=== PATIENT | female | born 1935 | race Caucasian/White ===

== ENCOUNTER 2017-09-05 07:45 | Outpatient (CLI) | payer MEDICARE ==
--- NOTE | 2017-09-05 09:31 | RAD ---
ESOPHAGRAM: History Dysphagia. Difficulty swallowing. Possible aspiration. FINDINGS: Single-column contrast evaluation of the esophagus shows normal anatomic appearance. A 12 mm barium tablet traversed the esophagus without holdup. There is good primary and secondary peristalsis. Non propulsive tertiary-type contractions were apparent. No significant hiatal hernia or gastroesophagea l reflux are visible. IMPRESSION: 1. Mild presbyesophagus. No significant abnormalities are demonstrated. 2. In setting of concern for aspiration and the patient's difficulty speaking, consultation with spe ech pathology may be helpful. POS: [facility]
== END 2017-09-05 07:46 | disposition home or self-care (01) ==
LOC: RAD 07:45
PROVIDERS: ATTEND Family Medicine
DX: R13.10 Dysphagia, unspecified (principal); K22.8 Other specified diseases of esophagus
CPT/HCPCS: 74220

== ENCOUNTER 2017-09-07 15:39 | Outpatient (CLI) | payer MEDICARE ==
[~2017-09-07 15:39] MED LIST: Gadobenate Dimeglumine 529 MG/1 ML (20ML VIAL) ONE
--- NOTE | 2017-09-07 19:22 | MRI ---
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 COMPARISON: MRI of 11/17/10. TECHNIQUE: Multiple sequences obtained in axial, sagittal, and coronal planes; pre and post IV injection of gado linium-based contrast agent: 7 mm of Multihance. FINDINGS: The cervical spinal cord is diffusely very atrophic. There is at least mild impingement on the police reserves commander ior aspect of the spinal cord by ligamentum flavum thickening at C2-3 level, a new finding since . The current T2 weighted axial images are severely degraded by patient motion. This sequence was r epeated, but there is severe patient motion on the repeated sequence as well. There are multiple scat tered small T2 hyperintense lesion in the bilateral casas radiata and centrum semiovale, representin g mild to moderate chronic ischemic white matter changes due to microvascular atherosclerosis. This i s minimally worse than in 11/17/10. There is diffuse brain parenchymal volume loss, typical for age. No mass effect, midline shift, recent or remote intra-axial hemorrhage, restricted diffusion, or extra- axial fluid collection. No evidence of moderate sized or large infarction of any age. No abnormal enh ancement or mass. IMPRESSION: 1. 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 2. Involutional changes and mild to moderate chronic ischemic white matter changes of the brain, typical for age. 3. No acute or aggressive intracranial process identified. [facility]ST[facility] POS: [facility]
== END 2017-09-07 15:40 | disposition home or self-care (01) ==
LOC: SCSMRI 15:39
PROVIDERS: ATTEND Psychiatry & Neurology Neurology
DX: G60.3 Idiopathic progressive neuropathy (principal); G93.89 Other specified disorders of brain
CPT/HCPCS: 70553; A9579

== ENCOUNTER 2018-04-11 13:29 | Outpatient (CLI) | payer MEDICARE | END 2018-04-11 13:30 | disposition home or self-care (01) | LOC: ULT 13:29 | PROVIDERS: ATTEND Family Medicine | DX: R60.9 Edema, unspecified (principal); I08.3 Combined rheumatic disorders of mitral, aortic and tricuspid valves; I38 Endocarditis, valve unspecified | CPT/HCPCS: 93306 ==

== ENCOUNTER 2018-08-16 13:48 | Inpatient (IN) | payer MEDICARE ==
[2018-08-16 15:05] LABS: #Basophils 0.1 thou/uL (0.0-0.2); #Eosinphils 0.2 thou/uL (0.0-0.7); #Lymphocytes 1.4 thou/uL (1.20-3.40); #Neutrophils 15.4 thou/uL (1.40-6.50); %Basophils 0.5 % (0.0-1.0); %Eosinophils 1.2 % (0.0-10.0); %Lymphocytes 7.5 % (21.0-51.0); %Monocytes 5.3 % (0.0-10.0); %Neutrophils 85.4 % (42.0-75.0); Hemoglobin 14.4 g/dL (12.0-16.0); Mean Corpuscular Hemoglobin 27.9 pg (27.0-31.0); Mean Corpuscular Volume 84.5 fL (78.0-98.0); Mean Platelet Volume 7.6 fL (7.4-10.4); Platelet Count 276 thou/uL (130-400); RBC Distribution Width 11.9 % (11.5-14.5); Red Blood Cell (RBC) Count 5.16 mill/uL (4.20-5.40); White Blood Cell (WBC) Count 18.1 thou/uL (4.8-10.8)
[2018-08-16 15:21] LABS: ALT (SGPT) 15 U/L (8-55); AST (SGOT) 15 U/L (5-34); Albumin 3.9 g/dL (3.4-4.8); Alkaline Phosphatase 77 U/L (40-150); Anion Gap 16 mmol/L (10-20); BUN (Urea Nitrogen) 41 mg/dL (9.8-20.1); Bilirubin, Total 0.8 mg/dL (0.2-1.2); Calc. Creatinine Clearance 0 mL/min (70-130); Calcium 10.3 mg/dL (7.8-10.44); Carbon Dioxide 25 mmol/L (23-31); Chloride 103 mmol/L (98-107); Estimated GFR-MDRD 25; Globulin 3.5 g/dL (2.4-3.5); Glucose 124 mg/dL (83-110); Lipase 61 U/L (8-78); Protein, Total 7.4 g/dL (6.0-8.3); Sodium 141 mmol/L (136-145)
[2018-08-16 15:22] LABS: CKMB 1.1 ng/mL (0-6.6); Troponin I Less than 0.010 ng/mL (< 0.028)
[2018-08-16 15:25] LABS: Potassium 2.9 mmol/L (3.5-5.1)
[2018-08-16] MEDS ORDERED: Potassium Chloride 20 MEQ/100 ML PREMIX BAG ONE (15:29)
--- NOTE | 2018-08-16 15:32 | RAD ---
PORTABLE CHEST: HISTORY: Urinary tract infection. FINDINGS: The lungs appear well aerated and clear. No focal infiltrate. Heart is mildly enlarged. Vascular m arkings upper normal. CP angles are obscured and tiny effusions are not excluded. Clips in the left axilla indicate prior left breast procedure. Mild aortic calcification. IMPRESSION: No evidence of acute lung process. Tiny effusions are not excluded. There is mild cardiomegaly. POS: [facility]
[2018-08-16 16:22] LABS: Bilirubin Negative (Negative); Blood, Urine Negative (Negative); Clarity Clear (Clear); Glucose, Urine (Dipstick) Negative (Negative); Leukocyte Negative (Negative); Nitrite Negative (Negative); Protein, Urine (Dipstick) 30 mg/dL (Neg-Trace); Urobilinogen 0.2 mg/dL (0.2-1.0)
[2018-08-16 16:26] LABS: RBC/HPF None Seen HPF (0-3); Squamous Epithelial 0-3 HPF (0-3); WBC/HPF None Seen HPF (0-3)
[2018-08-16 16:27] LABS: Bacteria/HPF Rare-Few HPF (None Seen)
--- NOTE | 2018-08-16 17:09 | CT ---
CT OF ABDOMEN PERFORMED WITHOUT CONTRAST ENHANCEMENT 08/16/18 COMPARISON: 03/18/17 study. HISTORY: Urinary tract infection. Patient has not urinated since this morning. No IV contrast administered due to low GFR. Lung bases are clear of any infiltrative process. There is some linear atelectasis or scar. The liver and spleen are normal in size and appearance. The pancreas is atrophic. Gallstones are note d. Right and left adrenal glands are normal in size. Lobulated contour to both kidneys are noted. In the anterior cortex of the mid pole of the left kidney, there previously was described an exophytic proj ection. This is incompletely characterized and did not definitely appear to represent a cyst and coul d just present lobulation. It measures approximately 12 to 13 mm in size. It is incompletely characte rized on this study. There are some hypodensities in the lower pole of both kidneys which appears sta ble and appear to represent cysts. There is a nonobstructing lower pole left renal calculus seen. The re is no significant periaortic or mesenteric adenopathy. CT OF PELVIS PERFORMED WITHOUT CONTRAST ENHANCEMENT: No evidence of adenopathy, mass or free fluid. The bladder does not appear distended. IMPRESSION: 1. Punctate nonobstructing lower pole left renal calculus. 2. Two hypodensities within the right kidney and one within the left kidney which most likely re presents cysts. There is also an area of slightly lobulated contour to the anterior cortex in the mid pole of the left kidney may just represent lobulation. It appears stable in appearance. 3. Also incidentally noted are two punctate nonobstructing upper pole right renal calculi. 4. No obstruction of either kidney. No bladder distention. POS: [facility]
[2018-08-16 17:13] LABS: Anion Gap 16 mmol/L (10-20); BUN (Urea Nitrogen) 41 mg/dL (9.8-20.1); Calc. Creatinine Clearance 0 mL/min (70-130); Calcium 9.6 mg/dL (7.8-10.44); Carbon Dioxide 22 mmol/L (23-31); Chloride 106 mmol/L (98-107); Estimated GFR-MDRD 27; Glucose 144 mg/dL (83-110); Sodium 141 mmol/L (136-145)
[2018-08-16 17:20] LABS: Troponin I Less than 0.010 ng/mL (< 0.028)
[2018-08-16 17:22] LABS: Potassium 2.9 mmol/L (3.5-5.1)
[2018-08-16] MEDS ORDERED: Piperacillin/Tazobactam 2.25 GM VIAL ONE (18:01)
[2018-08-16] MEDS ORDERED: Sodium Chloride 0.9% 100 ML ONE (18:01)
[2018-08-16] MEDS ORDERED: Sodium Chloride 0.9% 1,000 ML IV SCH ×2 (19:55→23:15)
[2018-08-16] MEDS ORDERED: Acetaminophen 325 MG TAB PO PRN (19:55)
[2018-08-16 20:40] LABS: Troponin I Less than 0.010 ng/mL (< 0.028)
[2018-08-16 21:57] LABS: Lactic Acid 2.5 mmol/L (0.5-2.2)
[2018-08-16] MEDS ORDERED: Senokot S 8.6-50 MG TAB PO PRN (23:09)
[2018-08-16] MEDS ORDERED: Ondansetron ODT 4 MG TAB PO PRN (23:09)
[2018-08-16] MEDS: Ondansetron PF 4 MG/2 ML Vial IVP PRN (23:21)
[2018-08-17] MEDS ORDERED: Piperacillin/Tazobactam 2.25 GM in Sodium Chloride 0.9% 100 ML IVPB SCH (02:00)
[2018-08-17 06:28] LABS: #Lymphocytes 0.9 thou/uL (1.20-3.40); #Monocytes 0.8 thou/uL (0.11-0.59); %Basophils 0.2 % (0.0-1.0); %Eosinophils 0.4 % (0.0-10.0); %Lymphocytes 8.9 % (21.0-51.0); %Monocytes 8.2 % (0.0-10.0); %Neutrophils 82.4 % (42.0-75.0); Hemoglobin 12.9 g/dL (12.0-16.0); Mean Corpuscular HGB CONC 33.4 g/dL (32.0-36.0); Mean Corpuscular Hemoglobin 29.5 pg (27.0-31.0); Mean Corpuscular Volume 88.5 fL (78.0-98.0); Mean Platelet Volume 7.4 fL (7.4-10.4); Platelet Count 259 thou/uL (130-400); RBC Distribution Width 12.1 % (11.5-14.5); Red Blood Cell (RBC) Count 4.37 mill/uL (4.20-5.40); White Blood Cell (WBC) Count 9.8 thou/uL (4.8-10.8)
[2018-08-17 06:33] LABS: Anion Gap 15 mmol/L (10-20); BUN (Urea Nitrogen) 37 mg/dL (9.8-20.1); BUN/Creatinine Ratio 22.84; Calc. Creatinine Clearance 32 mL/min (70-130); Calcium 8.6 mg/dL (7.8-10.44); Carbon Dioxide 16 mmol/L (23-31); Chloride 112 mmol/L (98-107); Estimated GFR-MDRD 30; Glucose 111 mg/dL (83-110); Sodium 140 mmol/L (136-145)
[2018-08-17 06:36] LABS: Phosphorus 1.9 mg/dL (2.3-4.7); Potassium 2.6 mmol/L (3.5-5.1)
[2018-08-17] MEDS ORDERED: Magnesium 2 GM/50 ML 2 GM in Premix Bag 1 BAG IVPB SCH (08:00)
--- NOTE | 2018-08-17 08:37 | HP ---
CHIEF COMPLAINT: Dysuria and urinary retention. HISTORY OF PRESENT ILLNESS: This is an 83-year-old female with past medical history of hypertension, breast CA, status post chemo and surgery, transient ischemic attacks, peripheral neuropathy, and history of recurrent kidney stones, presenting with dysuria and possible urinary retention. Per records, the patient finished taking antibiotics for UTI a day prior to this admission, the patient was on Cipro. The patient states that she has not been able to urinate over time, so family is concerned that the patient is probably retaining urine. At this point, the patient denies any pain, fever, dizziness, chest pain, palpitations, shortness of breath, abdominal pain; however, the patient is endorsing emesis x1 and generalized weakness. Of note, the patient had an echo done recently, which showed left ventricular ejection fraction of 60% to 65%. REVIEW OF SYSTEMS: Positive for nausea, vomiting, constipation, possible urinary retention, otherwise, as documented in the HPI. All other systems were reviewed and are negative. PAST MEDICAL HISTORY: Positive for hypertension; breast CA, status post chemotherapy and surgery; peripheral neuropathy; transient ischemic attack; kidney stone. FAMILY HISTORY: Reviewed and noncontributory to this visit. PAST SURGICAL HISTORY: Hysterectomy, mastectomy of the right breast, tonsillectomy. PSYCHIATRIC HISTORY: No previous psychiatric history. SOCIAL HISTORY: The patient denies alcohol use. Denies any use of illicit drugs, and denies any smoking history. The patient lives at home. ALLERGIES: THE PATIENT IS ALLERGIC TO ANCEF, IBUPROFEN, AND MACROBID. CURRENT MEDICATIONS: The patient takes Bystolic 10 mg, Tekturna HCT 300-25 mg a day, tramadol 50 mg every 6 hours, aspirin 81 mg, losartan. PHYSICAL EXAMINATION: VITAL SIGNS: The patient's blood pressure is 137/78, pulse ox 97, respiratory rate of 18, temperature of 98, O2 saturation of 94. GENERAL: The patient is alert, awake, oriented, lying in bed. Does not appear to be in any distress. HEENT: Normocephalic and atraumatic. Pupils are equally round and reactive to light. Extraocular movements are intact. No scleral icterus. No conjunctival pallor. Mucous membranes are dry. NECK: Supple. Full range of motion. Trachea is midline. No JVD. LUNGS: Clear to auscultation bilaterally. No wheezing, no rales, no rhonchi are appreciated. CARDIAC: Positive S1 and S2, regular rate and rhythm. No murmurs, no gallops, no rubs appreciated. ABDOMEN: Soft, nontender, and nondistended. Positive bowel sounds in all quadrants. EXTREMITIES: The patient has 5/5 upper extremity strength and 5/5 lower extremity strength. NEUROLOGIC: Cranial nerves 2 through 12 grossly intact. No neurologic deficits noted. SKIN: Warm, dry, and intact. IMAGING DATA: EKG, 12 leads, shows normal sinus rhythm with a rate of 92. Chest x-ray shows possible small bilateral pleural effusions. LABORATORY DATA: WBC is 18.1, hemoglobin is 14.4, hematocrit is 45.4, platelet count is 276, neutrophils of 85.4%. Sodium is 141, potassium is 2.9, chloride is 106, carbon dioxide of 22, anion gap of 16, BUN is 41, creatinine is 1.79, glucose is 144, lactic acid is 2.3. Troponin is 0.010 x2. Urinalysis is negative for any leukocyte esterases or nitrites. ASSESSMENT AND PLAN: This is an 83-year-old female with past medical history of urinary tract infection, presenting with; 1. Urinary retention. At this point, we will bladder scan the patient, we will put a Carvajal in place, and we will monitor the patient. We will follow up on morning basic metabolic panel. 2. Acute on chronic renal failure, most likely due to dehydration. We will rule out postrenal obstruction. We will do a renal panel. We will follow up on the results. 3. Hypokalemia. We will replete the patient's electrolytes. 4. Lactic acidosis, likely due to infectious etiology. We will give the patient IV hydration. We will follow up on lactic acid. 5. Leukocytosis, most likely due to urinary tract infection. The patient does not have positive nitrite or leukocyte esterase; however, we will follow up on the cultures. We will continue the patient on antibiotics. 6. Deep venous thrombosis and gastrointestinal prophylaxis. Job ID: [id number]
[2018-08-17] MEDS: Potassium Chloride 10 MEQ in Premix Bag 1 BAG IVPB SCH ×5 (08:48→15:07)
[2018-08-17] MEDS ORDERED: Enoxaparin Sodium 40 MG/0.4 ML SYRINGE SC SCH (09:00)
[2018-08-17] MEDS ORDERED: Losartan 25 MG TAB PO SCH (09:00)
[2018-08-17] MEDS ORDERED: CRANBERRY 1000 MG PO SCH (09:00)
[2018-08-17] MEDS ORDERED: Non-Formulary Item 1 EACH (Omeprazole [Omeprazole] 40 MG) PO SCH (09:00)
[2018-08-17] MEDS ORDERED: Potassium Phosphate 12 MMOL in Sodium Chloride 0.9% 100 ML IVPB SCH (10:45)
[2018-08-17] MEDS: Nebivolol HCl 5 MG TAB PO SCH (10:51)
[2018-08-17] MEDS: Enoxaparin Sodium 30 MG/0.3 ML SYRINGE SC SCH (11:00)
[2018-08-17] MEDS: Famotidine 20 MG TAB PO SCH (11:08)
[2018-08-17] MEDS: Cholecalciferol (Vitamin D3) 400 UNITS TAB PO SCH (11:08)
[2018-08-17] MEDS: Calcium Carbonate 600 MG TAB PO SCH (11:08)
[2018-08-17] MEDS ORDERED: SODIUM CHLORIDE 0.9% IVPB SCH (12:30)
[2018-08-17] MEDS ORDERED: SODIUM PHOSPHATE IVPB SCH (12:30)
--- NOTE | 2018-08-17 12:48 | PDOC.PN ---
- Subjective Encounter Start Date: 08/17/18 Encounter Start Time: 12:46 Subjective: feels much better.discussed events up to admission over last 2 weeks -: weak and low BP w recent UTI Rx w Cipro as an OP -: bowel incontinence,urinary frequency & hesitancy.Poor PO intake - Objective Resuscitation Status - Order Detail: 08/16/18 23:09 Resuscitation Status Routine Resuscitation Status: FULL: Full Resuscitation Vital Signs & Weight: Vital Signs (12 hours) Temp Pulse Resp BP Pulse Ox 08/17/18 08:30 98.2 F 71 18 144/65 H 100 Weight Weight 176 lb Result Diagrams: 08/17/18 05:54 08/17/18 05:54 Additional Labs: Laboratory Tests 08/07/18 08/16/18 08/16/18 13:01 14:53 14:53 WBC 18.1 H Creatinine 1.98 H Magnesium Troponin I Less than 0.010 08/16/18 08/16/18 08/16/18 14:53 16:50 16:50 WBC Creatinine 1.89 H 1.79 H Magnesium Troponin I Less than 0.010 08/16/18 08/16/18 08/17/18 20:03 21:31 05:54 WBC Creatinine 1.62 H Magnesium 1.7 Troponin I Less than 0.010 08/17/18 08/17/18 05:54 05:54 WBC 9.8 Creatinine Magnesium 1.2 L Troponin I Phys Exam - Physical Examination Constitutional: NAD tired looking HEENT: PERRLA, moist MMs, sclera anicteric, oral pharynx no lesions Neck: no nodes, no JVD, supple, full ROM Respiratory: no wheezing, no rales, no rhonchi, clear to auscultation bilateral Cardiovascular: RRR, no significant murmur Gastrointestinal: soft, non-tender, no distention, positive bowel sounds Musculoskeletal: no edema, pulses present Neurological: non-focal, normal sensation, moves all 4 limbs Psychiatric: normal affect, A&O x 3 Skin: no rash Dx/Plan (1) BA (acute kidney injury) Code(s): N17.9 - ACUTE KIDNEY FAILURE, UNSPECIFIED Status: Acute (2) Hypokalemia Code(s): E87.6 - HYPOKALEMIA Status: Acute (3) Hypomagnesemia Code(s): E83.42 - HYPOMAGNESEMIA Status: Acute (4) Hypophosphatasia Code(s): E83.39 - OTHER DISORDERS OF PHOSPHORUS METABOLISM Status: Acute (5) Generalized weakness Code(s): R53.1 - WEAKNESS Status: Acute (6) Urinary retention Code(s): R33.9 - RETENTION OF URINE, UNSPECIFIED Status: Acute (7) Essential (primary) hypertension Code(s): I10 - ESSENTIAL (PRIMARY) HYPERTENSION Status: Chronic (8) H/O malignant neoplasm of breast Code(s): Z85.3 - PERSONAL HISTORY OF MALIGNANT NEOPLASM OF BREAST Status: Chronic (9) H/O TIA (transient ischemic attack) and stroke Code(s): Z86.73 - PRSNL HX OF TIA (TIA), AND CEREB INFRC W/O RESID DEFICITS Status: Chronic - Plan PT/OT, out of bed/ambulate, DVT proph w/SCDs Likley scenario is dehydration from poor PO intake. -: replace and recheck lytes.gentle IVF -: check blood & urine Cx. hold off ABx for now.no clear indication -: Carvajal placed for urinary retention.family requesting Dr. mendieta to be notif -: ECHO checked from 04/05 w NL EF.Cardiac Enzymes normal.no ACS * .check Cdiff as recent Abx use * no clear etiology except for dehydration .Discussed w family * will follow * am labs * appreciate nephrology input Review of Systems - Review of Systems Constitutional: weakness, malaise. negative: fever, chills, sweats, other ENT: negative: Ear Pain, Ear Discharge, Nose Pain, Nose Discharge, Nose Congestion, Mouth Pain, Mouth Swelling, Throat Pain, Throat Swelling, Other Respiratory: negative: Cough, Dry, Shortness of Breath, Hemoptysis, SOB with Excertion, Pleuritic Pain, Sputum, Wheezing Cardiovascular: negative: chest pain, palpitations, orthopnea, paroxysmal nocturnal dyspnea, edema, light headedness, other Gastrointestinal: negative: Nausea, Vomiting, Abdominal Pain, Diarrhea, Constipation, Melena, Hematochezia, Other Genitourinary: Frequency, Retention. negative: Dysuria, Incontinence, Hematuria , Other Musculoskeletal: negative: Neck Pain, Shoulder Pain, Arm Pain, Back Pain, Hand Pain, Leg Pain, Foot Pain, Other Skin: negative: Rash, Lesions, Kevin, Bruising, Other Neurological: negative: Weakness, Numbness, Incoordination, Change in Speech, Confusion, Seizures, Other - Medications/Allergies Allergies/Adverse Reactions: Allergies Allergy/AdvReac Type Severity Reaction Status Date / Time cefazolin [From [facility]] Allergy Intermediate Rash Verified 09/23/16 13:53 ibuprofen Allergy NOT SURE Verified 09/23/16 13:14 OF REACTION nitrofurantoin Allergy Verified 08/17/18 00:40 [From Macrobid] Medications: Current Medications Aspirin (Aspirin Chewable) 81 mg PO DAILY [facility] Last Admin: 08/17/18 11:07 Dose: Not Given Bisacodyl (Dulcolax) 10 mg PO DAILYPRN PRN PRN Reason: Constipation Calcium Carbonate (Caltrate) 1,200 mg PO DAILY [facility] Last Admin: 08/17/18 11:08 Dose: Not Given Cholecalciferol (Vitamin D) 800 units PO DAILY [facility] Last Admin: 08/17/18 11:08 Dose: Not Given Enoxaparin Sodium (Lovenox) 30 mg SC 0900 [facility] Last Admin: 08/17/18 11:00 Dose: 30 mg Famotidine (Pepcid) 20 mg SLOW IVP QAM [facility] Famotidine (Pepcid) 20 mg PO QAM [facility] Last Admin: 08/17/18 11:08 Dose: Not Given Potassium Chloride/Sodium Chloride (Ns 0.9% W/ 40 Meq Kcl) 1,000 mls @ 100 mls/ hr IV .Q10H [facility] Sodium Phosphate 12 mmol/ (Sodium Chloride) 104 mls @ 25 mls/hr IVPB NOW [facility] Stop: 08/17/18 14:30 Nebivolol (Bystolic) 20 mg PO DAILY [facility] Last Admin: 08/17/18 10:51 Dose: 20 mg Ondansetron HCl (Zofran Odt) 4 mg PO Q6H PRN PRN Reason: Nausea/Vomiting Ondansetron HCl (Zofran) 4 mg IVP Q6H PRN PRN Reason: Nausea/Vomiting Last Admin: 08/16/18 23:21 Dose: 4 mg Pantoprazole Sodium (Protonix) 40 mg PO DAILY [facility] Last Admin: 08/17/18 11:08 Dose: Not Given Senna/Docusate Sodium (Senokot S) 2 tab PO BID PRN PRN Reason: Constipation Sodium Chloride (Flush - Normal Saline) 10 ml IVF Q12HR [facility] Last Admin: 08/17/18 11:10 Dose: Not Given Sodium Chloride (Flush - Normal Saline) 10 ml IVF PRN PRN PRN Reason: Saline Flush Tramadol HCl (Ultram) 50 mg PO TID PRN PRN Reason: Mild-Moderate Pain (1-5)
[2018-08-17] MEDS: Famotidine/PF 20 mg/2ml Vial SLOW IVP SCH (13:05)
[2018-08-17] MEDS: NS 0.9% w/ 40 MEQ KCL 1,000 ML IV SCH (13:07)
[2018-08-17] MEDS: traMADol HCl 50 MG TAB PO PRN (17:37)
[2018-08-17] MEDS ORDERED: Loperamide HCl 2 MG CAP PO PRN (20:18)
[2018-08-17] MEDS: Ondansetron PF 4 MG/2 ML Vial IVP PRN (20:22)
[2018-08-17] MEDS ORDERED: traMADol HCl 50 MG TAB PO SCH (20:30)
--- NOTE | 2018-08-17 22:51 | CON ---
DATE OF CONSULTATION: HISTORY: Ms. Huitron is an 83-year-old white female, who was admitted due to UTI and volume depletion. She was treated for UTI by her PCP. However, she had persistent nausea and vomiting. The patient has history of decreased p.o. intake. During the initial evaluation in the ER, she was noted to be hypokalemic and in acute kidney injury. Please note, she is taking Tekturna and losartan at home, which may be contributing to the renal dysfunction. Potassium is also currently being corrected. We are now being consulted for her acute kidney injury. REVIEW OF SYSTEMS: Positive for nausea and vomiting. Positive for generalized malaise. Positive for dysuria. Positive for urinary frequency. No diarrhea. No constipation. Decreased appetite. Decreased energy level. No headache. No syncopal episodes. No chest pain. No shortness or breath. No abdominal pain. HOME MEDICATIONS: Included the following; 1. Omeprazole 40 mg daily. 2. Losartan 100 mg once a day. 3. Tekturna 1 tablet daily. 4. Cranberry pill 1000 mg daily. 5. Calcium acetate daily. 6. Aspirin 81 mg tablet once a day. 7. Bystolic 20 mg daily. 8. Vitamin D2 of 800 units daily. 9. Tramadol p.r.n. ALLERGIES: CEFAZOLIN, IBUPROFEN, AND NITROFURANTOIN. TRAUMA: None. IMMUNIZATION: Up-to-date. HOSPITALIZATION: Please see past medical history. PAST MEDICAL HISTORY: 1. Hypertension. 2. DJD. 3. Status post pneumonia. 4. Status post ? TIA. 5. History of peripheral neuropathy. 6. Nephrolithiasis. 7. Breast cancer - in remission, status post chemotherapy. PAST SURGICAL HISTORY: 1. Status post hysterectomy. 2. Status post bilateral mastectomy. 3. Status post breast biopsy. 4. Status post appendectomy. 5. Status post colonoscopy. 6. Status post thoracentesis. 7. Status post tonsillectomy. SOCIAL HISTORY: The patient lives by herself. She has 3 children. 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 Education; high school. Currently, no smoking and no alcohol intake. Lives in [place]. She lives alone. Sedentary lifestyle. No IV drug use. FAMILY HISTORY: No family history of ESRD. PHYSICAL EXAMINATION: VITAL SIGNS: Blood pressure is 133/69, heart rate 86, respiratory rate 16, temperature 98.3, and pulse ox 99%. GENERAL: Noted to be awake, but somewhat lethargic, not in overt distress. SKIN: Adequate turgor. HEENT: She has pinkish conjunctivae. Anicteric sclerae. NECK: No neck mass. No carotid bruits. No JVD. CHEST: No deformities. LUNGS: Clear breath sounds. No wheezes. No crackles. HEART: Normal sinus rhythm. No murmur. No gallops. No rubs. ABDOMEN: Globular, soft, and nontender. No masses. EXTREMITIES: No edema. No deformities. NEUROLOGIC: Awake and oriented to 3 spheres. Can follow simple commands. Moving all extremities. HOSPITAL MEDICATIONS: Include; 1. Status post magnesium sulphate 2 g - given. 2. P.r.n Zofran. 3. Aspirin 81 mg tablet once daily. 4. Lovenox 30 mg subcu daily. LABORATORY DATA: Laboratories of August 17, 2018, white count 9.8 and hemoglobin 12.9. Sodium 140, potassium 2.6, chloride 112, carbon dioxide 16, BUN 37, creatinine 1.62, glucose 111, phosphorus is 1.9, and albumin 3.0. Magnesium is 1.2. Previous creatinine back in March 2018 showed a normal creatinine. Urinalysis showed a specific gravity . No casts noted, no protein, no red cells, and no white cells. DIAGNOSTIC DATA: CT scan of the abdomen and pelvis showed no acute intraabdominal pathology. Finding of renal stones. Kidney shows no obstruction. ASSESSMENT AND PLAN: 1. Acute kidney injury - consider hemodynamically mediated renal dysfunction. The patient has history of decreased p.o. intake as well as taking nephrotoxic drugs - on losartan and Tekturna. Our plan is to hold losartan and Tekturna. Continue IV hydration. I changed IV fluid to normal saline with 75 mL/hour. I do anticipate renal improvement with this patient. CAT scan of the abdomen showed no obstruction of the kidneys. There is no indication for any dialytic intervention. 2. Hypomagnesemia. The patient has been replenished with IV magnesium sulphate. We will recheck baseline CBC and magnesium level in a.m. Job ID: [id number]
[2018-08-18] MEDS: NS 0.9% w/ 40 MEQ KCL 1,000 ML IV SCH ×4 (04:17→23:56)
[2018-08-18 05:51] LABS: #Basophils 0.1 thou/uL (0.0-0.2); #Eosinphils 0.1 thou/uL (0.0-0.7); #Lymphocytes 2.1 thou/uL (1.20-3.40); #Monocytes 1.4 thou/uL (0.11-0.59); #Neutrophils 5.9 thou/uL (1.40-6.50); %Basophils 0.6 % (0.0-1.0); %Eosinophils 0.7 % (0.0-10.0); %Lymphocytes 22.4 % (21.0-51.0); %Monocytes 14.5 % (0.0-10.0); %Neutrophils 61.9 % (42.0-75.0); Anion Gap 8 mmol/L (10-20); BUN (Urea Nitrogen) 29 mg/dL (9.8-20.1); Calc. Creatinine Clearance 39 mL/min (70-130); Calcium 8.7 mg/dL (7.8-10.44); Carbon Dioxide 21 mmol/L (23-31); Chloride 117 mmol/L (98-107); Estimated GFR-MDRD 38; Glucose 98 mg/dL (83-110); Hemoglobin 11.6 g/dL (12.0-16.0); Magnesium 1.4 mg/dL (1.6-2.6); Mean Corpuscular HGB CONC 34.1 g/dL (32.0-36.0); Mean Corpuscular Hemoglobin 30.3 pg (27.0-31.0); Mean Corpuscular Volume 88.9 fL (78.0-98.0); Mean Platelet Volume 7.8 fL (7.4-10.4); Platelet Count 207 thou/uL (130-400); RBC Distribution Width 12.4 % (11.5-14.5); Red Blood Cell (RBC) Count 3.82 mill/uL (4.20-5.40); Sodium 143 mmol/L (136-145); White Blood Cell (WBC) Count 9.5 thou/uL (4.8-10.8)
[2018-08-18] MEDS ORDERED: Potassium Chloride 20 MEQ TAB PO SCH (09:00)
[2018-08-18] MEDS ORDERED: Magnesium 2 GM/50 ML 2 GM in Premix Bag 1 BAG IVPB SCH (09:00)
--- NOTE | 2018-08-18 09:44 | CON ---
DATE OF CONSULTATION: 08/17/2018 HISTORY OF PRESENT ILLNESS: This is an 83-year-old white female, who is known for a number of years. She has had occasional bladder infections. She has had ureteral stones and has had sepsis related to ureteral stones. She has had ureteroscopy done in the past. She was admitted yesterday, not feeling well, nausea and vomiting, hypokalemic, dehydrated, really just not feeling good. No real particular urinary complaints. She just finished a course of Cipro for an E. coli that was sensitive to Cipro. She at that time had just felt poorly as a cause for them to check her urine culture. She did not have the burning or the typical symptoms associated with an infection of the urinary tract, which she actually rarely gets, she just does not feel well. She has had stable vital signs since this admission. Her urinalysis was clear. She was catheterized in the ER last night and only 11 mL were obtained. She has had a Carvajal catheter placed today because she was feeling she was having some difficulty urinating and postvoid residual was 350 mL. The catheter has drained about 500 mL of a fairly clear looking urine currently. She has been throwing up at home, so she probably has been dehydrated. She has now had some type of a long line placed as her IVs were not staying patent this morning, so she has an easier job being rehydrated with IV fluids. Her potassium is being replaced. She did receive some Levaquin yesterday; however, this had been stopped, which I think is a good idea since she has been admitted. Her creatinine is elevated. She has some chronic renal insufficiency and I think this will probably come down with hydration. She has also been having loose stools, not diarrhea but just inability to control her bowel movements, which is unusual for her and she is currently in a diaper because of that. A day or two ago, she was having trouble with constipation. Her medical history is fairly well documented. She has had breast cancer and she has had surgery and chemotherapy for that. She has had ureteral stones requiring surgery. She has had TIA. She has had hypertension. She has, I believe some mildly underlying neurologic disorder, which has bothered her for the last few years. She has had a hysterectomy. In terms of her bladder, I would recommend we leave this Carvajal catheter in just for her own ease. She is getting older and she has a fall risk. She is weak and tired and I think until she gets her strength back, it is probably a day or two, we will leave the Carvajal in. We will check her cultures as they return. I doubt she has a bladder infection or urinary tract infection currently. Hopefully, as she begins to feel better, she can go from clear liquids to regular diet as she gets some strength back and she will feel better. We can get her catheter out. I would think she would go back to normal voiding pattern for her. Job ID: [id number]
--- NOTE | 2018-08-18 09:50 | PRG ---
DATE OF SERVICE: 08/18/2018 SUBJECTIVE: Ms. Huitron is an 83-year-old white female, who was seen for an acute kidney injury with a creatinine of 1.89. At that time, the Tekturna and losartan were discontinued. We felt that she was simply having acute kidney injury that was hemodynamically mediated renal dysfunction. IV fluid was also started. She was also noted to be hypokalemic, and for that reason, we started her on potassium replacement. This morning, she is feeling better. She is feeling stronger. Her nausea is much improved. She is currently on IV fluid with potassium. No complaints of chest pain or shortness of breath. OBJECTIVE: VITAL SIGNS: Blood pressure 135/59, heart rate 56, respiratory rate 18, temperature 97.8, and pulse ox 95%. GENERAL: Awake, alert, comfortable, not in overt distress. SKIN: Adequate turgor. HEENT: She has pinkish conjunctivae. Anicteric sclerae. NECK: No neck mass. No carotid bruits. No JVD. CHEST: No deformities. LUNGS: Clear breath sounds. No wheezing. No crackles. HEART: Normal sinus rhythm. No murmurs. No gallops. No rubs. ABDOMEN: Globular, soft, and nontender. No masses. EXTREMITIES: No edema. No deformities. MEDICATIONS: Medications of August 18, 2018, was reviewed. LABORATORY DATA: Laboratories of August 18, 2018, white count 9.5, hemoglobin 11.6, hematocrit 34. Sodium 143, potassium 3, chloride 117, carbon dioxide 21, BUN 29, creatinine 1.33, GFR 38 mL/minute, calcium 8.7, and magnesium is 1.4. ASSESSMENT AND PLAN: 1. Acute kidney injury - hemodynamically mediated renal dysfunction, much improved with IV hydration. Continue to hold off losartan and Tekturna. We would probably continue the IV fluid for another day or so. 2. Hypokalemia correction of potassium. 3. Hypomagnesemia. We will again schedule for magnesium sulfate 2 g over 2 hours. 4. Hypertension. Adequate control. We will recheck baseline CBC and magnesium level in a.m. Job ID: [id number]
[2018-08-18] MEDS: Calcium Carbonate 600 MG TAB PO SCH (10:03)
[2018-08-18] MEDS: Cholecalciferol (Vitamin D3) 400 UNITS TAB PO SCH (10:03)
[2018-08-18] MEDS: Famotidine/PF 20 mg/2ml Vial SLOW IVP SCH (10:04)
[2018-08-18] MEDS: Nebivolol HCl 5 MG TAB PO SCH (10:04)
[2018-08-18] MEDS: Enoxaparin Sodium 30 MG/0.3 ML SYRINGE SC SCH (10:05)
[2018-08-18] MEDS: Famotidine 20 MG TAB PO SCH (10:05)
[2018-08-18] MEDS ORDERED: Magnesium 2 GM/50 ML BAG (IN WATER) ONE (10:14)
--- NOTE | 2018-08-18 14:24 | PDOC.PN ---
- Subjective Encounter Start Date: 08/18/18 Encounter Start Time: 07:00 Pt seen for followup re: acute renal failure. Feels better today. Had diarrhea last night. - Objective Resuscitation Status - Order Detail: 08/16/18 23:09 Resuscitation Status Routine Resuscitation Status: FULL: Full Resuscitation MAR Reviewed: Yes Vital Signs & Weight: Vital Signs (12 hours) Temp Pulse Pulse Pulse Resp BP BP 08/18/18 12:03 97.9 F 52 L 18 08/18/18 10:18 56 L 54 L 166/74 H 171/69 H 08/18/18 09:15 08/18/18 07:55 97.8 F 56 L 18 08/18/18 03:08 97.4 F L 61 14 BP Pulse Ox 08/18/18 12:03 165/70 H 94 L 08/18/18 10:18 08/18/18 09:15 95 08/18/18 07:55 135/59 L 95 08/18/18 03:08 130/78 93 L Weight Admit Weight 176 lb Weight 175 lb 5 oz I&O: 08/17/18 08/18/18 08/19/18 06:59 06:59 06:59 Intake Total 1547 Output Total 900 Balance 647 Result Diagrams: 08/18/18 05:05 08/18/18 05:05 EKG Reviewed by me: Yes (Tele: sinus bradycardia) Phys Exam - Physical Examination Constitutional: NAD HEENT: moist MMs Neck: supple Respiratory: clear to auscultation bilateral Cardiovascular: RRR Gastrointestinal: soft Neurological: moves all 4 limbs Psychiatric: normal affect Dx/Plan (1) BA (acute kidney injury) Code(s): N17.9 - ACUTE KIDNEY FAILURE, UNSPECIFIED Status: Acute Comment: creatinine improved to 1.33 today. (2) Generalized weakness Code(s): R53.1 - WEAKNESS Status: Acute Comment: Improving, may need SNU or Rehab (3) Hypokalemia Code(s): E87.6 - HYPOKALEMIA Status: Acute Comment: replace potassium and recheck (4) Diarrhea Code(s): R19.7 - DIARRHEA, UNSPECIFIED Status: Acute Comment: c. diff -ve, on PRN Imodium (5) Essential (primary) hypertension Code(s): I10 - ESSENTIAL (PRIMARY) HYPERTENSION Status: Chronic Comment: monitor vital signs and titrate antihypertensives as needed - Plan * . Review of Systems - Review of Systems Cardiovascular: negative: chest pain, palpitations, orthopnea, paroxysmal nocturnal dyspnea, edema, light headedness Gastrointestinal: Diarrhea. negative: Nausea, Vomiting, Abdominal Pain, Constipation, Melena, Hematochezia - Medications/Allergies Allergies/Adverse Reactions: Allergies Allergy/AdvReac Type Severity Reaction Status Date / Time cefazolin [From Ancef] Allergy Intermediate Rash Verified 09/23/16 13:53 ibuprofen Allergy NOT SURE Verified 09/23/16 13:14 OF REACTION nitrofurantoin Allergy Verified 08/17/18 00:40 [From Macrobid] Medications: Current Medications Aspirin (Aspirin Chewable) 81 mg PO DAILY [facility] Last Admin: 08/18/18 10:04 Dose: 81 mg Bisacodyl (Dulcolax) 10 mg PO DAILYPRN PRN PRN Reason: Constipation Calcium Carbonate (Caltrate) 1,200 mg PO DAILY [facility] Last Admin: 08/18/18 10:03 Dose: 1,200 mg Cholecalciferol (Vitamin D) 800 units PO DAILY [facility] Last Admin: 08/18/18 10:03 Dose: 800 units Enoxaparin Sodium (Lovenox) 30 mg SC 0900 [facility] Last Admin: 08/18/18 10:05 Dose: 30 mg Famotidine (Pepcid) 20 mg SLOW IVP QAM [facility] Last Admin: 08/18/18 10:04 Dose: 20 mg Famotidine (Pepcid) 20 mg PO QAM [facility] Last Admin: 08/18/18 10:05 Dose: Not Given Potassium Chloride/Sodium Chloride (Ns 0.9% W/ 40 Meq Kcl) 1,000 mls @ 100 mls/ hr IV .Q10H [facility] Last Admin: 08/18/18 08:16 Dose: Not Given Loperamide HCl (Imodium) 2 mg PO ASDIR PRN PRN Reason: Diarrhea/Loose Stools Nebivolol (Bystolic) 20 mg PO DAILY [facility] Last Admin: 08/18/18 10:04 Dose: 20 mg Ondansetron HCl (Zofran Odt) 4 mg PO Q6H PRN PRN Reason: Nausea/Vomiting Ondansetron HCl (Zofran) 4 mg IVP Q6H PRN PRN Reason: Nausea/Vomiting Last Admin: 08/17/18 20:22 Dose: 4 mg Pantoprazole Sodium (Protonix) 40 mg PO DAILY [facility] Last Admin: 08/18/18 10:03 Dose: 40 mg Senna/Docusate Sodium (Senokot S) 2 tab PO BID PRN PRN Reason: Constipation Sodium Chloride (Flush - Normal Saline) 10 ml IVF Q12HR [facility] Last Admin: 08/18/18 10:06 Dose: 10 ml Sodium Chloride (Flush - Normal Saline) 10 ml IVF PRN PRN PRN Reason: Saline Flush Tramadol HCl (Ultram) 50 mg PO TID PRN PRN Reason: Mild-Moderate Pain (1-5) Last Admin: 08/17/18 17:37 Dose: 50 mg
[2018-08-19] MEDS: traMADol HCl 50 MG TAB PO PRN ×2 (04:46→22:59)
[2018-08-19 07:06] LABS: #Eosinphils 0.5 thou/uL (0.0-0.7); #Lymphocytes 2.2 thou/uL (1.20-3.40); #Monocytes 1.1 thou/uL (0.11-0.59); #Neutrophils 6.3 thou/uL (1.40-6.50); %Basophils 0.3 % (0.0-1.0); %Eosinophils 5.1 % (0.0-10.0); %Lymphocytes 21.7 % (21.0-51.0); %Monocytes 10.9 % (0.0-10.0); %Neutrophils 62.1 % (42.0-75.0); Hemoglobin 10.4 g/dL (12.0-16.0); Mean Corpuscular HGB CONC 33.5 g/dL (32.0-36.0); Mean Corpuscular Hemoglobin 29.6 pg (27.0-31.0); Mean Corpuscular Volume 88.3 fL (78.0-98.0); Mean Platelet Volume 7.4 fL (7.4-10.4); Platelet Count 164 thou/uL (130-400); RBC Distribution Width 12.3 % (11.5-14.5); Red Blood Cell (RBC) Count 3.51 mill/uL (4.20-5.40); White Blood Cell (WBC) Count 10.1 thou/uL (4.8-10.8)
[2018-08-19 07:30] LABS: Anion Gap 4 mmol/L (10-20); BUN (Urea Nitrogen) 26 mg/dL (9.8-20.1); Calc. Creatinine Clearance 44 mL/min (70-130); Calcium 8.9 mg/dL (7.8-10.44); Carbon Dioxide 22 mmol/L (23-31); Chloride 120 mmol/L (98-107); Estimated GFR-MDRD 43; Glucose 94 mg/dL (83-110); Magnesium 1.4 mg/dL (1.6-2.6); Sodium 142 mmol/L (136-145)
[2018-08-19] MEDS: Nebivolol HCl 5 MG TAB PO SCH (09:42)
[2018-08-19] MEDS: Cholecalciferol (Vitamin D3) 400 UNITS TAB PO SCH (09:43)
[2018-08-19] MEDS: Calcium Carbonate 600 MG TAB PO SCH (09:45)
[2018-08-19] MEDS: Enoxaparin Sodium 30 MG/0.3 ML SYRINGE SC SCH (09:49)
[2018-08-19] MEDS ORDERED: Magnesium 2 GM/50 ML 2 GM in Premix Bag 1 BAG IVPB SCH (10:45)
[2018-08-19] MEDS: Famotidine/PF 20 mg/2ml Vial SLOW IVP SCH (10:59)
[2018-08-19] MEDS: Famotidine 20 MG TAB PO SCH (10:59)
--- NOTE | 2018-08-19 11:44 | PRG ---
DATE OF SERVICE: 08/19/2018 SUBJECTIVE: Ms. Huitron is an 83-year-old white female, who was admitted for an acute kidney injury. She was noted to be volume depleted and we felt that this was simply all hemodynamically-mediated renal dysfunction. Her losartan and Tekturna were all discontinued. Renal function improved. The best value of creatinine 1.13 today. She was also found to be hypomagnesemic. She is receiving magnesium sulfate at the present time IV. I did discuss the case with the hospitalist and she will be discharged on magnesium oxide 400 mg tab daily. No other complaints. She is feeling better. No chest pain or shortness of breath. OBJECTIVE: VITAL SIGNS: Blood pressure 170/72, heart rate 61, respiratory rate 20, temperature 98.7, pulse ox 96%. GENERAL: Noted to be awake, alert, comfortable, not in overt distress. SKIN: Adequate turgor. HEENT: She has a pinkish conjunctivae. Anicteric sclerae. NECK: No neck mass. No carotid bruits. No JVD. CHEST: No deformities. LUNGS: Clear breath sounds. No wheezing. No crackles. HEART: Normal sinus rhythm. No murmurs. No gallops. No rubs. ABDOMEN: Globular, soft, nontender. No masses. EXTREMITIES: No edema. No deformities. MEDICATIONS: On August 19, 2018, reviewed. LABORATORY DATA: On August 19, 2018; white count 10.1, hemoglobin 10.4. Sodium 142, potassium 4, chloride 120, carbon dioxide 22, BUN 26, creatinine 1.19, calcium 8.9, and magnesium 1.4. ASSESSMENT AND PLAN: 1. Hypomagnesemia - continuing magnesium sulfate IV supplementation. She will also be maintained on an oral magnesium oxide 400 mg tab once a day. 2. Hypokalemia, resolved with IV potassium. 3. Acute kidney injury - hemodynamically-mediated renal dysfunction, much improved with IV hydration. We will continue to hold off losartan and Tekturna. 4. Agree with current management of the patient for rehab transfer. Job ID: [id number]
--- NOTE | 2018-08-19 12:34 | PDOC.PN ---
- Subjective Encounter Start Date: 08/19/18 Encounter Start Time: 07:20 Pt seen for followup re: acute renal failure. Feels better. Not ambulating much. - Objective Resuscitation Status - Order Detail: 08/16/18 23:09 Resuscitation Status Routine Resuscitation Status: FULL: Full Resuscitation MAR Reviewed: Yes Vital Signs & Weight: Vital Signs (12 hours) Temp Pulse Resp BP Pulse Ox 08/19/18 08:19 98.7 F 61 20 170/72 H 96 08/19/18 08:15 96 08/19/18 04:00 98.1 F 67 18 153/68 H 93 L Weight Admit Weight 176 lb Weight 176 lb 1 oz I&O: 08/18/18 08/19/18 08/20/18 06:59 06:59 06:59 Intake Total 1547 2580 240 Output Total 900 650 Balance 647 1930 240 Result Diagrams: 08/19/18 06:58 08/19/18 06:58 EKG Reviewed by me: Yes (Tele: NSR) Phys Exam - Physical Examination Constitutional: NAD HEENT: moist MMs Neck: supple Respiratory: clear to auscultation bilateral Cardiovascular: RRR Gastrointestinal: soft Neurological: moves all 4 limbs Psychiatric: normal affect Dx/Plan (1) BA (acute kidney injury) Code(s): N17.9 - ACUTE KIDNEY FAILURE, UNSPECIFIED Status: Acute Comment: creatinine improved to 1.19 today. (2) Physical deconditioning Code(s): R53.81 - OTHER MALAISE Status: Acute Comment: awaiting Rehab eval (3) Essential (primary) hypertension Code(s): I10 - ESSENTIAL (PRIMARY) HYPERTENSION Status: Chronic Comment: monitor vital signs and titrate antihypertensives as needed (4) Diarrhea Code(s): R19.7 - DIARRHEA, UNSPECIFIED Status: Resolved (5) Hypokalemia Code(s): E87.6 - HYPOKALEMIA Status: Resolved - Plan * . Review of Systems - Review of Systems Constitutional: weakness Cardiovascular: negative: chest pain, palpitations, orthopnea, paroxysmal nocturnal dyspnea, edema, light headedness Gastrointestinal: negative: Nausea, Vomiting, Abdominal Pain, Diarrhea, Constipation, Melena, Hematochezia - Medications/Allergies Allergies/Adverse Reactions: Allergies Allergy/AdvReac Type Severity Reaction Status Date / Time cefazolin [From Ancef] Allergy Intermediate Rash Verified 09/23/16 13:53 ibuprofen Allergy NOT SURE Verified 09/23/16 13:14 OF REACTION nitrofurantoin Allergy Verified 08/17/18 00:40 [From Macrobid] Medications: Current Medications Aspirin (Aspirin Chewable) 81 mg PO DAILY [facility] Last Admin: 08/19/18 09:42 Dose: 81 mg Bisacodyl (Dulcolax) 10 mg PO DAILYPRN PRN PRN Reason: Constipation Calcium Carbonate (Caltrate) 1,200 mg PO DAILY [facility] Last Admin: 08/19/18 09:45 Dose: 1,200 mg Cholecalciferol (Vitamin D) 800 units PO DAILY [facility] Last Admin: 08/19/18 09:43 Dose: 800 units Enoxaparin Sodium (Lovenox) 30 mg SC 0900 [facility] Last Admin: 08/19/18 09:49 Dose: 30 mg Famotidine (Pepcid) 20 mg SLOW IVP QAM [facility] Last Admin: 08/19/18 10:59 Dose: Not Given Famotidine (Pepcid) 20 mg PO QAM [facility] Last Admin: 08/19/18 10:59 Dose: Not Given Potassium Chloride/Sodium Chloride (Ns 0.9% W/ 40 Meq Kcl) 1,000 mls @ 100 mls/ hr IV .Q10H [facility] Last Admin: 08/18/18 23:56 Dose: 1,000 mls Loperamide HCl (Imodium) 2 mg PO ASDIR PRN PRN Reason: Diarrhea/Loose Stools Magnesium Oxide (Magnesium Oxide) 400 mg PO DAILY [facility] Nebivolol (Bystolic) 20 mg PO DAILY [facility] Last Admin: 08/19/18 09:42 Dose: 20 mg Ondansetron HCl (Zofran Odt) 4 mg PO Q6H PRN PRN Reason: Nausea/Vomiting Ondansetron HCl (Zofran) 4 mg IVP Q6H PRN PRN Reason: Nausea/Vomiting Last Admin: 08/17/18 20:22 Dose: 4 mg Pantoprazole Sodium (Protonix) 40 mg PO DAILY [facility] Last Admin: 08/19/18 09:48 Dose: 40 mg Senna/Docusate Sodium (Senokot S) 2 tab PO BID PRN PRN Reason: Constipation Sodium Chloride (Flush - Normal Saline) 10 ml IVF Q12HR [facility] Last Admin: 08/19/18 09:51 Dose: 10 ml Sodium Chloride (Flush - Normal Saline) 10 ml IVF PRN PRN PRN Reason: Saline Flush Tramadol HCl (Ultram) 50 mg PO TID PRN PRN Reason: Mild-Moderate Pain (1-5) Last Admin: 08/19/18 04:46 Dose: 50 mg
[2018-08-19] MEDS: NS 0.9% w/ 40 MEQ KCL 1,000 ML IV SCH (14:24)
[2018-08-20] MEDS: NS 0.9% w/ 40 MEQ KCL 1,000 ML IV SCH (00:32)
[2018-08-20] MEDS ORDERED: hydrALAZINE 20 MG/ML VIAL SLOW IVP PRN (05:32)
[2018-08-20 07:31] LABS: Anion Gap 11 mmol/L (10-20); BUN (Urea Nitrogen) 21 mg/dL (9.8-20.1); Calc. Creatinine Clearance 48 mL/min (70-130); Calcium 9.1 mg/dL (7.8-10.44); Carbon Dioxide 14 mmol/L (23-31); Chloride 118 mmol/L (98-107); Estimated GFR-MDRD 48; Glucose 106 mg/dL (83-110); Potassium 4.3 mmol/L (3.5-5.1); Sodium 139 mmol/L (136-145)
[2018-08-20 08:00] LABS: #Basophils 0.1 thou/uL (0.0-0.2); #Eosinphils 0.2 thou/uL (0.0-0.7); #Neutrophils 10.5 thou/uL (1.40-6.50); %Basophils 0.4 % (0.0-1.0); %Eosinophils 1.4 % (0.0-10.0); %Lymphocytes 13.5 % (21.0-51.0); %Monocytes 13.5 % (0.0-10.0); %Neutrophils 71.2 % (42.0-75.0); Hemoglobin 11.4 g/dL (12.0-16.0); Mean Corpuscular HGB CONC 32.7 g/dL (32.0-36.0); Mean Corpuscular Hemoglobin 29.5 pg (27.0-31.0); Mean Corpuscular Volume 90.4 fL (78.0-98.0); Mean Platelet Volume 8.2 fL (7.4-10.4); Platelet Count 187 thou/uL (130-400); RBC Distribution Width 12.4 % (11.5-14.5); Red Blood Cell (RBC) Count 3.85 mill/uL (4.20-5.40); White Blood Cell (WBC) Count 14.8 thou/uL (4.8-10.8)
[2018-08-20] MEDS: Bisacodyl 5 MG TAB PO PRN (08:46)
[2018-08-20] MEDS: Cholecalciferol (Vitamin D3) 400 UNITS TAB PO SCH (08:46)
[2018-08-20] MEDS: Amlodipine 10 MG TAB PO SCH (08:46)
[2018-08-20] MEDS: Magnesium Oxide 400 MG TAB PO SCH (08:47)
[2018-08-20] MEDS: Calcium Carbonate 600 MG TAB PO SCH (08:47)
[2018-08-20] MEDS: Nebivolol HCl 5 MG TAB PO SCH (08:47)
[2018-08-20] MEDS: Enoxaparin Sodium 30 MG/0.3 ML SYRINGE SC SCH (08:48)
--- NOTE | 2018-08-20 09:34 | RAD ---
CHEST ONE VIEW: INDICATIONS: Respiratory distress. COMPARISON: 08/16/2018 FINDINGS/IMPRESSION: There is cardiomegaly, pulmonary vascular congestion, and left infrahilar air space opacity. There i s a small right pleural effusion. The left costophrenic angle is excluded. No pneumothorax is evide nt. Overall findings are suspicious for CHF. There is air space opacity in the left lower lobe, which co uld be related to a component of pneumonia. Recommend radiographic followup. POS: NILESH
[2018-08-20 10:43] LABS: Phosphorus 1.5 mg/dL (2.3-4.7)
[2018-08-20] MEDS ORDERED: Furosemide 20 MG/2 ML VIAL SLOW IVP SCH (11:30)
[2018-08-20] MEDS: Piperacillin/Tazobactam 4.5 GM in Sodium Chloride 0.9% 100 ML IVPB SCH ×2 (12:16→20:09)
--- NOTE | 2018-08-20 12:27 | PDOC.PN ---
- Subjective Encounter Start Date: 08/20/18 Encounter Start Time: 07:20 Pt seen for followup re: pneumonia. Has shortness of breath, cough. Low-grade fevers. No nausea or vomiting. No diarrhea. - Objective Resuscitation Status - Order Detail: 08/16/18 23:09 Resuscitation Status Routine Resuscitation Status: FULL: Full Resuscitation MAR Reviewed: Yes Vital Signs & Weight: Vital Signs (12 hours) Temp Pulse Resp BP BP Pulse Ox 08/20/18 08:46 63 190/74 H 08/20/18 08:35 99.1 F 63 20 190/74 H 97 08/20/18 04:50 72 20 180/79 H 96 08/20/18 04:19 71 20 99 08/20/18 04:00 98.9 F Weight Admit Weight 176 lb Weight 185 lb 12.8 oz I&O: 08/19/18 08/20/18 08/21/18 06:59 06:59 06:59 Intake Total 2580 3393 Output Total 650 1900 Balance 1930 1493 Result Diagrams: 08/20/18 06:06 08/20/18 06:06 EKG Reviewed by me: Yes (Tele: NSR) Phys Exam - Physical Examination Constitutional: NAD HEENT: moist MMs Neck: supple Bibasal crackles Cardiovascular: RRR Gastrointestinal: positive bowel sounds Neurological: moves all 4 limbs Psychiatric: normal affect Dx/Plan (1) Pneumonia Code(s): J18.9 - PNEUMONIA, UNSPECIFIED ORGANISM Status: Acute Comment: start pt on empiric antibiotics, await cultures (2) Physical deconditioning Code(s): R53.81 - OTHER MALAISE Status: Acute Comment: rehab eval pending (3) Essential (primary) hypertension Code(s): I10 - ESSENTIAL (PRIMARY) HYPERTENSION Status: Chronic Comment: amlodipine started (4) Diarrhea Code(s): R19.7 - DIARRHEA, UNSPECIFIED Status: Resolved (5) Hypokalemia Code(s): E87.6 - HYPOKALEMIA Status: Resolved (6) BA (acute kidney injury) Code(s): N17.9 - ACUTE KIDNEY FAILURE, UNSPECIFIED Status: Resolved - Plan * . urinalysis to r/o UTI Furosemide for possible volume overload Replace phosphorus Review of Systems - Review of Systems Constitutional: fever Respiratory: Cough, Dry. negative: Shortness of Breath, Hemoptysis, SOB with Excertion, Pleuritic Pain, Sputum, Wheezing Cardiovascular: negative: chest pain, palpitations, orthopnea, paroxysmal nocturnal dyspnea, edema, light headedness - Medications/Allergies Allergies/Adverse Reactions: Allergies Allergy/AdvReac Type Severity Reaction Status Date / Time cefazolin [From Ancef] Allergy Intermediate Rash Verified 09/23/16 13:53 ibuprofen Allergy NOT SURE Verified 09/23/16 13:14 OF REACTION nitrofurantoin Allergy Verified 08/17/18 00:40 [From Macrobid] Medications: Current Medications Albuterol/Ipratropium (Duoneb) 3 ml NEB Q4H PRN PRN Reason: SOB &/or Wheezing Last Admin: 08/20/18 04:19 Dose: 3 ml Amlodipine Besylate (Norvasc) 10 mg PO DAILY [facility] Last Admin: 08/20/18 08:46 Dose: 10 mg Aspirin (Aspirin Chewable) 81 mg PO DAILY [facility] Last Admin: 08/20/18 08:46 Dose: 81 mg Bisacodyl (Dulcolax) 10 mg PO DAILYPRN PRN PRN Reason: Constipation Last Admin: 08/20/18 08:46 Dose: 10 mg Calcium Carbonate (Caltrate) 1,200 mg PO DAILY [facility] Last Admin: 08/20/18 08:47 Dose: 1,200 mg Cholecalciferol (Vitamin D) 800 units PO DAILY [facility] Last Admin: 08/20/18 08:46 Dose: 800 units Enoxaparin Sodium (Lovenox) 30 mg SC 0900 [facility] Last Admin: 08/20/18 08:48 Dose: 30 mg Furosemide (Lasix) 20 mg SLOW IVP 1130 [facility] Stop: 08/20/18 13:30 Last Admin: 08/20/18 12:10 Dose: 20 mg Hydralazine HCl (Apresoline) 10 mg SLOW IVP Q4H PRN PRN Reason: SBP > 180 Piperacillin Sod/Tazobactam (Sod 4.5 gm/ Sodium Chloride) 100 mls @ 200 mls/hr IVPB 0400,1200,2000 [facility] Last Admin: 08/20/18 12:16 Dose: 100 mls Loperamide HCl (Imodium) 2 mg PO ASDIR PRN PRN Reason: Diarrhea/Loose Stools Magnesium Oxide (Magnesium Oxide) 400 mg PO DAILY [facility] Last Admin: 08/20/18 08:47 Dose: 400 mg Miscellaneous Medication (Phos-Nak) 1 pkt PO DAILY [facility] Nebivolol (Bystolic) 20 mg PO DAILY [facility] Last Admin: 08/20/18 08:47 Dose: 20 mg Ondansetron HCl (Zofran Odt) 4 mg PO Q6H PRN PRN Reason: Nausea/Vomiting Ondansetron HCl (Zofran) 4 mg IVP Q6H PRN PRN Reason: Nausea/Vomiting Last Admin: 08/17/18 20:22 Dose: 4 mg Pantoprazole Sodium (Protonix) 40 mg PO DAILY [facility] Last Admin: 08/20/18 08:46 Dose: 40 mg Phosphorus (Kphos Neutral) 250 mg PO BID [facility] Stop: 08/22/18 21:01 Phosphorus (Kphos Neutral) 250 mg PO 1230 [facility] Stop: 08/20/18 14:30 Senna/Docusate Sodium (Senokot S) 2 tab PO BID PRN PRN Reason: Constipation Sodium Chloride (Flush - Normal Saline) 10 ml IVF Q12HR [facility] Last Admin: 08/20/18 08:48 Dose: 10 ml Sodium Chloride (Flush - Normal Saline) 10 ml IVF PRN PRN PRN Reason: Saline Flush Last Admin: 08/20/18 12:11 Dose: 10 ml Tramadol HCl (Ultram) 50 mg PO TID PRN PRN Reason: Mild-Moderate Pain (1-5) Last Admin: 08/19/18 22:59 Dose: 50 mg
[2018-08-20] MEDS ORDERED: K-Phos Neutral 250 MG TAB PO SCH ×2 (12:30→21:00)
[2018-08-20 14:09] LABS: Bilirubin Negative (Negative); Blood, Urine Negative (Negative); Clarity CLEAR (Clear); Glucose, Urine (Dipstick) Negative (Negative); Leukocyte Negative (Negative); Nitrite Negative (Negative); Protein, Urine (Dipstick) Negative (Neg-Trace); Specific Gravity, Urine 1.005 (1.002-1.036); Urobilinogen 0.2 mg/dL (0.2-1.0)
[2018-08-20] MEDS ORDERED: Promethazine HCl 25 MG in Sodium Chloride 0.9% 50 ML IVPB PRN (15:22)
[2018-08-20] MEDS: hydrALAZINE 25 MG TAB PO SCH ×2 (15:41→20:09)
[2018-08-20] MEDS: Sodium Bicarbonate Tab 325 MG TAB PO SCH (20:10)
[2018-08-20] MEDS: traMADol HCl 50 MG TAB PO PRN (20:11)
[2018-08-21] MEDS: Piperacillin/Tazobactam 4.5 GM in Sodium Chloride 0.9% 100 ML IVPB SCH ×3 (05:46→20:59)
[2018-08-21 06:34] LABS: Hemoglobin 11.1 g/dL (12.0-16.0); Mean Corpuscular HGB CONC 33.8 g/dL (32.0-36.0); Mean Corpuscular Hemoglobin 29.6 pg (27.0-31.0); Mean Corpuscular Volume 87.5 fL (78.0-98.0); Mean Platelet Volume 8.1 fL (7.4-10.4); Platelet Count 174 thou/uL (130-400); RBC Distribution Width 12.1 % (11.5-14.5); Red Blood Cell (RBC) Count 3.75 mill/uL (4.20-5.40); White Blood Cell (WBC) Count 11.3 thou/uL (4.8-10.8)
[2018-08-21 06:54] LABS: Band 4 % (5-11); Eosinophils 1 % (0-10); Lymphocytes 23 % (21-51); MDiff Complete? YES; Monocytes 17 % (0-10); Myelocyte 1 % (0-0); Neutrophil 54 % (42-75); PLT Morphology Comment Appears Adequate
[2018-08-21 07:07] LABS: Anion Gap 10 mmol/L (10-20); BUN (Urea Nitrogen) 19 mg/dL (9.8-20.1); Calc. Creatinine Clearance 48 mL/min (70-130); Calcium 8.8 mg/dL (7.8-10.44); Carbon Dioxide 23 mmol/L (23-31); Chloride 108 mmol/L (98-107); Estimated GFR-MDRD 47; Glucose 96 mg/dL (83-110); Potassium 3.2 mmol/L (3.5-5.1); Sodium 138 mmol/L (136-145)
[2018-08-21 07:14] LABS: Phosphorus 1.6 mg/dL (2.3-4.7)
--- NOTE | 2018-08-21 07:49 | PRG ---
DATE OF SERVICE: 08/20/2018 SUBJECTIVE: Ms. Huitron is an 83-year-old white female, who was seen by the Renal Service for acute kidney injury. At that time, we felt this was a hemodynamically mediated renal dysfunction. The patient was given IV volume repletion with improvement of the renal function. However, she has developed some decreased mentation in the last day or so. In addition, she had some mild shortness of breath. A chest x-ray was done this morning and it showed suspicious findings of CHF. There is also an opacity in the left lower lobe, which may suggest a pneumonia. I was also called due to the low phosphorus. We are currently going to replace this low phosphorus. Otherwise, the patient is relatively unchanged overall from a renal point of view. As a matter of fact, renal function slowly continues to improve. OBJECTIVE: VITAL SIGNS: Blood pressure 190/74, heart rate 63, respiratory rate 20, temperature 99.1, pulse ox 97%. GENERAL: The patient is sleeping, but arousable. Not in distress. SKIN: Adequate turgor. HEENT: Pinkish conjunctivae. Anicteric sclerae. NECK: No neck mass. No carotid bruits. No JVD. CHEST: No deformities. LUNGS: Decreased breath sounds. HEART: Normal sinus rhythm. No murmurs. No gallops. No rubs. ABDOMEN: Globular, soft, nontender. No masses. EXTREMITIES: No edema. No deformities. MEDICATIONS: Medications of August 20, 2018, was reviewed. LABORATORY DATA: Laboratories of August 20, 2018, white count 14.8, hemoglobin 11.4. Sodium 139, potassium 4.3, chloride 118, carbon dioxide 14, BUN is 21, creatinine 1.09 with a GFR 48 mL/minute, phosphorus is 1.5. BNP is 1066. Chest x-ray shows increased lung markings/? of pneumonic infiltrate. ASSESSMENT AND PLAN: 1. Acute kidney injury-hemodynamically mediated renal dysfunction. Much improved renal function. Creatinine 1.09, is nearly approaching near normal baseline. Currently, IV fluid is on hold due to the development of new-onset congestive heart failure. 2. Shortness of breath-chest x-ray suggests congestive heart failure and/or pneumonia. Lasix had been given. In addition, the patient is being empirically treated with IV antibiotics. 3. Hypophosphatemia-we will start the patient on Neutra-Phos. 4. Hypertension. Blood pressure is now higher. The patient has been started on p.r.n. IV hydralazine. I would suggest we also add hydralazine 25 mg tablet t.i.d. 5. Hypokalemia-resolved. 6. We will check baseline CBC and phosphorus in a.m. Job ID: [id number]
[2018-08-21] MEDS: Enoxaparin Sodium 30 MG/0.3 ML SYRINGE SC SCH (09:15)
[2018-08-21] MEDS: Sodium Bicarbonate Tab 325 MG TAB PO SCH ×2 (09:18→20:59)
[2018-08-21] MEDS: Nebivolol HCl 5 MG TAB PO SCH (09:20)
[2018-08-21] MEDS: Amlodipine 10 MG TAB PO SCH (09:21)
[2018-08-21] MEDS: hydrALAZINE 25 MG TAB PO SCH ×3 (09:21→20:58)
[2018-08-21] MEDS: Calcium Carbonate 600 MG TAB PO SCH (09:21)
[2018-08-21] MEDS: Cholecalciferol (Vitamin D3) 400 UNITS TAB PO SCH (09:23)
[2018-08-21] MEDS: Magnesium Oxide 400 MG TAB PO SCH (09:31)
--- NOTE | 2018-08-21 10:09 | PRG ---
DATE OF SERVICE: 08/21/2018 SUBJECTIVE: Ms. Huitron is an 83-year-old white female, who was seen for her acute kidney injury. She was given volume repletion with improvement of renal function. Her losartan and Tekturna have been placed on hold. In the interim, I have restarted her on hydralazine. She was also noted to be hypokalemic and hypophosphatemic. Potassium and phosphorus supplementation have been given. No new complaints today. She is more awake and alert today. OBJECTIVE: VITAL SIGNS: Blood pressure 170/70, heart rate 61, respiratory rate 20, temperature 98.8, and pulse ox 95%. GENERAL: Noted to be awake, supine, comfortable, not in distress. SKIN: Adequate turgor. HEENT: She has pinkish conjunctivae. Anicteric sclerae. No neck mass. No carotid bruits. No JVD. CHEST: No deformities. LUNGS: Clear breath sounds. No wheezing. No crackles. HEART: Normal sinus rhythm. No murmurs. No gallops. No rubs. ABDOMEN: Globular, soft, and nontender. No masses. EXTREMITIES: No edema. No deformities. MEDICATIONS: Medications of August 21, 2018, was reviewed. LABORATORY DATA: Laboratories of August 21, 2018, white count 11.3, hemoglobin 11.1. Sodium 138, potassium 3.2, chloride 108, carbon dioxide 23, BUN 19, creatinine 1.11, glucose 96, phosphorus level 1.6, calcium 8.8. BNP 1066. ASSESSMENT AND PLAN: 1. Shortness of breath, much improved after one dose of Lasix. 2. Acute kidney injury, much improved. Continue current supportive care. IV fluids due to the mild volume overload in the last few days. 3. Hypophosphatemia, currently on phosphorus supplementation. Adjust as needed. 4. Hypokalemia. K-Dur 40 mEq one tablet once a day was started. Job ID: [id number]
[2018-08-21] MEDS: Bisacodyl 5 MG TAB PO PRN (11:57)
--- NOTE | 2018-08-21 12:10 | PDOC.PN ---
- Subjective Encounter Start Date: 08/21/18 Encounter Start Time: 07:00 Pt seen for followup re: pneumonia. Feels better. Minimal cough. No nausea or vomiting. - Objective Resuscitation Status - Order Detail: 08/16/18 23:09 Resuscitation Status Routine Resuscitation Status: FULL: Full Resuscitation MAR Reviewed: Yes Vital Signs & Weight: Vital Signs (12 hours) Temp Pulse Resp BP Pulse Ox 08/21/18 07:55 98.8 F 61 20 170/70 H 95 08/21/18 04:00 97.9 F 64 20 138/65 93 L Weight Admit Weight 176 lb Weight 182 lb 1.6 oz I&O: 08/20/18 08/21/18 08/22/18 06:59 06:59 06:59 Intake Total 3393 1410 Output Total 1900 3675 Balance 1493 -2265 Result Diagrams: 08/22/18 07:06 08/22/18 07:06 EKG Reviewed by me: Yes (Tele: NSR) Phys Exam - Physical Examination Constitutional: NAD HEENT: moist MMs Neck: supple Bibasal crackles Cardiovascular: RRR Gastrointestinal: soft Neurological: moves all 4 limbs Psychiatric: normal affect Dx/Plan (1) Pneumonia Code(s): J18.9 - PNEUMONIA, UNSPECIFIED ORGANISM Status: Acute Comment: leucocytosis improved, continue IV Zosyn and levofloxacin. (2) Volume overload Code(s): E87.70 - FLUID OVERLOAD, UNSPECIFIED Status: Acute Comment: Improving, continue IV furosemide (3) Physical deconditioning Code(s): R53.81 - OTHER MALAISE Status: Acute Comment: rehab eval on hold (4) Essential (primary) hypertension Code(s): I10 - ESSENTIAL (PRIMARY) HYPERTENSION Status: Chronic Comment: continue amlodipine, add hydralazine (5) Diarrhea Code(s): R19.7 - DIARRHEA, UNSPECIFIED Status: Resolved (6) Hypokalemia Code(s): E87.6 - HYPOKALEMIA Status: Resolved (7) BA (acute kidney injury) Code(s): N17.9 - ACUTE KIDNEY FAILURE, UNSPECIFIED Status: Resolved - Plan * . Possible Review of Systems - Review of Systems Respiratory: Cough. negative: Shortness of Breath, SOB with Excertion, Pleuritic Pain, Wheezing Cardiovascular: other. negative: chest pain, palpitations, orthopnea, paroxysmal nocturnal dyspnea, edema, light headedness - Medications/Allergies Allergies/Adverse Reactions: Allergies Allergy/AdvReac Type Severity Reaction Status Date / Time cefazolin [From Ancef] Allergy Intermediate Rash Verified 09/23/16 13:53 ibuprofen Allergy NOT SURE Verified 09/23/16 13:14 OF REACTION nitrofurantoin Allergy Verified 08/17/18 00:40 [From Macrobid] Medications: Current Medications Albuterol/Ipratropium (Duoneb) 3 ml NEB Q4H PRN PRN Reason: SOB &/or Wheezing Last Admin: 08/20/18 04:19 Dose: 3 ml Amlodipine Besylate (Norvasc) 10 mg PO DAILY [facility] Last Admin: 08/21/18 09:21 Dose: 10 mg Aspirin (Aspirin Chewable) 81 mg PO DAILY [facility] Last Admin: 08/21/18 09:21 Dose: 81 mg Bisacodyl (Dulcolax) 10 mg PO DAILYPRN PRN PRN Reason: Constipation Last Admin: 08/21/18 11:57 Dose: 10 mg Calcium Carbonate (Caltrate) 1,200 mg PO DAILY [facility] Last Admin: 08/21/18 09:21 Dose: 1,200 mg Cholecalciferol (Vitamin D) 800 units PO DAILY [facility] Last Admin: 08/21/18 09:23 Dose: 800 units Enoxaparin Sodium (Lovenox) 30 mg SC 0900 [facility] Last Admin: 08/21/18 09:15 Dose: 30 mg Furosemide (Lasix) 20 mg SLOW IVP DAILY [facility] Furosemide (Lasix) 20 mg SLOW IVP NOW [facility] Stop: 08/21/18 14:15 Hydralazine HCl (Apresoline) 10 mg SLOW IVP Q4H PRN PRN Reason: SBP > 180 Hydralazine HCl (Apresoline) 25 mg PO TID [facility] Last Admin: 08/21/18 09:21 Dose: 25 mg Piperacillin Sod/Tazobactam (Sod 4.5 gm/ Sodium Chloride) 100 mls @ 200 mls/hr IVPB 0400,1200,2000 [facility] Last Admin: 08/21/18 11:57 Dose: 100 mls Levofloxacin 750 mg/ Device 150 mls @ 100 mls/hr IVPB Q24HR [facility] Last Admin: 08/20/18 13:00 Dose: 150 mls Promethazine HCl 25 mg/ Sodium (Chloride) 51 mls @ 306 mls/hr IVPB Q6H PRN PRN Reason: Nausea Loperamide HCl (Imodium) 2 mg PO ASDIR PRN PRN Reason: Diarrhea/Loose Stools Magnesium Oxide (Magnesium Oxide) 400 mg PO DAILY [facility] Last Admin: 08/21/18 09:31 Dose: 400 mg Miscellaneous Medication (Phos-Nak) 1 pkt PO BID [facility] Nebivolol (Bystolic) 20 mg PO DAILY [facility] Last Admin: 08/21/18 09:20 Dose: 20 mg Pantoprazole Sodium (Protonix) 40 mg PO DAILY [facility] Last Admin: 08/21/18 09:21 Dose: 40 mg Potassium Chloride (K-Dur) 40 meq PO QA[facility] Senna/Docusate Sodium (Senokot S) 2 tab PO BID PRN PRN Reason: Constipation Sodium Bicarbonate (Bicarbonate, Sodium) 650 mg PO BID [facility] Last Admin: 08/21/18 09:18 Dose: 650 mg Sodium Chloride (Flush - Normal Saline) 10 ml IVF Q12HR [facility] Last Admin: 08/21/18 09:23 Dose: 10 ml Sodium Chloride (Flush - Normal Saline) 10 ml IVF PRN PRN PRN Reason: Saline Flush Last Admin: 08/20/18 12:11 Dose: 10 ml Tramadol HCl (Ultram) 50 mg PO TID PRN PRN Reason: Mild-Moderate Pain (1-5) Last Admin: 08/20/18 20:11 Dose: 50 mg
[2018-08-21] MEDS ORDERED: Furosemide 20 MG/2 ML VIAL SLOW IVP SCH (12:15)
[2018-08-21] MEDS ORDERED: ALPRAZolam 0.25 MG TAB PO SCH (17:30)
[2018-08-21] MEDS: traMADol HCl 50 MG TAB PO PRN (21:08)
--- NOTE | 2018-08-22 03:08 | CON ---
DATE OF CONSULTATION: HISTORY OF PRESENT ILLNESS: Tracee Huitron is an 83-year-old white female, who I initially evaluated in July 1995. She had a previous history of rare ventricular and supraventricular ectopic beats on Holter as well as a 5-beat run of supraventricular tachycardia at 195 per minute. In July 1995, she underwent gynecological surgery and under general anesthesia developed a hypertensive episode with blood pressure increasing to 160 systolic. She was given labetalol intravenously and nitroglycerin paste was placed. She developed deeply inverted T-waves, which was new from preoperative EKG. With that finding, she underwent cardiac catheterization, which revealed normal left ventricular function of 60% and normal coronary arteries. I did not see her again until September 2006 when she was referred for complaints of dyspnea on exertion. She also noticed a slight tightness in her chest and a feeling of her heart fluttering. This would always be associated with exertion. With rest, this would resolve in 5 to 10 minutes. She underwent Adenosine Cardiolite testing, which revealed no evidence of ischemia. She also had a Cardiolite scan in November 2011, which was probably normal. The last time I saw her was in December 2011. She now is admitted with dysuria and possible urinary retention. She was on antibiotics at home for urinary tract infection. The [id number] states that her blood pressure had been low and she had not had Bystolic for 4 to 5 days prior to admission. Ms. Huitron denies ever having any rapid heartbeat. She presented to the [facility] Emergency Room with complaints of dysuria and possible urinary retention. She was found to have a potassium of 2.9, BUN 41, creatinine 1.89. Apparently when she was on the monitor, she had an episode of flatline and was unresponsive, although none of that is documented. She has not had any significant bradycardia or pauses since being here. She has had episode of atrial tachycardia. Ms. Huitron denies ever having any chest discomfort or feeling of palpitations. PAST MEDICAL HISTORY: Hypertension, history of breast cancer status post chemotherapy and surgery, peripheral neuropathy, transient ischemic attack, and nephrolithiasis. MEDICATIONS: At home include; 1. Tekturna one tablet daily (has been discontinued). 2. Aspirin 81 daily. 3. Calcium 1200 mg daily. 4. Losartan 100 daily. 5. Bystolic 20 daily. 6. Omeprazole 40 daily. 7. Tramadol 50 t.i.d. ALLERGIES: ANCEF, IBUPROFEN, AND MACROBID. OPERATIONS: Tonsillectomy, hysterectomy, mastectomy of the right breast, vein stripping in the right leg, left mastectomy, and bladder suspension. SOCIAL HISTORY: She does not smoke or drink. FAMILY HISTORY: Brother had CABG. REVIEW OF SYSTEMS: A 12-point review of systems is otherwise unremarkable. PHYSICAL EXAMINATION: VITAL SIGNS: Blood pressure 145/67, pulse 61. HEENT: PERRL. NECK: Supple. CHEST: Clear. CARDIAC: S1 and S2 normal without any S3, S4, or murmurs. ABDOMEN: Normal bowel sounds without tenderness or organomegaly. EXTREMITIES: Revealed trace to 1+ pretibial edema. NEUROLOGIC: Grossly intact. SKIN: Warm and dry. LABORATORY DATA: She did have episodes yesterday on the monitor of paroxysmal atrial tachycardia with rates in the 150s to 160s. EKG revealed normal sinus rhythm with left axis deviation, incomplete right bundle-branch block, nonspecific ST and T-wave changes. With hydration, her potassium has gone from 2.9 to 2.6 to 4.3. BUN has gone from 41 up to 19, and creatinine from 1.98 down to 1.11. IMPRESSION: 1. Paroxysmal atrial tachycardia. This certainly could be due to beta kin withdrawal since it appears that she did not have the beta kin for 4 days prior to admission. I did check with pharmacy and she has received the Bystolic 20 mg at bedtime every day she has been in the hospital. These arrhythmias occurred 3 or 4 days after she restarted the Bystolic. We will continue to observe these and if we do see recurrence, then digoxin will need to be added. 2. Probable diastolic heart failure with peripheral edema at this time. 3. Hypertension. 4. Recurrent urinary tract infections. 5. Acute on chronic renal failure, improved. 6. Hypokalemia, which may have been the cause of some of her rhythms at [facility] Emergency Room. 7. Lactic acidosis. 8. Leukocytosis. PLAN: The patient continued to be observed on the Bystolic. If she does have recurrence, then digoxin will need to be added. Echocardiogram will be performed. Job ID: [id number] [facility]
[2018-08-22] MEDS: Piperacillin/Tazobactam 4.5 GM in Sodium Chloride 0.9% 100 ML IVPB SCH ×3 (04:09→20:57)
[2018-08-22 07:32] LABS: #Basophils 0.1 thou/uL (0.0-0.2); #Eosinphils 0.5 thou/uL (0.0-0.7); #Lymphocytes 2.3 thou/uL (1.20-3.40); #Monocytes 1.5 thou/uL (0.11-0.59); #Neutrophils 6.8 thou/uL (1.40-6.50); %Basophils 0.7 % (0.0-1.0); %Eosinophils 4.2 % (0.0-10.0); %Lymphocytes 20.7 % (21.0-51.0); %Monocytes 13.2 % (0.0-10.0); %Neutrophils 61.2 % (42.0-75.0); Hemoglobin 11.8 g/dL (12.0-16.0); Mean Corpuscular HGB CONC 33.8 g/dL (32.0-36.0); Mean Corpuscular Hemoglobin 29.7 pg (27.0-31.0); Mean Corpuscular Volume 87.8 fL (78.0-98.0); Mean Platelet Volume 7.8 fL (7.4-10.4); Platelet Count 191 thou/uL (130-400); RBC Distribution Width 12.1 % (11.5-14.5); Red Blood Cell (RBC) Count 3.98 mill/uL (4.20-5.40); White Blood Cell (WBC) Count 11.1 thou/uL (4.8-10.8)
[2018-08-22 07:45] LABS: Anion Gap 11 mmol/L (10-20); BUN (Urea Nitrogen) 17 mg/dL (9.8-20.1); Calc. Creatinine Clearance 46 mL/min (70-130); Carbon Dioxide 27 mmol/L (23-31); Chloride 103 mmol/L (98-107); Estimated GFR-MDRD 44; Glucose 92 mg/dL (83-110); Sodium 138 mmol/L (136-145)
[2018-08-22 07:51] LABS: Phosphorus 1.8 mg/dL (2.3-4.7); Potassium 2.7 mmol/L (3.5-5.1)
[2018-08-22] MEDS ORDERED: Magnesium 2 GM/50 ML 2 GM in Premix Bag 1 BAG IVPB SCH (08:45)
[2018-08-22] MEDS: Amlodipine 10 MG TAB PO SCH (09:54)
[2018-08-22] MEDS: Potassium Chloride 20 MEQ TAB PO SCH (09:54)
[2018-08-22] MEDS: Calcium Carbonate 600 MG TAB PO SCH (09:55)
[2018-08-22] MEDS: Cholecalciferol (Vitamin D3) 400 UNITS TAB PO SCH (09:55)
[2018-08-22] MEDS: hydrALAZINE 25 MG TAB PO SCH ×3 (09:56→20:58)
[2018-08-22] MEDS: Enoxaparin Sodium 30 MG/0.3 ML SYRINGE SC SCH (09:56)
[2018-08-22] MEDS: Furosemide 20 MG/2 ML VIAL SLOW IVP SCH (09:56)
[2018-08-22] MEDS: Nebivolol HCl 5 MG TAB PO SCH (09:57)
[2018-08-22] MEDS: Magnesium Oxide 400 MG TAB PO SCH (09:57)
[2018-08-22] MEDS: Sodium Bicarbonate Tab 325 MG TAB PO SCH ×2 (09:58→20:58)
--- NOTE | 2018-08-22 10:28 | PRG ---
DATE OF SERVICE: 08/22/2018 SUBJECTIVE: Ms. Huitron is an 83-year-old white female, being followed by Renal Service for acute kidney injury secondary to hemodynamically mediated renal dysfunction. She was given volume repletion. However, she went into the CHF. She has been getting Lasix for the last two days. Cardiology has been consulted. Cardiac echo has been done. It showed an EF of 55% to 60%. Please note, the patient has been restarted on her Bystolic. No other complaints today. The patient was noted to be hypokalemic and hypomagnesemic today. Correction is currently being done. The patient denies any chest pain or shortness of breath. PHYSICAL EXAMINATION: VITAL SIGNS: Blood pressure is noted at 139/65, heart rate 54, respiratory rate 15, temperature 97.9, and pulse ox 95%. GENERAL: The patient is awake, alert, comfortable, not in overt distress. SKIN: Adequate turgor. HEENT: She has pinkish conjunctivae. Anicteric sclerae. NECK: No neck mass. No carotid bruits. No JVD. CHEST: No deformities. LUNGS: Clear breath sounds. HEART: Normal sinus rhythm. No murmur. No gallops. No rubs. ABDOMEN: Globular, soft, and nontender. No masses. EXTREMITIES: No edema. MEDICATIONS: Medications of August 22, 2018 was reviewed. LABORATORY DATA: Laboratories of August 22, 2018, white count 11.1 and hemoglobin 11.8. Sodium 138, potassium 2.7, chloride 103, carbon dioxide 27, with a BUN 17, creatinine 1.16, GFR 44 mL/minute, glucose 92, magnesium is 1.0, and phosphorus 1.8. ASSESSMENT AND PLAN: 1. Acute kidney injury - hemodynamically mediated renal dysfunction. Stable renal function. Creatinine is slightly high at 1.16 and this is I feel a reflection of the previous diureses/Lasix she received. Continue current management. No indication for any dialysis intervention. 2. Hypokalemia. PRN replacement. Currently on KCl 40 mEq 1 tablet once a day. 3. Hypomagnesemia - magnesium sulfate 2 g IV to be given today. 4. Hypophosphatemia, currently on phosphorus replacement therapy. 5. Congestive heart failure - most likely a diastolic dysfunction. Currently on a beta kin. PRN diuretics. Cardiology is following. Please note, EF is within normal. We will check chemistries again tomorrow. Job ID: [id number]
--- NOTE | 2018-08-22 10:52 | PDOC.PN ---
- Subjective Encounter Start Date: 08/22/18 Encounter Start Time: 07:00 Pt seen for followup re: pneumonia. Denies chest pain. Cough is better. Feels weak. - Objective Resuscitation Status - Order Detail: 08/16/18 23:09 Resuscitation Status Routine Resuscitation Status: FULL: Full Resuscitation MAR Reviewed: Yes Vital Signs & Weight: Vital Signs (12 hours) Temp Pulse Resp BP Pulse Ox 08/22/18 07:29 97.9 F 54 L 15 139/65 95 08/22/18 04:00 97.6 F 58 L 20 130/60 95 08/22/18 00:00 98.3 F 60 18 116/58 L 93 L Weight Admit Weight 176 lb Weight 181 lb 8 oz I&O: 08/21/18 08/22/18 08/23/18 06:59 06:59 06:59 Intake Total 1410 1840 Output Total 3675 3500 Balance -2265 -8920 Result Diagrams: 08/22/18 07:06 08/22/18 07:06 EKG Reviewed by me: Yes (Tele: NSR) Phys Exam - Physical Examination Constitutional: NAD HEENT: moist MMs Neck: supple Brandt crackles Cardiovascular: RRR Gastrointestinal: soft Neurological: moves all 4 limbs Psychiatric: normal affect Dx/Plan (1) Pneumonia Code(s): J18.9 - PNEUMONIA, UNSPECIFIED ORGANISM Status: Acute Comment: continue IV Zosyn and levofloxacin. (2) Volume overload Code(s): E87.70 - FLUID OVERLOAD, UNSPECIFIED Status: Acute Comment: continue IV furosemide (3) Physical deconditioning Code(s): R53.81 - OTHER MALAISE Status: Acute Comment: will likely need Inpt Rehab or SNU (4) Essential (primary) hypertension Code(s): I10 - ESSENTIAL (PRIMARY) HYPERTENSION Status: Chronic Comment: continue amlodipine and hydralazine (5) Diarrhea Code(s): R19.7 - DIARRHEA, UNSPECIFIED Status: Resolved (6) Hypokalemia Code(s): E87.6 - HYPOKALEMIA Status: Resolved (7) BA (acute kidney injury) Code(s): N17.9 - ACUTE KIDNEY FAILURE, UNSPECIFIED Status: Resolved (8) Diastolic congestive heart failure Code(s): I50.30 - UNSPECIFIED DIASTOLIC (CONGESTIVE) HEART FAILURE Status: Suspected Comment: continue diuretics - Plan * . Review of Systems - Review of Systems Respiratory: Cough, Dry. negative: Shortness of Breath, Hemoptysis, SOB with Excertion, Pleuritic Pain, Sputum, Wheezing Cardiovascular: negative: chest pain, palpitations, orthopnea, paroxysmal nocturnal dyspnea, edema, light headedness - Medications/Allergies Allergies/Adverse Reactions: Allergies Allergy/AdvReac Type Severity Reaction Status Date / Time cefazolin [From Ancef] Allergy Intermediate Rash Verified 09/23/16 13:53 ibuprofen Allergy NOT SURE Verified 09/23/16 13:14 OF REACTION nitrofurantoin Allergy Verified 08/17/18 00:40 [From Macrobid] Medications: Current Medications Albuterol/Ipratropium (Duoneb) 3 ml NEB Q4H PRN PRN Reason: SOB &/or Wheezing Last Admin: 08/20/18 04:19 Dose: 3 ml Amlodipine Besylate (Norvasc) 10 mg PO DAILY [facility] Last Admin: 08/22/18 09:54 Dose: 10 mg Aspirin (Aspirin Chewable) 81 mg PO DAILY [facility] Last Admin: 08/22/18 09:55 Dose: 81 mg Bisacodyl (Dulcolax) 10 mg PO DAILYPRN PRN PRN Reason: Constipation Last Admin: 08/21/18 11:57 Dose: 10 mg Calcium Carbonate (Caltrate) 1,200 mg PO DAILY [facility] Last Admin: 08/22/18 09:55 Dose: 1,200 mg Cholecalciferol (Vitamin D) 800 units PO DAILY [facility] Last Admin: 08/22/18 09:55 Dose: 800 units Enoxaparin Sodium (Lovenox) 30 mg SC 0900 [facility] Last Admin: 08/22/18 09:56 Dose: 30 mg Furosemide (Lasix) 20 mg SLOW IVP DAILY [facility] Last Admin: 08/22/18 09:56 Dose: 20 mg Hydralazine HCl (Apresoline) 10 mg SLOW IVP Q4H PRN PRN Reason: SBP > 180 Hydralazine HCl (Apresoline) 25 mg PO TID [facility] Last Admin: 08/22/18 09:56 Dose: 25 mg Piperacillin Sod/Tazobactam (Sod 4.5 gm/ Sodium Chloride) 100 mls @ 200 mls/hr IVPB 0400,1200,2000 [facility] Last Admin: 08/22/18 04:09 Dose: 100 mls Levofloxacin 750 mg/ Device 150 mls @ 100 mls/hr IVPB Q24HR [facility] Last Admin: 08/21/18 13:12 Dose: 150 mls Promethazine HCl 25 mg/ Sodium (Chloride) 51 mls @ 306 mls/hr IVPB Q6H PRN PRN Reason: Nausea Magnesium Sulfate 2 gm/ Device 50 mls @ 100 mls/hr IVPB 0845 [facility] Stop: 08/22/18 12:00 Last Admin: 08/22/18 09:55 Dose: 50 mls Loperamide HCl (Imodium) 2 mg PO ASDIR PRN PRN Reason: Diarrhea/Loose Stools Magnesium Oxide (Magnesium Oxide) 400 mg PO DAILY [facility] Last Admin: 08/22/18 09:57 Dose: 400 mg Miscellaneous Medication (Phos-Nak) 1 pkt PO BID [facility] Last Admin: 08/22/18 09:58 Dose: 1 pkt Nebivolol (Bystolic) 20 mg PO DAILY [facility] Last Admin: 08/22/18 09:57 Dose: 20 mg Pantoprazole Sodium (Protonix) 40 mg PO DAILY [facility] Last Admin: 08/22/18 09:57 Dose: 40 mg Potassium Chloride (K-Dur) 40 meq PO QAM-WM [facility] Last Admin: 08/22/18 09:54 Dose: 40 meq Potassium Chloride (K-Dur) 40 meq PO 1230 [facility] Stop: 08/22/18 14:30 Senna/Docusate Sodium (Senokot S) 2 tab PO BID PRN PRN Reason: Constipation Sodium Bicarbonate (Bicarbonate, Sodium) 650 mg PO BID [facility] Last Admin: 08/22/18 09:58 Dose: 650 mg Sodium Chloride (Flush - Normal Saline) 10 ml IVF Q12HR [facility] Last Admin: 08/22/18 09:59 Dose: 10 ml Sodium Chloride (Flush - Normal Saline) 10 ml IVF PRN PRN PRN Reason: Saline Flush Last Admin: 08/20/18 12:11 Dose: 10 ml Tramadol HCl (Ultram) 50 mg PO TID PRN PRN Reason: Mild-Moderate Pain (1-5) Last Admin: 08/21/18 21:08 Dose: 50 mg
[2018-08-22] MEDS ORDERED: Potassium Chloride 20 MEQ TAB PO SCH (12:30)
[2018-08-22] MEDS: traMADol HCl 50 MG TAB PO PRN (20:59)
[2018-08-23] MEDS: Piperacillin/Tazobactam 4.5 GM in Sodium Chloride 0.9% 100 ML IVPB SCH (05:17)
[2018-08-23 05:59] LABS: Anion Gap 10 mmol/L (10-20); BUN (Urea Nitrogen) 17 mg/dL (9.8-20.1); Calc. Creatinine Clearance 44 mL/min (70-130); Calcium 9.1 mg/dL (7.8-10.44); Carbon Dioxide 30 mmol/L (23-31); Chloride 104 mmol/L (98-107); Estimated GFR-MDRD 44; Glucose 97 mg/dL (83-110); Magnesium 1.3 mg/dL (1.6-2.6); Potassium 3.1 mmol/L (3.5-5.1); Sodium 141 mmol/L (136-145)
[2018-08-23] MEDS: Amlodipine 10 MG TAB PO SCH (08:14)
[2018-08-23] MEDS: Sodium Bicarbonate Tab 325 MG TAB PO SCH ×2 (08:14→21:05)
[2018-08-23] MEDS: Calcium Carbonate 600 MG TAB PO SCH (08:15)
[2018-08-23] MEDS: Potassium Chloride 20 MEQ TAB PO SCH (08:15)
[2018-08-23] MEDS: Magnesium Oxide 400 MG TAB PO SCH (08:15)
[2018-08-23] MEDS: Furosemide 20 MG/2 ML VIAL SLOW IVP SCH (08:15)
[2018-08-23] MEDS: hydrALAZINE 25 MG TAB PO SCH ×3 (08:15→21:05)
[2018-08-23] MEDS: Enoxaparin Sodium 30 MG/0.3 ML SYRINGE SC SCH (08:16)
[2018-08-23] MEDS: Cholecalciferol (Vitamin D3) 400 UNITS TAB PO SCH (08:16)
[2018-08-23] MEDS: Nebivolol HCl 5 MG TAB PO SCH (08:16)
[2018-08-23 09:29] LABS: #Basophils 0.1 thou/uL (0.0-0.2); #Eosinphils 0.4 thou/uL (0.0-0.7); #Lymphocytes 2.2 thou/uL (1.20-3.40); #Monocytes 1.4 thou/uL (0.11-0.59); #Neutrophils 7.7 thou/uL (1.40-6.50); %Basophils 0.4 % (0.0-1.0); %Eosinophils 3.6 % (0.0-10.0); %Lymphocytes 18.4 % (21.0-51.0); %Monocytes 12.1 % (0.0-10.0); %Neutrophils 65.4 % (42.0-75.0); Hemoglobin 12.8 g/dL (12.0-16.0); Mean Corpuscular HGB CONC 33.4 g/dL (32.0-36.0); Mean Corpuscular Hemoglobin 29.2 pg (27.0-31.0); Mean Corpuscular Volume 87.7 fL (78.0-98.0); Mean Platelet Volume 8.2 fL (7.4-10.4); Platelet Count 215 thou/uL (130-400); RBC Distribution Width 12.2 % (11.5-14.5); Red Blood Cell (RBC) Count 4.37 mill/uL (4.20-5.40); White Blood Cell (WBC) Count 11.7 thou/uL (4.8-10.8)
[2018-08-23] MEDS ORDERED: Magnesium 2 GM/50 ML 2 GM in Premix Bag 1 BAG IVPB SCH (09:30)
--- NOTE | 2018-08-23 10:25 | PRG ---
DATE OF SERVICE: 08/23/2018 SUBJECTIVE: Ms. Huitron is an 83-year-old white female, who was seen by the renal service for acute kidney injury. This was hemodynamically mediated, secondary to combination of volume depletion, use of losartan and Tekturna. She was IV hydrated and medications were stopped. This improved her renal function. However, during the hydration, she developed CHF. Cardiac echo showed a normal EF. She most likely has a diastolic dysfunction. She continues to be diuresed due to the shortness of breath. She also developed hypomagnesemia, hypophosphatemia, as well as hypokalemia. These are currently being corrected. OBJECTIVE: VITAL SIGNS: Blood pressure is 141/66, heart rate 56, respiratory rate 16, temperature 97.5, and pulse ox 95%. GENERAL: Awake, alert, comfortable, not in overt distress. SKIN: Adequate turgor. HEENT: Pinkish conjunctivae. Anicteric sclerae. NECK: No neck mass. No carotid bruits. No JVD. CHEST: No deformities. LUNGS: Clear breath sounds. HEART: Normal sinus rhythm. No murmurs, gallops, or rubs. ABDOMEN: Globular, soft, and nontender. No masses. EXTREMITIES: No edema. No deformities. MEDICATIONS: Medications of August 23, 2018, reviewed. LABORATORY DATA: Laboratories of August 23, 2018; sodium 141, potassium 3.1, chloride 104, carbon dioxide 30, BUN 17, creatinine 1.17, calcium 9.1, and magnesium is 1.3. ASSESSMENT AND PLAN: 1. Congestive heart failure - secondary to diastolic dysfunction. Continue diuretic regimen. The last cardiac echo showed normal EF. 2. Acute kidney injury is improved. Creatinine today slightly high and this may reflect the current diuretic regimen. 3. Hypomagnesemia. Currently, on magnesium tablet as well as supplement IV magnesium. 4. Hypophosphatemia. The patient is currently receiving Phos-NaK at 1 packet p.o. b.i.d. We will check phosphorus level. Agree with current management. Job ID: [id number]
--- NOTE | 2018-08-23 11:34 | PDOC.PN ---
- Subjective Encounter Start Date: 08/23/18 Encounter Start Time: 07:00 Pt seen for followup re: pneumonia. Feels weak. - Objective Resuscitation Status - Order Detail: 08/16/18 23:09 Resuscitation Status Routine Resuscitation Status: FULL: Full Resuscitation MAR Reviewed: Yes Vital Signs & Weight: Vital Signs (12 hours) Temp Pulse Resp BP Pulse Ox 08/23/18 11:26 98.4 F 63 16 139/65 08/23/18 08:14 67 08/23/18 08:00 95 08/23/18 07:22 97.5 F L 56 L 16 141/66 H 95 08/23/18 04:00 97.9 F 67 18 114/55 L 93 L Weight Admit Weight 176 lb Weight 174 lb I&O: 08/22/18 08/23/18 08/24/18 06:59 06:59 06:59 Intake Total 1840 1450 Output Total 3500 2500 Balance -1660 -1050 Result Diagrams: 08/23/18 08:39 08/23/18 04:31 EKG Reviewed by me: Yes (Tele: NSR, 18 beat PAC last night) Phys Exam - Physical Examination Constitutional: NAD HEENT: moist MMs Neck: supple Respiratory: clear to auscultation bilateral Cardiovascular: RRR Gastrointestinal: soft Neurological: moves all 4 limbs Psychiatric: normal affect Dx/Plan (1) Pneumonia Code(s): J18.9 - PNEUMONIA, UNSPECIFIED ORGANISM Status: Acute Comment: continue levofloxacin, discontinue IV Zosyn (2) Volume overload Code(s): E87.70 - FLUID OVERLOAD, UNSPECIFIED Status: Acute Comment: continue IV furosemide (3) Physical deconditioning Code(s): R53.81 - OTHER MALAISE Status: Acute Comment: will likely need Inpt Rehab or SNU (4) Essential (primary) hypertension Code(s): I10 - ESSENTIAL (PRIMARY) HYPERTENSION Status: Chronic Comment: on amlodipine and hydralazine (5) Diarrhea Code(s): R19.7 - DIARRHEA, UNSPECIFIED Status: Resolved (6) Hypokalemia Code(s): E87.6 - HYPOKALEMIA Status: Resolved (7) AB (acute kidney injury) Code(s): N17.9 - ACUTE KIDNEY FAILURE, UNSPECIFIED Status: Resolved (8) Diastolic congestive heart failure Code(s): I50.30 - UNSPECIFIED DIASTOLIC (CONGESTIVE) HEART FAILURE Status: Suspected Comment: continue diuretics - Plan * . Continues to have PACs. Aliskiren to be discontinued at the time of discharge. Review of Systems - Review of Systems Respiratory: negative: Cough, Shortness of Breath, SOB with Excertion, Pleuritic Pain, Wheezing Cardiovascular: negative: chest pain, palpitations, orthopnea, paroxysmal nocturnal dyspnea, edema, light headedness - Medications/Allergies Allergies/Adverse Reactions: Allergies Allergy/AdvReac Type Severity Reaction Status Date / Time cefazolin [From Ancef] Allergy Intermediate Rash Verified 09/23/16 13:53 ibuprofen Allergy NOT SURE Verified 09/23/16 13:14 OF REACTION nitrofurantoin Allergy Verified 08/17/18 00:40 [From Macrobid] Medications: Current Medications Albuterol/Ipratropium (Duoneb) 3 ml NEB Q4H PRN PRN Reason: SOB &/or Wheezing Last Admin: 08/20/18 04:19 Dose: 3 ml Amlodipine Besylate (Norvasc) 10 mg PO DAILY [facility] Last Admin: 08/23/18 08:14 Dose: 10 mg Aspirin (Aspirin Chewable) 81 mg PO DAILY [facility] Last Admin: 08/23/18 08:16 Dose: 81 mg Bisacodyl (Dulcolax) 10 mg PO DAILYPRN PRN PRN Reason: Constipation Last Admin: 08/21/18 11:57 Dose: 10 mg Calcium Carbonate (Caltrate) 1,200 mg PO DAILY [facility] Last Admin: 08/23/18 08:15 Dose: 1,200 mg Cholecalciferol (Vitamin D) 800 units PO DAILY [facility] Last Admin: 08/23/18 08:16 Dose: 800 units Enoxaparin Sodium (Lovenox) 30 mg SC 0900 [facility] Last Admin: 08/23/18 08:16 Dose: 30 mg Furosemide (Lasix) 20 mg SLOW IVP DAILY [facility] Last Admin: 08/23/18 08:15 Dose: 20 mg Hydralazine HCl (Apresoline) 10 mg SLOW IVP Q4H PRN PRN Reason: SBP > 180 Hydralazine HCl (Apresoline) 25 mg PO TID [facility] Last Admin: 08/23/18 08:15 Dose: 25 mg Piperacillin Sod/Tazobactam (Sod 4.5 gm/ Sodium Chloride) 100 mls @ 200 mls/hr IVPB 0400,1200,2000 [facility] Last Admin: 08/23/18 05:17 Dose: 100 mls Levofloxacin 750 mg/ Device 150 mls @ 100 mls/hr IVPB Q24HR [facility] Last Admin: 08/22/18 13:03 Dose: 150 mls Promethazine HCl 25 mg/ Sodium (Chloride) 51 mls @ 306 mls/hr IVPB Q6H PRN PRN Reason: Nausea Loperamide HCl (Imodium) 2 mg PO ASDIR PRN PRN Reason: Diarrhea/Loose Stools Magnesium Oxide (Magnesium Oxide) 400 mg PO DAILY [facility] Last Admin: 08/23/18 08:15 Dose: 400 mg Miscellaneous Medication (Phos-Nak) 1 pkt PO BID [facility] Last Admin: 08/23/18 08:15 Dose: 1 pkt Nebivolol (Bystolic) 20 mg PO DAILY [facility] Last Admin: 08/23/18 08:16 Dose: 20 mg Pantoprazole Sodium (Protonix) 40 mg PO DAILY [facility] Last Admin: 08/23/18 08:15 Dose: 40 mg Potassium Chloride (K-Dur) 40 meq PO QAM-WM [facility] Last Admin: 08/23/18 08:15 Dose: 40 meq Senna/Docusate Sodium (Senokot S) 2 tab PO BID PRN PRN Reason: Constipation Sodium Bicarbonate (Bicarbonate, Sodium) 650 mg PO BID [facility] Last Admin: 08/23/18 08:14 Dose: 650 mg Sodium Chloride (Flush - Normal Saline) 10 ml IVF Q12HR [facility] Last Admin: 08/23/18 08:16 Dose: 10 ml Sodium Chloride (Flush - Normal Saline) 10 ml IVF PRN PRN PRN Reason: Saline Flush Last Admin: 08/20/18 12:11 Dose: 10 ml Tramadol HCl (Ultram) 50 mg PO TID PRN PRN Reason: Mild-Moderate Pain (1-5) Last Admin: 08/22/18 20:59 Dose: 50 mg
[2018-08-23] MEDS: traMADol HCl 50 MG TAB PO PRN (21:05)
[2018-08-24 06:20] LABS: #Basophils 0.1 thou/uL (0.0-0.2); #Eosinphils 0.4 thou/uL (0.0-0.7); #Lymphocytes 2.4 thou/uL (1.20-3.40); #Monocytes 1.3 thou/uL (0.11-0.59); #Neutrophils 6.1 thou/uL (1.40-6.50); %Basophils 0.8 % (0.0-1.0); %Eosinophils 3.5 % (0.0-10.0); %Lymphocytes 23.4 % (21.0-51.0); %Monocytes 12.9 % (0.0-10.0); %Neutrophils 59.4 % (42.0-75.0); Hemoglobin 11.7 g/dL (12.0-16.0); Mean Corpuscular HGB CONC 33.3 g/dL (32.0-36.0); Mean Corpuscular Hemoglobin 29.8 pg (27.0-31.0); Mean Corpuscular Volume 89.5 fL (78.0-98.0); Mean Platelet Volume 7.7 fL (7.4-10.4); Platelet Count 256 thou/uL (130-400); RBC Distribution Width 12.3 % (11.5-14.5); Red Blood Cell (RBC) Count 3.93 mill/uL (4.20-5.40); White Blood Cell (WBC) Count 10.2 thou/uL (4.8-10.8)
[2018-08-24 07:02] LABS: Anion Gap 11 mmol/L (10-20); BUN (Urea Nitrogen) 16 mg/dL (9.8-20.1); Calc. Creatinine Clearance 39 mL/min (70-130); Calcium 9.8 mg/dL (7.8-10.44); Carbon Dioxide 29 mmol/L (23-31); Chloride 104 mmol/L (98-107); Estimated GFR-MDRD 38; Glucose 94 mg/dL (83-110); Phosphorus 2.7 mg/dL (2.3-4.7); Potassium 3.7 mmol/L (3.5-5.1); Sodium 140 mmol/L (136-145)
[2018-08-24] MEDS: Potassium Chloride 20 MEQ TAB PO SCH (09:52)
[2018-08-24] MEDS: Amlodipine 10 MG TAB PO SCH (09:53)
[2018-08-24] MEDS: Furosemide 20 MG/2 ML VIAL SLOW IVP SCH (09:56)
[2018-08-24] MEDS: Calcium Carbonate 600 MG TAB PO SCH (09:57)
[2018-08-24] MEDS: Sodium Bicarbonate Tab 325 MG TAB PO SCH ×2 (09:57→20:30)
[2018-08-24] MEDS: Nebivolol HCl 5 MG TAB PO SCH (09:57)
[2018-08-24] MEDS: Magnesium Oxide 400 MG TAB PO SCH ×2 (09:58→20:30)
[2018-08-24] MEDS: Cholecalciferol (Vitamin D3) 400 UNITS TAB PO SCH (09:58)
[2018-08-24] MEDS: hydrALAZINE 25 MG TAB PO SCH ×3 (09:58→20:31)
[2018-08-24] MEDS: Enoxaparin Sodium 30 MG/0.3 ML SYRINGE SC SCH (09:58)
--- NOTE | 2018-08-24 10:06 | PDOC.PN ---
- Subjective Encounter Start Date: 08/24/18 Encounter Start Time: 07:20 Pt seen for followup re: pneumonia. Feels better. Has loose stools. - Objective Resuscitation Status - Order Detail: 08/16/18 23:09 Resuscitation Status Routine Resuscitation Status: FULL: Full Resuscitation MAR Reviewed: Yes Vital Signs & Weight: Vital Signs (12 hours) Temp Pulse Resp BP BP Pulse Ox 08/24/18 09:58 65 141/63 H 08/24/18 09:53 65 141/63 H 08/24/18 04:00 98.2 F 61 14 144/65 H 93 L Weight Admit Weight 176 lb Weight 171 lb 9.6 oz I&O: 08/23/18 08/24/18 08/25/18 06:59 06:59 06:59 Intake Total 1450 300 Output Total 2500 2400 Balance -1050 -2100 Result Diagrams: 08/24/18 05:21 08/24/18 05:21 EKG Reviewed by me: Yes (Tele: NSR, 15 beat PAT yesterday evening) Phys Exam - Physical Examination Constitutional: NAD HEENT: moist MMs Neck: supple Respiratory: clear to auscultation bilateral Cardiovascular: RRR Gastrointestinal: soft Neurological: moves all 4 limbs Psychiatric: normal affect Dx/Plan (1) Pneumonia Code(s): J18.9 - PNEUMONIA, UNSPECIFIED ORGANISM Status: Acute Comment: continue levofloxacin, repeat CXR (2) Volume overload Code(s): E87.70 - FLUID OVERLOAD, UNSPECIFIED Status: Acute Comment: continue IV furosemide (3) Physical deconditioning Code(s): R53.81 - OTHER MALAISE Status: Acute Comment: Inpt Rehab vs SNU (4) Essential (primary) hypertension Code(s): I10 - ESSENTIAL (PRIMARY) HYPERTENSION Status: Chronic Comment: reasonable control (5) Diarrhea Code(s): R19.7 - DIARRHEA, UNSPECIFIED Status: Acute Comment: start Florastor, ? antibiotic-induced (6) BA (acute kidney injury) Code(s): N17.9 - ACUTE KIDNEY FAILURE, UNSPECIFIED Status: Acute Comment: mild, likely due to diuresis (7) Diastolic congestive heart failure Code(s): I50.30 - UNSPECIFIED DIASTOLIC (CONGESTIVE) HEART FAILURE Status: Suspected Comment: continue diuretics (8) Hypokalemia Code(s): E87.6 - HYPOKALEMIA Status: Resolved (9) Hypomagnesemia Code(s): E83.42 - HYPOMAGNESEMIA Status: Resolved - Plan plan discussed w/ family, continue antibiotics, PT/OT * . Aliskiren to be discontinued. Repeat Chest x-ray today. Pt reportedly has intolerance to oral levofloxacin. May need different oral antibiotic at the time of discharge. Palliative care team consulted yesterday to discuss goals of care. Review of Systems - Review of Systems Respiratory: negative: Cough, Shortness of Breath, SOB with Excertion, Pleuritic Pain, Wheezing Gastrointestinal: Diarrhea. negative: Nausea, Vomiting, Abdominal Pain, Constipation, Melena, Hematochezia - Medications/Allergies Allergies/Adverse Reactions: Allergies Allergy/AdvReac Type Severity Reaction Status Date / Time cefazolin [From Anc] Allergy Intermediate Rash Verified 09/23/16 13:53 ibuprofen Allergy NOT SURE Verified 09/23/16 13:14 OF REACTION nitrofurantoin Allergy Verified 08/17/18 00:40 [From Macrobid] Medications: Current Medications Albuterol/Ipratropium (Duoneb) 3 ml NEB Q4H PRN PRN Reason: SOB &/or Wheezing Last Admin: 08/20/18 04:19 Dose: 3 ml Amlodipine Besylate (Norvasc) 10 mg PO DAILY [facility] Last Admin: 08/24/18 09:53 Dose: 10 mg Aspirin (Aspirin Chewable) 81 mg PO DAILY [facility] Last Admin: 08/24/18 09:56 Dose: 81 mg Bisacodyl (Dulcolax) 10 mg PO DAILYPRN PRN PRN Reason: Constipation Last Admin: 08/21/18 11:57 Dose: 10 mg Calcium Carbonate (Caltrate) 1,200 mg PO DAILY [facility] Last Admin: 08/24/18 09:57 Dose: 1,200 mg Cholecalciferol (Vitamin D) 800 units PO DAILY [facility] Last Admin: 08/24/18 09:58 Dose: 800 units Enoxaparin Sodium (Lovenox) 30 mg SC 0900 [facility] Last Admin: 08/24/18 09:58 Dose: 30 mg Furosemide (Lasix) 20 mg SLOW IVP DAILY [facility] Last Admin: 08/24/18 09:56 Dose: 20 mg Hydralazine HCl (Apresoline) 10 mg SLOW IVP Q4H PRN PRN Reason: SBP > 180 Hydralazine HCl (Apresoline) 25 mg PO TID [facility] Last Admin: 08/24/18 09:58 Dose: 25 mg Levofloxacin 750 mg/ Device 150 mls @ 100 mls/hr IVPB Q24HR [facility] Last Admin: 08/23/18 13:51 Dose: 150 mls Promethazine HCl 25 mg/ Sodium (Chloride) 51 mls @ 306 mls/hr IVPB Q6H PRN PRN Reason: Nausea Loperamide HCl (Imodium) 2 mg PO ASDIR PRN PRN Reason: Diarrhea/Loose Stools Magnesium Oxide (Magnesium Oxide) 400 mg PO BID [facility] Miscellaneous Medication (Phos-Nak) 1 pkt PO BID [facility] Last Admin: 08/24/18 09:59 Dose: 1 pkt Nebivolol (Bystolic) 20 mg PO DAILY [facility] Last Admin: 08/24/18 09:57 Dose: 20 mg Pantoprazole Sodium (Protonix) 40 mg PO DAILY [facility] Last Admin: 08/24/18 09:57 Dose: 40 mg Potassium Chloride (K-Dur) 40 meq PO QAM-WM [facility] Last Admin: 08/24/18 09:52 Dose: 40 meq Saccharomyces Boulardii (Florastor) 250 mg PO DAILY [facility] Saccharomyces Boulardii (Florastor) 250 mg PO ONE [facility] Senna/Docusate Sodium (Senokot S) 2 tab PO BID PRN PRN Reason: Constipation Sodium Bicarbonate (Bicarbonate, Sodium) 650 mg PO BID [facility] Last Admin: 08/24/18 09:57 Dose: 650 mg Sodium Chloride (Flush - Normal Saline) 10 ml IVF Q12HR [facility] Last Admin: 08/24/18 09:59 Dose: 10 ml Sodium Chloride (Flush - Normal Saline) 10 ml IVF PRN PRN PRN Reason: Saline Flush Last Admin: 08/20/18 12:11 Dose: 10 ml Tramadol HCl (Ultram) 50 mg PO TID PRN PRN Reason: Mild-Moderate Pain (1-5) Last Admin: 08/23/18 21:05 Dose: 50 mg
[2018-08-24] MEDS ORDERED: Saccharomyces boulardii 250 MG CAP PO SCH (10:15)
--- NOTE | 2018-08-24 10:43 | PRG ---
DATE OF SERVICE: SUBJECTIVE: Ms. Huitron is an 83-year-old white female who was seen for an acute kidney injury that was hemodynamically-mediated renal dysfunction. This improved with hydration; however, she developed diastolic dysfunction/CHF. Currently, she is still being diuresed. Renal function slightly worsened with a creatinine 1.33 from 1.11. The plan is simply to observe her regarding this. She also had some electrolyte abnormalities, which is now corrected. No new complaints today. Breathing is a little better. OBJECTIVE: VITAL SIGNS: Blood pressure is 144/65, heart rate 61, respiratory rate 14, temperature 98.2, pulse ox 98%. GENERAL: Awake, alert, comfortable, not in overt distress. SKIN: Adequate turgor. HEENT: She has pinkish conjunctivae, anicteric sclerae. No neck mass. No carotid bruits. No JVD. CHEST: No deformities. LUNGS: Decreased breath sounds. HEART: Normal sinus rhythm. No murmur. No gallops. No rubs. ABDOMEN: Globular, soft, nontender. No masses. EXTREMITIES: No edema. No deformities. MEDICATIONS: Medications of August 24, 2018, were reviewed. LABORATORY DATA: Laboratories of August 24, 2018, showed sodium 140, potassium 3.7, chloride 104, carbon dioxide 29, BUN 16, creatinine 1.33, glucose 94, calcium 9.8, phosphorus is 2.7, magnesium is 1.9. Hemoglobin 11.7. ASSESSMENT AND PLAN: 1. Congestive heart failure - secondary to diastolic dysfunction, clinically improving with diuresis. 2. Acute kidney injury - fluctuating creatinine. The slightly higher creatinine today may simply be a reflection of the current diuretic regimen. Continue to observe. No indication for any dialysis. 3. Hypophosphatemia, currently on phosphorus replacement. 4. Hypomagnesemia, much improved. The patient is status post magnesium sulfate infusion, currently on magnesium oxide at 400 mg tab once a day. Consider increasing it to twice a day. We will recheck basic metabolic, phosphorus, and magnesium in a.m. Job ID: [id number]
[2018-08-24 12:08] VITALS: BMI 27.6
--- NOTE | 2018-08-24 13:11 | RAD ---
FRONTAL RADIOGRAPH CHEST: Date: 08-24-18 Comparison: 08-20-18 History: Hypoxia. FINDINGS: There is hazy nonspecific increased density in the left lung base with partial obscuration of the lef t hemidiaphragm. There is no pneumothorax seen. There is mild pulmonary vascular congestion. Aeration within the left perihilar region and left base has improved when compared to the prior examination. The right lung is grossly unremarkable. Heart and mediastinal contours are stable with stable prominence of the cardia c silhouette. Post-operative clips overlie the axillary region on the left. IMPRESSION: Persistent nonspecific but improving hazy density in the left lung base. Continued follow up to full resolution advised. POS: [facility]
[2018-08-24] MEDS ORDERED: ALPRAZolam 0.25 MG TAB PO SCH (15:00)
[2018-08-24] MEDS: traMADol HCl 50 MG TAB PO PRN (20:40)
[2018-08-25 06:40] LABS: Anion Gap 12 mmol/L (10-20); BUN (Urea Nitrogen) 18 mg/dL (9.8-20.1); Calc. Creatinine Clearance 34 mL/min (70-130); Calcium 9.7 mg/dL (7.8-10.44); Carbon Dioxide 29 mmol/L (23-31); Chloride 104 mmol/L (98-107); Estimated GFR-MDRD 33; Glucose 92 mg/dL (83-110); Magnesium 1.5 mg/dL (1.6-2.6); Phosphorus 3.5 mg/dL (2.3-4.7); Sodium 141 mmol/L (136-145)
[2018-08-25] MEDS: Enoxaparin Sodium 30 MG/0.3 ML SYRINGE SC SCH (08:49)
[2018-08-25] MEDS: Calcium Carbonate 600 MG TAB PO SCH (08:52)
[2018-08-25] MEDS: Furosemide 20 MG/2 ML VIAL SLOW IVP SCH (08:52)
[2018-08-25] MEDS: Amlodipine 10 MG TAB PO SCH (08:53)
[2018-08-25] MEDS: Cholecalciferol (Vitamin D3) 400 UNITS TAB PO SCH (08:53)
[2018-08-25] MEDS: Sodium Bicarbonate Tab 325 MG TAB PO SCH ×2 (08:53→19:53)
[2018-08-25] MEDS: Magnesium Oxide 400 MG TAB PO SCH ×2 (08:53→19:54)
[2018-08-25] MEDS: hydrALAZINE 25 MG TAB PO SCH ×3 (08:54→19:54)
[2018-08-25] MEDS: Potassium Chloride 20 MEQ TAB PO SCH (08:54)
[2018-08-25] MEDS: Saccharomyces boulardii 250 MG CAP PO SCH (08:54)
--- NOTE | 2018-08-25 11:25 | PRG ---
DATE OF SERVICE: 08/25/2018 SUBJECTIVE: Ms. Huitron is an 83-year-old white female, seen by the Renal Service for acute kidney injury and electrolyte abnormality. Creatinine is slowly increasing in the last several days and currently 1.5. This is a reflection of the current diuretic regimen. No new complaints. No chest pain or shortness of breath. OBJECTIVE: VITAL SIGNS: Blood pressure 160/69, heart rate 54, respiratory rate 16, temperature 97.6, and pulse ox 94%. GENERAL: Noted to be awake. Supine, comfortable, mildly dysarthric. SKIN: Adequate turgor. HEENT: She has pinkish conjunctivae. Anicteric sclerae. NECK: No neck mass. No carotid bruits. No JVD. CHEST: No deformities. LUNGS: Decreased breath sounds. HEART: Normal sinus rhythm. No murmur. No gallops or rubs. ABDOMEN: Globular, soft, nontender. No masses. EXTREMITIES: No edema. No deformities. MEDICATIONS: Medications of August 25, 2018, reviewed. LABORATORY DATA: Laboratories of August 24, 2018, white count 10.2, and hemoglobin 11.7. August 25, 2018, sodium 141, potassium 4, chloride 104, carbon dioxide 29, BUN 18, creatinine 1.5, magnesium 1.5, and phosphorus 3.5. ASSESSMENT/PLAN: 1. Acute kidney injury - hemodynamically-mediated renal dysfunction. Creatinine is slightly high at 1.5. Yesterday, this was 1.33. This is a reflection of her current diuretic regimen. The patient continues to receive her diuretics today. My suggestion is to hold her diuretics, if renal function further worsens. 2. Metabolic acidosis, sodium bicarbonate. 3. Hypokalemia, resolved. 4. Mild hypomagnesemia - continuing magnesium oxide 400 mg b.i.d. 5. Hypophosphatemia - much improved. We will decrease her phosphorus supplementation to once a day. Job ID: [id number]
--- NOTE | 2018-08-25 13:45 | PDOC.PN ---
- Subjective Encounter Start Date: 08/25/18 Encounter Start Time: 09:15 Subjective: pt up in bed no complains - Objective Resuscitation Status - Order Detail: 08/16/18 23:09 Resuscitation Status Routine Resuscitation Status: FULL: Full Resuscitation Vital Signs & Weight: Vital Signs (12 hours) Temp Pulse Pulse Pulse Resp BP BP 08/25/18 11:45 97.5 F L 55 L 18 08/25/18 10:21 65 52 L 145/67 H 08/25/18 08:54 54 L 08/25/18 08:53 54 L 187/92 H 08/25/18 07:30 97.6 F 54 L 16 08/25/18 03:05 97.4 F L 54 L 14 BP BP Pulse Ox 08/25/18 11:45 126/60 08/25/18 10:21 142/63 H 08/25/18 08:54 08/25/18 08:53 08/25/18 07:30 160/69 H 94 L 08/25/18 03:05 146/66 H 95 Weight Admit Weight 176 lb Weight 176 lb 3.2 oz I&O: 08/24/18 08/25/18 08/26/18 06:59 06:59 06:59 Intake Total 300 1470 Output Total 2400 1525 Balance -2100 -55 Result Diagrams: 08/24/18 05:21 08/25/18 05:58 Phys Exam - Physical Examination Neck: no nodes, no JVD, supple, full ROM Respiratory: no wheezing, no rales, no rhonchi, wheezing present, clear to auscultation bilateral Cardiovascular: RRR, no significant murmur, no rub, gallop, irregular Gastrointestinal: soft, non-tender, no distention, positive bowel sounds Dx/Plan (1) Pneumonia Code(s): J18.9 - PNEUMONIA, UNSPECIFIED ORGANISM Status: Acute (2) BA (acute kidney injury) Code(s): N17.9 - ACUTE KIDNEY FAILURE, UNSPECIFIED Status: Acute Comment: mild, likely due to diuresis - Plan * . Review of Systems - Review of Systems Respiratory: negative: Cough, Dry, Shortness of Breath, Hemoptysis, SOB with Excertion, Pleuritic Pain, Sputum, Wheezing Cardiovascular: negative: chest pain, palpitations, orthopnea, paroxysmal nocturnal dyspnea, edema, light headedness, other Gastrointestinal: negative: Nausea, Vomiting, Abdominal Pain, Diarrhea, Constipation, Melena, Hematochezia, Other Genitourinary: negative: Dysuria, Frequency, Incontinence, Hematuria, Retention , Other - Medications/Allergies Allergies/Adverse Reactions: Allergies Allergy/AdvReac Type Severity Reaction Status Date / Time cefazolin [From Ancef] Allergy Intermediate Rash Verified 09/23/16 13:53 ibuprofen Allergy NOT SURE Verified 09/23/16 13:14 OF REACTION nitrofurantoin Allergy Verified 08/17/18 00:40 [From Macrobid] Medications: Current Medications Albuterol/Ipratropium (Duoneb) 3 ml NEB Q4H PRN PRN Reason: SOB &/or Wheezing Last Admin: 08/20/18 04:19 Dose: 3 ml Amlodipine Besylate (Norvasc) 10 mg PO DAILY [facility] Last Admin: 08/25/18 08:53 Dose: 10 mg Aspirin (Aspirin Chewable) 81 mg PO DAILY [facility] Last Admin: 08/25/18 08:54 Dose: 81 mg Bisacodyl (Dulcolax) 10 mg PO DAILYPRN PRN PRN Reason: Constipation Last Admin: 08/21/18 11:57 Dose: 10 mg Calcium Carbonate (Caltrate) 1,200 mg PO DAILY [facility] Last Admin: 08/25/18 08:52 Dose: 1,200 mg Cholecalciferol (Vitamin D) 800 units PO DAILY [facility] Last Admin: 08/25/18 08:53 Dose: 800 units Hydralazine HCl (Apresoline) 10 mg SLOW IVP Q4H PRN PRN Reason: SBP > 180 Hydralazine HCl (Apresoline) 25 mg PO TID [facility] Last Admin: 08/25/18 08:54 Dose: 25 mg Levofloxacin 750 mg/ Device 150 mls @ 100 mls/hr IVPB Q24HR [facility] Last Admin: 08/24/18 12:40 Dose: 150 mls Promethazine HCl 25 mg/ Sodium (Chloride) 51 mls @ 306 mls/hr IVPB Q6H PRN PRN Reason: Nausea Loperamide HCl (Imodium) 2 mg PO ASDIR PRN PRN Reason: Diarrhea/Loose Stools Magnesium Oxide (Magnesium Oxide) 400 mg PO BID [facility] Last Admin: 08/25/18 08:53 Dose: 400 mg Miscellaneous Medication (Phos-Nak) 1 pkt PO DAILY [facility] Nebivolol (Bystolic) 10 mg PO DAILY [facility] Pantoprazole Sodium (Protonix) 40 mg PO DAILY [facility] Last Admin: 08/25/18 08:53 Dose: 40 mg Potassium Chloride (K-Dur) 40 meq PO QAM-WM [facility] Last Admin: 08/25/18 08:54 Dose: 40 meq Saccharomyces Boulardii (Florastor) 250 mg PO DAILY [facility] Last Admin: 08/25/18 08:54 Dose: 250 mg Saccharomyces Boulardii (Florastor) 250 mg PO ONE [facility] Stop: 08/26/18 10:16 Last Admin: 08/24/18 12:41 Dose: 250 mg Senna/Docusate Sodium (Senokot S) 2 tab PO BID PRN PRN Reason: Constipation Sodium Bicarbonate (Bicarbonate, Sodium) 650 mg PO BID [facility] Last Admin: 08/25/18 08:53 Dose: 650 mg Sodium Chloride (Flush - Normal Saline) 10 ml IVF Q12HR [facility] Last Admin: 08/25/18 08:54 Dose: 10 ml Sodium Chloride (Flush - Normal Saline) 10 ml IVF PRN PRN PRN Reason: Saline Flush Last Admin: 08/20/18 12:11 Dose: 10 ml Tramadol HCl (Ultram) 50 mg PO TID PRN PRN Reason: Mild-Moderate Pain (1-5) Last Admin: 08/24/18 20:40 Dose: 50 mg
--- NOTE | 2018-08-25 14:22 | PDOC.PN ---
- Subjective Encounter Start Date: 08/25/18 Encounter Start Time: 11:15 Subjective: pt up in bed no complains - Objective Resuscitation Status - Order Detail: 08/16/18 23:09 Resuscitation Status Routine Resuscitation Status: FULL: Full Resuscitation Vital Signs & Weight: Vital Signs (12 hours) Temp Pulse Pulse Pulse Resp BP BP 08/25/18 11:45 97.5 F L 55 L 18 08/25/18 10:21 65 52 L 145/67 H 08/25/18 08:54 54 L 08/25/18 08:53 54 L 187/92 H 08/25/18 07:30 97.6 F 54 L 16 08/25/18 03:05 97.4 F L 54 L 14 BP BP Pulse Ox 08/25/18 11:45 126/60 08/25/18 10:21 142/63 H 08/25/18 08:54 08/25/18 08:53 08/25/18 07:30 160/69 H 94 L 08/25/18 03:05 146/66 H 95 Weight Admit Weight 176 lb Weight 176 lb 3.2 oz I&O: 08/24/18 08/25/18 08/26/18 06:59 06:59 06:59 Intake Total 300 1470 Output Total 2400 1525 Balance -2100 -55 Result Diagrams: 08/24/18 05:21 08/25/18 05:58 Phys Exam - Physical Examination Neck: no nodes, no JVD, supple, full ROM Respiratory: no wheezing, no rales, no rhonchi, wheezing present, clear to auscultation bilateral Cardiovascular: RRR, no significant murmur, no rub, gallop, irregular Gastrointestinal: soft, non-tender, no distention, positive bowel sounds Dx/Plan (1) Pneumonia Code(s): J18.9 - PNEUMONIA, UNSPECIFIED ORGANISM Status: Acute (2) BA (acute kidney injury) Code(s): N17.9 - ACUTE KIDNEY FAILURE, UNSPECIFIED Status: Acute Comment: mild, likely due to diuresis - Plan pt's creatinine 1.5 worse from yestarday -: will discontinue lovonox and lasix and monitor for one more day -: will discontinue dc also per urology recommedation -: will continue iv abx * . Review of Systems - Review of Systems Respiratory: negative: Cough, Dry, Shortness of Breath, Hemoptysis, SOB with Excertion, Pleuritic Pain, Sputum, Wheezing Cardiovascular: negative: chest pain, palpitations, orthopnea, paroxysmal nocturnal dyspnea, edema, light headedness, other Gastrointestinal: negative: Nausea, Vomiting, Abdominal Pain, Diarrhea, Constipation, Melena, Hematochezia, Other Genitourinary: negative: Dysuria, Frequency, Incontinence, Hematuria, Retention , Other - Medications/Allergies Allergies/Adverse Reactions: Allergies Allergy/AdvReac Type Severity Reaction Status Date / Time cefazolin [From Anc] Allergy Intermediate Rash Verified 09/23/16 13:53 ibuprofen Allergy NOT SURE Verified 09/23/16 13:14 OF REACTION nitrofurantoin Allergy Verified 08/17/18 00:40 [From Macrobid] Medications: Current Medications Albuterol/Ipratropium (Duoneb) 3 ml NEB Q4H PRN PRN Reason: SOB &/or Wheezing Last Admin: 08/20/18 04:19 Dose: 3 ml Amlodipine Besylate (Norvasc) 10 mg PO DAILY [facility] Last Admin: 08/25/18 08:53 Dose: 10 mg Aspirin (Aspirin Chewable) 81 mg PO DAILY [facility] Last Admin: 08/25/18 08:54 Dose: 81 mg Bisacodyl (Dulcolax) 10 mg PO DAILYPRN PRN PRN Reason: Constipation Last Admin: 08/21/18 11:57 Dose: 10 mg Calcium Carbonate (Caltrate) 1,200 mg PO DAILY [facility] Last Admin: 08/25/18 08:52 Dose: 1,200 mg Cholecalciferol (Vitamin D) 800 units PO DAILY [facility] Last Admin: 08/25/18 08:53 Dose: 800 units Hydralazine HCl (Apresoline) 10 mg SLOW IVP Q4H PRN PRN Reason: SBP > 180 Hydralazine HCl (Apresoline) 25 mg PO TID [facility] Last Admin: 08/25/18 08:54 Dose: 25 mg Levofloxacin 750 mg/ Device 150 mls @ 100 mls/hr IVPB Q24HR [facility] Last Admin: 08/24/18 12:40 Dose: 150 mls Promethazine HCl 25 mg/ Sodium (Chloride) 51 mls @ 306 mls/hr IVPB Q6H PRN PRN Reason: Nausea Loperamide HCl (Imodium) 2 mg PO ASDIR PRN PRN Reason: Diarrhea/Loose Stools Magnesium Oxide (Magnesium Oxide) 400 mg PO BID [facility] Last Admin: 08/25/18 08:53 Dose: 400 mg Miscellaneous Medication (Phos-Nak) 1 pkt PO DAILY [facility] Nebivolol (Bystolic) 10 mg PO DAILY [facility] Pantoprazole Sodium (Protonix) 40 mg PO DAILY [facility] Last Admin: 08/25/18 08:53 Dose: 40 mg Potassium Chloride (K-Dur) 40 meq PO QAM-WM [facility] Last Admin: 08/25/18 08:54 Dose: 40 meq Saccharomyces Boulardii (Florastor) 250 mg PO DAILY [facility] Last Admin: 08/25/18 08:54 Dose: 250 mg Saccharomyces Boulardii (Florastor) 250 mg PO ONE [facility] Stop: 08/26/18 10:16 Last Admin: 08/24/18 12:41 Dose: 250 mg Senna/Docusate Sodium (Senokot S) 2 tab PO BID PRN PRN Reason: Constipation Sodium Bicarbonate (Bicarbonate, Sodium) 650 mg PO BID [facility] Last Admin: 08/25/18 08:53 Dose: 650 mg Sodium Chloride (Flush - Normal Saline) 10 ml IVF Q12HR [facility] Last Admin: 08/25/18 08:54 Dose: 10 ml Sodium Chloride (Flush - Normal Saline) 10 ml IVF PRN PRN PRN Reason: Saline Flush Last Admin: 08/20/18 12:11 Dose: 10 ml Tramadol HCl (Ultram) 50 mg PO TID PRN PRN Reason: Mild-Moderate Pain (1-5) Last Admin: 08/24/18 20:40 Dose: 50 mg
[2018-08-25] MEDS: ALPRAZolam 0.25 MG TAB PO SCH ×2 (19:54→19:55)
[2018-08-26 07:50] LABS: BUN (Urea Nitrogen) 19 mg/dL (9.8-20.1); Calc. Creatinine Clearance 33 mL/min (70-130); Calcium 9.9 mg/dL (7.8-10.44); Carbon Dioxide 29 mmol/L (23-31); Chloride 105 mmol/L (98-107); Estimated GFR-MDRD 31; Glucose 102 mg/dL (83-110); Sodium 142 mmol/L (136-145)
[2018-08-26 07:56] LABS: Anion Gap 12 mmol/L (10-20)
[2018-08-26] MEDS ORDERED: Nebivolol HCl 5 MG TAB PO SCH (09:00)
[2018-08-26] MEDS: Cholecalciferol (Vitamin D3) 400 UNITS TAB PO SCH (09:41)
[2018-08-26] MEDS: Potassium Chloride 20 MEQ TAB PO SCH (09:42)
[2018-08-26] MEDS: hydrALAZINE 25 MG TAB PO SCH (09:43)
[2018-08-26] MEDS: Sodium Bicarbonate Tab 325 MG TAB PO SCH (09:44)
[2018-08-26] MEDS: Calcium Carbonate 600 MG TAB PO SCH (09:45)
[2018-08-26] MEDS: Magnesium Oxide 400 MG TAB PO SCH (09:45)
[2018-08-26] MEDS: Saccharomyces boulardii 250 MG CAP PO SCH (09:50)
[2018-08-26] MEDS: Amlodipine 10 MG TAB PO SCH (09:50)
[2018-08-26 12:54] VITALS: BP 130/73; TEMP 98
[2018-08-26] MEDS: traMADol HCl 50 MG TAB PO PRN (12:56)
--- NOTE | 2018-08-27 22:41 | DIS ---
DATE OF ADMISSION: 08/16/2018 DATE OF DISCHARGE: 08/26/2018 DISCHARGE DIAGNOSES: Is as of the following; 1. Pneumonia. 2. Acute kidney injury. 3. Hypertension. 4. Volume overload. 5. Diarrhea. 6. Hypokalemia. 7. Diastolic heart failure. HOSPITAL COURSE: The patient is a very pleasant 83-year-old female, who initially presented to the hospital on the with dysuria and urinary retention. The patient does have a past medical history of hypertension; breast cancer, status post chemo and surgery; has a history of TIAs and peripheral neuropathy. She also has a history of recurrent kidney stones, initially presented to the hospital with dysuria and urinary retention. The patient underwent a CT of the abdomen and pelvis without contrast, which indicated punctated nonobstructive lower-pole left renal calculi and two hypodensities within the right kidney and one in the left kidney, which most likely represents a cyst, and also a nonobstructive upper-pole right renal calculi was noted. At this time, Urology was consulted who recommended inserting a Carvajal catheter since her postvoid residual was 350 mL. Recommendations from Urology were to leave the Carvajal catheter in and to call his office on Tuesday to see for possible removal of the Carvajal catheter. It was noted that the patient was recently on ciprofloxacin 2 weeks prior to this admission. Due to her also acute kidney injury, she was seen by Renal. The patient initially was thought to be dehydrated given the fact that she was having also some diarrhea, and at this time, her urine did not indicate any UTI. She also had an echocardiogram, which was recently done in March of 2018, which indicated a normal EF and her cardiac enzymes were normal. The patient continued to improve throughout the hospital stay. She was also seen by Cardiology for low blood pressure and also some bradycardia. It seems per Cardiology's note that she has also had some history of ventricular and supraventricular ectopic beats; however, the patient did not complain of any palpitations at this time. While she was monitored on Telemetry, it was noted that she did have an episode of atrial tachycardia, for which Cardiology thought that was most likely secondary since her beta-kin was being held by a family member prior to coming into the hospital and most likely, this was secondary to beta-kin withdrawal. At this time, her Bystolic was continued and also re-evaluation of her echocardiogram was done. Her EF was about the same 55% to 60%, left atrium was mildly dilated, and left ventricular size was mildly increased. On August 20, she did have some mild worsening shortness of breath and also decrease in mentation. At this time, a chest x-ray was done, the findings were consistent with possible CHF versus left lower lobe pneumonia. At this time, she was initially put on broad-spectrum antibiotics. The patient continued to improve. She did have a repeat chest x-ray done, which was done on August 24, that indicated persistent nonspecific but improving hazy density in the left lower lung base. The patient clinically, however, did continue to improve. The patient was found on the laboratory of worsening creatinine from 1.3 to 1.51. At this time, we did discontinue her Lasix and also anything that was nephrotoxic. On re-evaluation the next day which was 08/26, her creatinine was 1.59; however, the patient was discharged to the rehab facility and recommended to recheck a BMP on Tuesday and also Nephrology will be following her at the rehab center. HOME MEDICATIONS: 1. Omeprazole 20 mg daily. 2. Aspirin 81 mg daily. 3. Tramadol 25 mg at bedtime. The patient takes it, which helps her sleep. 4. Tramadol 50 mg t.i.d. p.r.n. 5. Sodium bicarb 650 mg b.i.d., which is temporary. 6. She is on Florastor 250 mg daily. 7. She is on Bystolic, I decreased the dose to 10 mg daily since her heart rate was in the low 50s. 8. Doxycycline 100 mg p.o. q.12 hours. 9. She was initially on Levaquin; however, she could not tolerate the p.o. Levaquin; henceforth, I prescribed her some doxycycline. 10. Norvasc 10 mg daily. 11. DuoNeb 3 mL q.4 hours p.r.n. DISCHARGE DISPOSITION: The patient will be discharged to inpatient rehab. RECOMMENDATIONS: Are as of the followin. She will have to follow up with Dr. Mina for Urology. Per nursing staff, I was told that I would recommend removing the Carvajal catheter on Tuesday and also he would like to be called. In terms of her kidneys, Dr. Garcia will be following her and also recommend checking a BMP on Tuesday to make sure the creatinine which was 1.59 on 08/26 is improving. 2. In terms of her Bystolic, I did decrease her dose from 20 mg daily to 10 mg since her heart rate was in the low 50s. Also, I have discontinued her Lasix, which need most likely to be restarted if her creatinine is back to her baseline since she is at a very high-risk for volume overload. PHYSICAL EXAMINATION: VITAL SIGNS: Temperature was 98.0, pulse 70, she was 98% on 1.5 L, respirations 20, and blood pressure 130/73. GENERAL: She is awake, alert, and oriented x3. Does not appear in any distress. CV: S1 and S2 present. No murmurs, rubs, or gallops. ABDOMEN: Soft and nontender. Bowel sounds are present x2. EXTREMITIES: No edema. Pedal pulses are present x2. Job ID: [id number]
--- NOTE | 2018-08-30 13:35 | EKG ---
Test Reason : Blood Pressure : / mmHG Vent. Rate : 090 BPM Atrial Rate : 090 BPM P-R Int : 140 ms QRS Dur : 084 ms QT Int : 372 ms P-R-T Axes : 041 -50 054 degrees QTc Int : 455 ms Normal sinus rhythm Left axis deviation Abnormal ECG Confirmed by OPAL HOLLIDAY ([id number]), editor continuity and script KELLI ORTEZ ([id number]) on 08/30/2018 1:35:16 PM Referred By: Confirmed By:OPAL HOLLIDAY
== END 2018-08-26 14:02 | DRG 682 ==
LOC: SCSER 13:48 → ERHOLD 16:35 → 2NO 19:14
PROVIDERS: ADMIT Family Medicine; ATTEND Family Medicine
DX: N17.9 Acute kidney failure, unspecified (principal); J18.1 Lobar pneumonia, unspecified organism; E87.2 Acidosis; I47.1 Supraventricular tachycardia; I13.0 Hypertensive heart and chronic kidney disease with heart failure and stage 1 through stage 4 chronic kidney disease, or unspecified chronic kidney disease; I50.30 Unspecified diastolic (congestive) heart failure; N18.9 Chronic kidney disease, unspecified; N20.0 Calculus of kidney; E83.42 Hypomagnesemia; E83.39 Other disorders of phosphorus metabolism; E87.6 Hypokalemia; E86.0 Dehydration; R33.9 Retention of urine, unspecified; G62.9 Polyneuropathy, unspecified; M19.90 Unspecified osteoarthritis, unspecified site; Z87.442 Personal history of urinary calculi; Z85.3 Personal history of malignant neoplasm of breast; Z86.73 Personal history of transient ischemic attack (TIA), and cerebral infarction without residual deficits; Z88.8 Allergy status to other drugs, medicaments and biological substances; Z79.82 Long term (current) use of aspirin; Z79.899 Other long term (current) drug therapy
CPT/HCPCS: 36415; 51701; 71045; 74176; 80048; 80053; 80069; 81003; 81015; 82553; 83605; 83690; 83735; 83880; 84100; 84484; 85025; 87040; 87086; 87324; 87449; 93005; 93306; 94640; 96361; 96365; 96367; A4353; G8978-GP-CK; G8979-GP-CJ; G8987-GO-CK; G8988-GO-CJ; J1650; J1940; J1956; J2405; J2543; J2550; J3475; J3480; J7050; J7620; S0028

== ENCOUNTER 2018-11-08 12:59 | Outpatient (CLI) | payer MEDICARE ==
--- NOTE | 2018-11-08 15:17 | ULT ---
LEFT LOWER EXTREMITY VENOUS DOPPLER: 11/08/2018 PROVIDED CLINICAL HISTORY: Left lower leg pain. FINDINGS: Torres-scale and color Doppler sonography with spectral analysis was performed of the left common femor al, femoral, popliteal, posterior tibial, greater saphenous, and profunda femoral veins, demonstratin g a normal sonographic appearance to each. IMPRESSION: No sonographic evidence for left lower extremity deep venous thrombosis. POS: [facility]
== END 2018-11-08 13:00 | disposition home or self-care (01) ==
LOC: SCSULT 12:59
PROVIDERS: ATTEND Family Medicine
DX: M79.662 Pain in left lower leg (principal); N39.0 Urinary tract infection, site not specified
CPT/HCPCS: 81003; 82043; 87086

== ENCOUNTER 2019-07-07 15:50 | Emergency (ER) | payer MEDICARE ==
[2019-07-07] MEDS ORDERED: predniSONE 20 MG TAB ONE (16:36)
[2019-07-07] MEDS ORDERED: traMADol HCl 50 MG TAB ONE (16:51)
== END 2019-07-07 17:20 | disposition home or self-care (01) ==
LOC: ERS 15:50
DX: M62.830 Muscle spasm of back (principal); I10 Essential (primary) hypertension; Z79.899 Other long term (current) drug therapy
CPT/HCPCS: 99283; J7512

== ENCOUNTER 2019-11-09 05:22 | Inpatient (IN) | payer MEDICARE ==
[2019-11-09 06:04] LABS: #Eosinphils 0.1 thou/uL (0.0-0.7); #Lymphocytes 2.2 thou/uL (1.20-3.40); #Monocytes 1.2 thou/uL (0.11-0.59); #Neutrophils 8.7 thou/uL (1.40-6.50); %Basophils 0.2 % (0.0-1.0); %Eosinophils 1.1 % (0.0-10.0); %Lymphocytes 17.9 % (21.0-51.0); %Monocytes 9.6 % (0.0-10.0); %Neutrophils 71.2 % (42.0-75.0); Mean Corpuscular HGB CONC 31.7 g/dL (32.0-36.0); Mean Corpuscular Hemoglobin 28.1 pg (27.0-31.0); Mean Corpuscular Volume 88.6 fL (78.0-98.0); Mean Platelet Volume 8.5 fL (7.4-10.4); Platelet Count 256 thou/uL (130-400); RBC Distribution Width 12.3 % (11.5-14.5); Red Blood Cell (RBC) Count 4.98 mill/uL (4.20-5.40); White Blood Cell (WBC) Count 12.3 thou/uL (4.8-10.8)
[2019-11-09 06:07] LABS: PTT 30.1 SEC (22.9-36.1); Prothrombin Time 13.6 SEC (12.0-14.7)
[2019-11-09 06:16] LABS: Bacteria/HPF 4+ HPF (None Seen); Bilirubin Negative (Negative); Blood, Urine 2+ (Negative); Clarity Extra Turbid (Clear); Glucose, Urine (Dipstick) Normal (Negative); Leukocyte 500 Leu/uL (Negative); Nitrite Negative (Negative); Protein, Urine (Dipstick) 50 mg/dL (Neg-Trace); Squamous Epithelial 0-3 HPF (0-3); Urobilinogen Normal mg/dL (Less than 2); WBC/HPF Greater than 50 HPF (0-3)
[2019-11-09 06:23] LABS: ALT (SGPT) 13 U/L (8-55); AST (SGOT) 12 U/L (5-34); Albumin 3.9 g/dL (3.4-4.8); Alkaline Phosphatase 127 U/L (40-110); Anion Gap 12 mmol/L (10-20); BUN (Urea Nitrogen) 16 mg/dL (9.8-20.1); Bilirubin, Total 0.6 mg/dL (0.2-1.2); Calc. Creatinine Clearance 0 mL/min (70-130); Calcium 10.4 mg/dL (7.8-10.44); Carbon Dioxide 25 mmol/L (23-31); Chloride 108 mmol/L (98-107); Estimated GFR-MDRD 38; Globulin 3.2 g/dL (2.4-3.5); Glucose 100 mg/dL (83-110); Magnesium 1.6 mg/dL (1.6-2.6); Potassium 4.5 mmol/L (3.5-5.1); Protein, Total 7.1 g/dL (6.0-8.3); Sodium 140 mmol/L (136-145)
[2019-11-09] MEDS ORDERED: Diltiazem 125 MG in Sodium Chloride 0.9% 100 ML IVPB SCH (06:30)
--- NOTE | 2019-11-09 08:10 | RAD ---
Portable frontal chest radiograph: 11/09/2019 COMPARISON: 09/05/2018 HISTORY: Tachycardia FINDINGS: Cardiac silhouette appears enlarged. No pneumothorax or pleural fluid. No focal consolidati on or alveolar edema. Postoperative clips are noted in the left axillary region. There is atherosclerotic calcification of the lower thoracic and upper abdominal aorta as well as the aortic a rch. IMPRESSION: Chronic findings as above. No focal consolidation or alveolar edema.
[2019-11-09] MEDS ORDERED: Levofloxacin 500 mg/D5W 100 ml Premix Bag ONE (09:05)
[2019-11-09 09:16] LABS: Troponin I 0.018 ng/mL (< 0.028)
[2019-11-09] MEDS ORDERED: Labetalol HCl 100 MG/20 ML VIAL SLOW IVP PRN (11:18)
[2019-11-09] MEDS ORDERED: Ondansetron PF 4 MG/2 ML Vial IVP PRN (11:18)
[2019-11-09] MEDS ORDERED: Acetaminophen 500 MG TAB PO PRN (11:18)
[2019-11-09] MEDS ORDERED: hydrALAZINE 20 MG/ML VIAL SLOW IVP PRN (11:18)
[2019-11-09] MEDS ORDERED: Ondansetron ODT 4 MG TAB PO PRN (11:18)
--- NOTE | 2019-11-09 12:03 | HP ---
PRIMARY CARE PROVIDER: Wolfgang Fair MD CHIEF COMPLAINT: Dysuria and tachycardia. HISTORY OF PRESENT ILLNESS: This is an 84-year-old female, who presents to [facility] via EMS personnel complaining of palpitations and difficulty sleeping with urinary urgency and frequency. The patient with significant history of recurrent urinary tract infections with multiple urine cultures consistent with Escherichia coli over the last year. The patient recently completed a prescription with Omnice[employer] for UTI prescribed by her primary care provider. The patient denied any documented fever or chills, but complained of general body aches. The patient's history is significant for a previous CVA with residual left-sided weakness with a history of multiple falls according to the daughter. The patient mainly ambulates with a wheelchair currently and receives 24-hour care due to her ambulatory status and need for supervision. The patient denied any makayla chest pain, shortness of breath, or cough. The patient does have some cough related to difficulty with controlling her secretions in the context of her previous CVA. The family reports the patient has had intermittent episodes of irregular heartbeat in 2018, but no formal diagnosis of atrial fibrillation or directed treatment. The patient does take aspirin 81 mg chronically. In the emergency room, the patient underwent general evaluation with EKG showing atrial fibrillation with heart rates in the one teens. The patient was given IV fluids with normal saline and initiated on a Cardizem infusion with overall rate improvement with heart rates in the 80s to 90s. The family reports the patient was also recently increased on home Bystolic from 10 mg to 20 mg after the patient was noted with increased tachycardia. PAST MEDICAL HISTORY: 1. Hypertension. 2. CVA with residual left hemiparesis. 3. 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 4. Peripheral neuropathy. 5. History of falls. 6. Breast cancer. 7. Chronic kidney disease, stage 3. PAST SURGICAL HISTORY: 1. Status post hysterectomy. 2. Status post bilateral mastectomy. 3. Status post tonsillectomy. 4. Status post cataract removal. CURRENT MEDICATIONS: 1. Bystolic 20 mg p.o. daily. 2. Tramadol 50 mg p.o. q.6 hours p.r.n. 3. Aspirin 81 mg p.o. daily. 4. Omeprazole 40 mg p.o. daily. 5. Flexeril 10 mg p.o. daily p.r.n. 6. Potassium chloride 20 mEq p.o. daily. ALLERGIES: IBUPROFEN AND MACROBID. FAMILY HISTORY: Brother with chronic kidney disease and sister with diabetes mellitus. SOCIAL HISTORY: Resides in [place], [place]. Accompanied by her family in the emergency room. No current alcohol, tobacco, or illicit drug use. Mobilizes with a wheelchair. Multiple falls reported by family members. Receives 24-hour care. Surrogate medical decision maker is the patient's son, who is medical power of asbestos removal worker. REVIEW OF SYSTEMS: CONSTITUTIONAL: Negative for weight loss or gain, ability to conduct usual activities. SKIN: Negative for rash, itching. EYES: Negative for double vision, pain. ENT/MOUTH: Negative for nose bleeding, neck stiffness, pain, tenderness. CARDIOVASCULAR: Negative for palpitations, dyspnea on exertion, orthopnea. RESPIRATORY: Negative for shortness of breath, wheezing, cough, hemoptysis, fever or night sweats. GASTROINTESTINAL: Negative for poor appetite, abdominal pain, heartburn, nausea, vomiting, constipation, or diarrhea. GENITOURINARY: Negative for urgency, frequency, dysuria, nocturia. MUSCULOSKELETAL: Negative for pain, swelling. NEUROLOGIC/PSYCHIATRIC: Negative for anxiety, depression. ALLERGY/IMMUNOLOGIC: Negative for skin rash, bleeding tendency. Otherwise, negative except as stated per HPI. PHYSICAL EXAMINATION: VITAL SIGNS: On admission, blood pressure 153/87, pulse 117, respiratory rate 18, temperature 98.3 degrees Fahrenheit, and O2 saturation 96% on room air. GENERAL APPEARANCE: This is an 84-year-old female, smiling, alert, responsive, in no acute distress. HEENT: Pupils are equal, round, and reactive to light and accommodation. Extraocular muscles are intact. No scleral icterus. No conjunctival injection. Nares are patent. OP is clear. Teeth in fair repair. NECK: Supple. No cervical adenopathy. No thyromegaly. No JVD. No meningeal signs noted. CHEST: Lungs are clear to auscultation bilaterally. CARDIOVASCULAR: S1 and S2 with regular rate and rhythm. No murmur, rub, or gallop appreciated. ABDOMEN: Rounded, soft, nontender, and nondistended. Bowel sounds are positive in all 4 quadrants. No palpable mass. EXTREMITIES: Warm and dry with fair turgor. No clubbing, cyanosis, or asymmetric edema appreciated. Pulses palpable distally at the dorsalis pedis, posterior tibial, and popliteal arteries bilaterally. Capillary refill less than 2 seconds. NEUROLOGIC: Positive dysarthria, chronic. Left hemiparesis, chronic. Not observed ambulatory during this exam. Rest of the cranial nerves II through XII are grossly intact. PERTINENT LABORATORY AND X-RAY FINDINGS: Sodium 140, potassium 4.5, chloride 108, CO2 of 25, BUN 16, creatinine 1.34, estimated GFR of 38, glucose 100, calcium 10.4, magnesium 1.6, and alkaline phosphatase 127. Troponin I negative x2. TSH 0.68. CBC showed a white blood cell count of 12.3, hemoglobin 14, hematocrit 44, and platelet count 256 with 71% neutrophils. PT 13.6, INR 1.0, and PTT 30.1. Urinalysis positive for blood and leukocyte esterase with 11 to 20 rbc's per high-power field and greater than 50 to [id number] wbc's per high-power field. Portable chest x-ray dated 11/09/2019 showed no acute cardiopulmonary process. EKG dated 11/09/2019 by my interpretation shows atrial fibrillation with rapid ventricular response in the low one teens. Attenuated R-waves noted in the precordial leads. Left axis deviation. ASSESSMENT AND PLAN: 1. Atrial fibrillation with rapid ventricular response. Questionable new onset versus subacute. Continue Cardizem infusion at 10 mg/hour. Continue rate control strategy. Check 2D transthoracic echocardiogram for valvular function and chamber dimensions. Consult Cardiology Service for any further medical management or recommendations. Continue aspirin 81 mg daily. Not a candidate for anticoagulation given history of multiple falls and advanced age. Check magnesium level in the a.m. 2. Urinary tract infection. Continue Rocephin 2 g IV q.24 hours. Await final urine culture results. Previous history of Escherichia coli species. 3. Chronic kidney disease, stage 3. Continue intravenous normal saline at 75 mL/h. Avoid nephrotoxic agents. Limit contrast exposure. Repeat creatinine in the a.m. 4. Hypertension. Continue serial blood pressure monitoring. Resume home blood pressure medication regimen. IV hydralazine and labetalol p.r.n. systolic blood pressure greater than or equal to 170. 5. Left hemiparesis and dysarthria. Chronic conditions in the context of previous CVA. We will continue fall risk precautions. Continue aspirin 81 mg daily. 6. Prophylaxis. SCDs while in bed. Pepcid 20 mg p.o. b.i.d. PT evaluation for functional assessment. 7. Code status, do not attempt resuscitation confirmed by medical power of asbestos removal worker, which is the patient's son. Job ID: [id number]
[2019-11-09 12:08] LABS: Troponin I 0.018 ng/mL (< 0.028)
[2019-11-09] MEDS ORDERED: cefTRIAXone\\ROCEPHIN 2 GM VIAL ONE (12:43)
[2019-11-09] MEDS: cefTRIAXone\\ROCEPHIN 2 GM in Sodium Chloride 0.9% 100 ML IVPB SCH (12:50)
[2019-11-09] MEDS: Sodium Chloride 0.9% 1,000 ML IV SCH (13:45)
[2019-11-09 16:29] VITALS: BMI 25.7
[2019-11-09] MEDS: Magnesium Oxide 400 MG TAB PO SCH (20:50)
[2019-11-09] MEDS ORDERED: Famotidine 20 MG TAB PO SCH (21:00)
[2019-11-09] MEDS ORDERED: Cyclobenzaprine 10 MG TAB PO SCH (21:30)
[2019-11-10] MEDS: Diltiazem 125 MG in Sodium Chloride 0.9% 100 ML IVPB SCH ×2 (01:44→21:10)
[2019-11-10 04:36] LABS: Anion Gap 12 mmol/L (10-20); BUN (Urea Nitrogen) 13 mg/dL (9.8-20.1); Calc. Creatinine Clearance 42 mL/min (70-130); Calcium 9.2 mg/dL (7.8-10.44); Carbon Dioxide 17 mmol/L (23-31); Chloride 112 mmol/L (98-107); Estimated GFR-MDRD 48; Glucose 93 mg/dL (83-110); Magnesium 1.5 mg/dL (1.6-2.6); Potassium 4.1 mmol/L (3.5-5.1); Sodium 137 mmol/L (136-145)
[2019-11-10] MEDS: Sodium Chloride 0.9% 1,000 ML IV SCH (04:39)
[2019-11-10 05:24] LABS: Hemoglobin 12.5 g/dL (12.0-16.0); Mean Corpuscular HGB CONC 33.2 g/dL (32.0-36.0); Mean Corpuscular Hemoglobin 29.6 pg (27.0-31.0); Mean Corpuscular Volume 89.4 fL (78.0-98.0); Mean Platelet Volume 7.8 fL (7.4-10.4); Platelet Count 227 thou/uL (130-400); RBC Distribution Width 12.3 % (11.5-14.5); White Blood Cell (WBC) Count 9.8 thou/uL (4.8-10.8)
[2019-11-10 06:11] LABS: Band 6 % (5-11); Lymphocytes 25 % (21-51); MDiff Complete? YES; Monocytes 9 % (0-10); Neutrophil 60 % (42-75); Platelet Morphology Comment Appears Adequate; RBC Morphology Normal
[2019-11-10] MEDS: Amlodipine 10 MG TAB PO SCH (08:30)
[2019-11-10] MEDS: Aspirin Chewable 81 MG TAB PO SCH (08:30)
[2019-11-10] MEDS: Magnesium Oxide 400 MG TAB PO SCH ×2 (08:30→20:59)
[2019-11-10] MEDS: cefTRIAXone\\ROCEPHIN 2 GM in Sodium Chloride 0.9% 100 ML IVPB SCH (11:42)
[2019-11-10] MEDS ORDERED: traMADol HCl 50 MG TAB PO PRN ×2 (12:14→12:18)
--- NOTE | 2019-11-10 18:08 | PDOC.HOSPP ---
- Subjective Subjective: Seen and examined on the medical unit with telemetry. Patient breathing comfortably on room air. Patient with atrial fibrillation who is currently on diltiazem drip. Patient has history of CVA, several per family. Patient has not been formally diagnosed with atrial fibrillation in the past, however they do describe several episodes of racing heartbeats and increasing beta kin doses per primary care physician. Patient denies pain. She denies palpitations. She deny shortness of breath. She asks me when she can go home. Family at bedside, time was given for questions, all answered in detail. - Objective Vital Signs & Weight: Vital Signs (12 hours) Temp Pulse Resp BP Pulse Ox 11/10/19 11:46 97.7 F 88 16 135/64 95 11/10/19 08:25 98.7 F 80 16 139/67 95 Weight Weight 158 lb 3 oz I&O: 11/09/19 11/10/19 11/11/19 06:59 06:59 06:59 Intake Total 300 Output Total 600 Balance -300 Result Diagrams: 11/10/19 05:05 11/10/19 04:04 Radiology Reviewed by me: Yes Hospitalist ROS - Review of Systems All other systems reviewed; all pertinent +/- noted in HPI/Subj - Medication Medications: Active Medications Generic Name Dose Route Start Last Admin Trade Name Freq PRN Reason Stop Dose Admin Amlodipine Besylate 10 mg 11/10/19 09:00 11/10/19 08:30 Norvasc PO 10 mg DAILY [facility] Administration Aspirin 81 mg 11/10/19 09:00 11/10/19 08:30 Aspirin Chewable PO 81 mg DAILY [facility] Administration Diltiazem HCl 125 mg/ Sodium 125 mls @ 7.5 mls/hr 11/09/19 11:18 11/10/19 01: 44 Chloride IVPB 125 mls INF [facility] Administration Protocol 7.5 MG/HR Ceftriaxone Sodium 2 gm/ 100 mls @ 200 mls/hr 11/09/19 12:00 11/10/19 11:42 Sodium Chloride IVPB 100 mls Q24HR [facility] Administration Magnesium Oxide 400 mg 11/09/19 21:00 11/10/19 08:30 Magnesium Oxide PO 400 mg BID [facility] Administration Sodium Chloride 10 ml 11/10/19 09:00 11/10/19 08:30 Flush - Normal Saline IVF 10 ml Q12HR [facility] Administration - Exam General Appearance: NAD, awake alert Eye: PERRL ENT: normocephalic atraumatic, moist mucosa Neck: supple, symmetric, no lymphadenopathy Heart: no murmur, no gallops, no rubs, irregular Respiratory: CTAB, no wheezes, no rales, no ronchi, normal chest expansion, no tachypnea Gastrointestinal: soft, non-tender, no guarding, no rigidity Extremities: 1+ LE edema Skin: no lesions, no rashes Neurological: cranial nerve grossly intact, no new deficit Musculoskeletal: generalized weakness Psychiatric: oriented to person, oriented to place Hosp A/P (1) Atrial fibrillation with rapid ventricular response Code(s): I48.91 - UNSPECIFIED ATRIAL FIBRILLATION Status: Acute (2) UTI (urinary tract infection) Status: Acute (3) BA (acute kidney injury) Code(s): N17.9 - ACUTE KIDNEY FAILURE, UNSPECIFIED Status: Acute (4) Generalized weakness Code(s): R53.1 - WEAKNESS Status: Acute (5) Physical deconditioning Code(s): R53.81 - OTHER MALAISE Status: Acute (6) Volume overload Code(s): E87.70 - FLUID OVERLOAD, UNSPECIFIED Status: Acute (7) Essential (primary) hypertension Code(s): I10 - ESSENTIAL (PRIMARY) HYPERTENSION Status: Chronic (8) H/O TIA (transient ischemic attack) and stroke Code(s): Z86.73 - PRSNL HX OF TIA (TIA), AND CEREB INFRC W/O RESID DEFICITS Status: Chronic (9) H/O malignant neoplasm of breast Code(s): Z85.3 - PERSONAL HISTORY OF MALIGNANT NEOPLASM OF BREAST Status: Chronic (10) Diastolic congestive heart failure Code(s): I50.30 - UNSPECIFIED DIASTOLIC (CONGESTIVE) HEART FAILURE Status: Suspected - Plan Plan: medical unit with telemetry cardiology consultation, recommendations appreciated IV diltiazem control heart rate less than 110 bpm anticoagulation considered, though elevated fall risk and high risk of bleeding echocardiogram IV ABX for UTI, will transition to oral on D/c continue with her home medications is able blood pressure control blood sugar control G.I. prophylaxis DVT prophylaxis
[2019-11-10] MEDS: Enoxaparin Sodium 80 MG/0.8 ML SYRINGE SC SCH (20:57)
[2019-11-10] MEDS: Famotidine 20 MG TAB PO SCH (20:59)
--- NOTE | 2019-11-10 22:41 | CON ---
DATE OF CONSULTATION: PRIMARY SPEEDER MACHINE OPERATOR: Gerald Lopez MD REASON FOR CONSULTATION: Atrial fibrillation. HISTORY OF PRESENT ILLNESS: Ms. Huitron is a pleasant 84-year-old woman. She recently developed urinary tract infection. She was brought to the emergency room. She was found to have urinary tract infection and atrial fibrillation with a rapid rate. She has been maintained on intravenous diltiazem with a well controlled rate. The patient is feeling better now. She is sitting up in the chair. No complaints. No chest pain or pressure. No heaviness or squeezing. PAST MEDICAL HISTORY: She has a history of atrial tachycardia in the past with urinary tract infection. No chest pain or pressure as mentioned. MEDICATIONS: At home, she was takin. Tramadol. 2. Aspirin. 3. Potassium. 4. Magnesium. 5. Bystolic. ALLERGIES: TO CEFAZOLIN AND NITROFURANTOIN. SOCIAL HISTORY: No alcohol or tobacco. CODE STATUS: She prefers do not resuscitate. REVIEW OF SYSTEMS: Otherwise, negative. FAMILY HISTORY: Negative for heart disease at a young age. PHYSICAL EXAMINATION: GENERAL: This is a pleasant elderly woman, in no distress. VITAL SIGNS: Blood pressure is 135/64, pulse 80 to 90, it is irregularly irregular. HEENT: Eyes; sclerae nonicteric. Mouth; mucous membranes moist. NECK: Supple. No lymphadenopathy. LUNGS: Clear. CARDIAC: Irregularly irregular. ABDOMEN: Soft and nontender. EXTREMITIES: Warm and dry. No clubbing, cyanosis or edema. LABORATORY DATA: EKG initially showed atrial fibrillation with rapid rate, now atrial fibrillation with controlled rate. Potassium 4.5 troponin 0.022, TSH 0.678. Echocardiogram is pending. ASSESSMENT: 1. Atrial fibrillation with initially rapid rate, now controlled rate. 2. Urinary tract infection with positive urine culture, strep agalactiae. PLAN: 1. She is getting antibiotics. 2. Intravenous diltiazem. 3. Anticoagulate with enoxaparin. 4. If she maintains a fibrillation, consideration for transesophageal echo and cardioversion. Job ID: [id number]
[2019-11-10] MEDS ORDERED: Lorazepam 0.5 MG TAB PO SCH (23:30)
[2019-11-10] MEDS: Cyclobenzaprine 10 MG TAB PO PRN (23:33)
--- NOTE | 2019-11-11 09:19 | PDOC.CPN ---
- Subjective Date: 11/11/19 Time: 09:45 Interval history: Ms. Huitron is awake, sitting up in bed with her family at bedside. No acute complaints or concerns. Denies chest pain or tightness, denies shortness of breath. Intermittent swelling to legs per daughter. She has some swallowing residual deficit from her CVA years ago, occasionally coughs, more when eating/ drinking. Reviewed echo results, remains in AFib, rate improved. Discussed consideration for BRO/CV in am, family requests consult with , he is family friend. No overnight events on telemetry, noted with 2.1, 1.8 second pause this morning. - Review of Systems General: denies: fever/chills, weight/appetite/sleep changes, night sweats, fatigue Respiratory: denies: cough, congestion, shortness of breath, exercise intolerance Cardiovascular: reports: edema. denies: chest pain, palpitation, paroxysmal nocturnal dyspnea, orthopnea Gastrointestinal: denies: nausea, vomiting, diarrhea, constipation, abd pain, GI bleeding Musculoskeletal: denies: pain, tenderness, stiffness, swelling, arthritis/ arthralgias - Objective Allergies/Adverse Reactions: Allergies Allergy/AdvReac Type Severity Reaction Status Date / Time cefazolin [From Ancef] Allergy Intermediate Rash Verified 09/23/16 13:53 ibuprofen Allergy NOT SURE Verified 09/23/16 13:14 OF REACTION nitrofurantoin Allergy Verified 08/17/18 00:40 [From Macrobid] Visit Medications: Current Medications Acetaminophen (Tylenol) 1,000 mg PO Q6H PRN PRN Reason: Mild Pain (1-3) Amlodipine Besylate (Norvasc) 10 mg PO DAILY [facility] Last Admin: 11/10/19 08:30 Dose: 10 mg Aspirin (Aspirin Chewable) 81 mg PO DAILY [facility] Last Admin: 11/10/19 08:30 Dose: 81 mg Cyclobenzaprine HCl (Flexeril) 5 mg PO TIDPRN PRN PRN Reason: Muscle Spasm Last Admin: 11/10/19 23:33 Dose: 5 mg Diltiazem HCl (Cardizem) 30 mg PO Q6HR PRN PRN Reason: HR >120 sustained Enoxaparin Sodium (Lovenox) 70 mg SC 0900,2100 [facility] Last Admin: 11/10/19 20:57 Dose: 70 mg Famotidine (Pepcid) 20 mg PO QPM [facility] Last Admin: 11/10/19 20:59 Dose: 20 mg Hydralazine HCl (Apresoline) 10 mg SLOW IVP Q4H PRN PRN Reason: SBP > 180 and HR < 70 Diltiazem HCl 125 mg/ Sodium (Chloride) 125 mls @ 7.5 mls/hr IVPB INF [facility]OOKS; Protocol Last Admin: 11/10/19 21:10 Dose: 125 mls Ceftriaxone Sodium 2 gm/ (Sodium Chloride) 100 mls @ 200 mls/hr IVPB Q24HR [facility] Last Admin: 11/10/19 11:42 Dose: 100 mls Labetalol HCl (Normodyne) 20 mg SLOW IVP Q4H PRN PRN Reason: SBP > 180 and HR >/= 70 Magnesium Oxide (Magnesium Oxide) 400 mg PO BID [facility] Last Admin: 11/10/19 20:59 Dose: 400 mg Ondansetron HCl (Zofran Odt) 4 mg PO Q6H PRN PRN Reason: Nausea/Vomiting Ondansetron HCl (Zofran) 4 mg IVP Q6H PRN PRN Reason: Nausea/Vomiting Sodium Chloride (Flush - Normal Saline) 10 ml IVF Q12HR [facility] Last Admin: 11/11/19 00:26 Dose: Not Given Sodium Chloride (Flush - Normal Saline) 10 ml IVF PRN PRN PRN Reason: Saline Flush Tramadol HCl (Ultram) 50 mg PO Q4H PRN PRN Reason: Moderate Pain (4-6) Tramadol HCl (Ultram) 100 mg PO Q4H PRN PRN Reason: Severe Pain (7-10) Last Admin: 11/10/19 23:33 Dose: 100 mg Vital Signs & Weight: Vital Signs Temp Pulse Resp BP BP Pulse Ox 11/11/19 08:03 97.6 F 71 16 113/56 L 94 L 11/11/19 04:00 72 107/59 L 11/11/19 00:00 97.8 F 97 16 123/92 H 97 Weight 159 lb 9 oz - CHADS-VASc Congestive heart failure: 1 Hypertension: 1 Age >75: 2 Stroke/TIA/thrombo-embolism: 2 Female: 1 Risk Score: 7 - Quality Measures Condition: Atrial Fibrillation/Flutter (hx or current) CV meds: Beta Dimitrios: No (On home BB), MARY/ARB: No, Statin: No, ASA: Yes, Plavix/Effient/Brilinta: No, Anticoagulant: No - Physical Exam General: alert & oriented x3, appears well, no apparent distress, other ( residual speech deficit, able to make needs known) HEENT: mucus membranes moist Neck: supple neck, no JVD/HJR Cardiac: no murmur, irregularly regular Lungs: clear to auscultation, scattered rhonchi Neuro: grossly intact Abdomen: active bowel sounds, soft Extremities: 1+ LE edema Skin: clear - Labs Result Diagrams: 11/11/19 09:57 11/11/19 09:57 Troponin/CKMB Troponin I 0.018 ng/mL (< 0.028) 11/09/19 11:33 - Telemetry Supraventricular conduction: atrial fibrillation - Assessment/Plan Assessment/Plan: 1. AFib with RVR-new onset 2. HFpEF-chronic 3. CKD Stage 3 4. MR-mild, mild to moderate LAE per echo yesterday 3. UTI 3. History of CVA Remains AFib on diltiazem gtt, rate 60s, occasionally 50s, noted with 2.1, 1.8 second pause. Discussed consideration for BRO/CV in am, family has discussed case with Dr. aLboy and requests consult. History of CVA, patient has historically declined OAC. Await EP consult. D/C cardizem gtt for now.
[2019-11-11] MEDS: Amlodipine 10 MG TAB PO SCH (10:04)
[2019-11-11] MEDS: Aspirin Chewable 81 MG TAB PO SCH (10:04)
[2019-11-11] MEDS: Enoxaparin Sodium 80 MG/0.8 ML SYRINGE SC SCH ×2 (10:05→21:47)
[2019-11-11] MEDS: Magnesium Oxide 400 MG TAB PO SCH ×2 (10:12→21:46)
[2019-11-11 10:27] LABS: Hemoglobin 13.1 g/dL (12.0-16.0); Platelet Count 228 thou/uL (130-400)
[2019-11-11] MEDS: cefTRIAXone\\ROCEPHIN 2 GM in Sodium Chloride 0.9% 100 ML IVPB SCH (12:57)
--- NOTE | 2019-11-11 14:33 | PDOC.HOSPP ---
- Subjective Subjective: Seen and examined on the medical unit with telemetry. Family at bedside able to aid in history. Patient had a rough time falling asleep, though when she was given symptomatic medications she slept well. On diltiazem drip this morning. Questions were asked concerning cardioversion, all answered in detail. Further plan of care per cardiology. - Objective Vital Signs & Weight: Vital Signs (12 hours) Temp Pulse Resp BP BP Pulse Ox 11/11/19 11:25 97.5 F L 78 15 136/60 93 L 11/11/19 08:03 97.6 F 71 16 113/56 L 93 L 11/11/19 04:00 72 107/59 L Weight Weight 159 lb 9 oz I&O: 11/10/19 11/11/19 11/12/19 06:59 06:59 06:59 Intake Total 300 1270 Output Total 600 200 500 Balance -300 1070 -500 Result Diagrams: 11/11/19 09:57 11/11/19 09:57 Radiology Reviewed by me: Yes Hospitalist ROS - Review of Systems All other systems reviewed; all pertinent +/- noted in HPI/Subj - Medication Medications: Active Medications Generic Name Dose Route Start Last Admin Trade Name Freq PRN Reason Stop Dose Admin Amlodipine Besylate 10 mg 11/10/19 09:00 11/11/19 10:04 Norvasc PO 10 mg DAILY [facility] Administration Aspirin 81 mg 11/10/19 09:00 11/11/19 10:04 Aspirin Chewable PO 81 mg DAILY [facility] Administration Cyclobenzaprine HCl 5 mg 11/10/19 12:12 11/10/19 23:33 Flexeril PO 5 mg TIDPRN PRN Administration Muscle Spasm Enoxaparin Sodium 70 mg 11/10/19 21:00 11/11/19 10:05 Lovenox SC 70 mg 0900,2100 [facility] Administration Famotidine 20 mg 11/10/19 21:00 11/10/19 20:59 Pepcid PO 20 mg QPM [facility] Administration Ceftriaxone Sodium 2 gm/ 100 mls @ 200 mls/hr 11/09/19 12:00 11/11/19 12:57 Sodium Chloride IVPB 100 mls Q24HR [facility] Administration Magnesium Oxide 400 mg 11/09/19 21:00 11/11/19 10:12 Magnesium Oxide PO 400 mg BID [facility] Administration Sodium Chloride 10 ml 11/10/19 09:00 11/11/19 10:12 Flush - Normal Saline IVF Not Given Q12HR [facility] Tramadol HCl 100 mg 11/10/19 12:18 11/10/19 23:33 Ultram PO 100 mg Q4H PRN Administration Severe Pain (7-10) - Exam General Appearance: NAD, awake alert Eye: anicteric sclera ENT: normocephalic atraumatic, moist mucosa Neck: supple, symmetric Heart: no murmur, no gallops, no rubs, irregular Respiratory: no wheezes, no rales, no ronchi, no tachypnea Gastrointestinal: soft, non-tender, no guarding, no rigidity Extremities: no edema Skin: no lesions, no rashes Neurological: cranial nerve grossly intact, no new deficit Neurological - other findings: Old CVA mild residual def Musculoskeletal: generalized weakness Psychiatric: oriented to person, oriented to place Hosp A/P (1) Atrial fibrillation with rapid ventricular response Code(s): I48.91 - UNSPECIFIED ATRIAL FIBRILLATION Status: Acute (2) UTI (urinary tract infection) Status: Acute (3) BA (acute kidney injury) Code(s): N17.9 - ACUTE KIDNEY FAILURE, UNSPECIFIED Status: Acute (4) Generalized weakness Code(s): R53.1 - WEAKNESS Status: Acute (5) Physical deconditioning Code(s): R53.81 - OTHER MALAISE Status: Acute (6) Volume overload Code(s): E87.70 - FLUID OVERLOAD, UNSPECIFIED Status: Acute (7) Essential (primary) hypertension Code(s): I10 - ESSENTIAL (PRIMARY) HYPERTENSION Status: Chronic (8) H/O TIA (transient ischemic attack) and stroke Code(s): Z86.73 - PRSNL HX OF TIA (TIA), AND CEREB INFRC W/O RESID DEFICITS Status: Chronic (9) H/O malignant neoplasm of breast Code(s): Z85.3 - PERSONAL HISTORY OF MALIGNANT NEOPLASM OF BREAST Status: Chronic (10) Diastolic congestive heart failure Code(s): I50.30 - UNSPECIFIED DIASTOLIC (CONGESTIVE) HEART FAILURE Status: Suspected - Plan Plan: medical unit with telemetry cardiology consultation, recommendations appreciated IV diltiazem, wean as able control heart rate less than 110 bpm anticoagulation per cardiology, though elevated fall risk and high risk of bleeding echocardiogram IV ABX for UTI, will transition to oral on D/c continue with her home medications is able blood pressure control blood sugar control G.I. prophylaxis DVT prophylaxis Disposition: May consider BRO with cardioversion vs medical management. Family deciding next plan of care with cardiology.
[2019-11-11] MEDS ORDERED: Melatonin 3 MG TAB PO PRN (14:35)
[2019-11-11] MEDS ORDERED: diphenhydrAMINE 25 MG CAP PO PRN (14:35)
[2019-11-11] MEDS: Famotidine 20 MG TAB PO SCH (21:46)
--- NOTE | 2019-11-12 08:15 | PDOC.HOSPP ---
- Subjective Encounter Date: 11/12/19 Encounter Time: 11:00 Subjective: Patient with some SOB with talking some times. No other complaints. Never notices palpitations from the Afib. - Objective Vital Signs & Weight: Vital Signs (12 hours) Temp Pulse Resp BP BP Pulse Ox 11/12/19 07:45 98.7 F 124 H 18 140/96 H 96 11/12/19 03:15 97.6 F 109 H 20 141/79 H 96 Weight Weight 158 lb 14.4 oz I&O: 11/11/19 11/12/19 11/13/19 06:59 06:59 06:59 Intake Total 1270 1530 Output Total 200 2600 Balance 1070 -1070 Result Diagrams: 11/11/19 09:57 11/11/19 09:57 EKG Reviewed by me: Yes (afib, RVR this AM) Hospitalist ROS - Review of Systems Constitutional: denies: fever, chills Respiratory: reports: shortness of breath. denies: cough Cardiovascular: denies: chest pain, palpitations, edema Gastrointestinal: denies: nausea, vomiting, abdominal pain - Medication Medications: Active Medications Generic Name Dose Route Start Last Admin Trade Name Freq PRN Reason Stop Dose Admin Acetaminophen 1,000 mg 11/09/19 11:18 11/12/19 05:35 Tylenol PO 1,000 mg Q6H PRN Administration Mild Pain (1-3) Amlodipine Besylate 10 mg 11/10/19 09:00 11/11/19 10:04 Norvasc PO 10 mg DAILY [facility] Administration Aspirin 81 mg 11/10/19 09:00 11/11/19 10:04 Aspirin Chewable PO 81 mg DAILY [facility] Administration Cyclobenzaprine HCl 5 mg 11/10/19 12:12 11/10/19 23:33 Flexeril PO 5 mg TIDPRN PRN Administration Muscle Spasm Enoxaparin Sodium 70 mg 11/10/19 21:00 11/11/19 21:47 Lovenox SC 70 mg 0900,2100 [facility] Administration Famotidine 20 mg 11/10/19 21:00 11/11/19 21:46 Pepcid PO 20 mg QPM [facility] Administration Ceftriaxone Sodium 2 gm/ 100 mls @ 200 mls/hr 11/09/19 12:00 11/11/19 12:57 Sodium Chloride IVPB 100 mls Q24HR [facility] Administration Magnesium Oxide 400 mg 11/09/19 21:00 11/11/19 21:46 Magnesium Oxide PO 400 mg BID [facility] Administration Sodium Chloride 10 ml 11/10/19 09:00 11/11/19 21:48 Flush - Normal Saline IVF 10 ml Q12HR [facility] Administration Tramadol HCl 100 mg 11/10/19 12:18 11/10/19 23:33 Ultram PO 100 mg Q4H PRN Administration Severe Pain (7-10) - Exam General Appearance: NAD, awake alert ENT: moist mucosa Heart: no murmur, no gallops, no rubs, irregular Heart - other findings: tachycardic Respiratory: CTAB, no wheezes, no rales, no ronchi Gastrointestinal: soft, non-tender, non-distended, normal bowel sounds Extremities: no edema Neurological - other findings: slurred speech, keeps neck cocked to the right Psychiatric: normal affect, normal behavior, A&O x 3 Hosp A/P (1) Atrial fibrillation with rapid ventricular response Code(s): I48.91 - UNSPECIFIED ATRIAL FIBRILLATION Status: Acute (2) Essential (primary) hypertension Code(s): I10 - ESSENTIAL (PRIMARY) HYPERTENSION Status: Chronic (3) Diastolic congestive heart failure Code(s): I50.30 - UNSPECIFIED DIASTOLIC (CONGESTIVE) HEART FAILURE Status: Chronic (4) Chronic kidney disease Code(s): N18.9 - CHRONIC KIDNEY DISEASE, UNSPECIFIED Status: Chronic Qualifiers: Chronic kidney disease stage: stage 3 (moderate) Qualified Code(s): N18.3 - Chronic kidney disease, stage 3 (moderate) (5) UTI (urinary tract infection) Status: Acute Qualifiers: Urinary tract infection type: acute cystitis (6) H/O TIA (transient ischemic attack) and stroke Code(s): Z86.73 - PRSNL HX OF TIA (TIA), AND CEREB INFRC W/O RESID DEFICITS Status: Chronic - Plan UTI with group B strep on Rocephin since 11/09/2019, switch to Amoxicillin orally Afib with RVR recurrent after stopped diltiazem drip for bradycardia- Dr. Laboy consult today, possible BRO and cardioversion
[2019-11-12] MEDS: Amlodipine 10 MG TAB PO SCH (09:13)
[2019-11-12] MEDS: Magnesium Oxide 400 MG TAB PO SCH ×2 (09:13→21:00)
[2019-11-12] MEDS: Aspirin Chewable 81 MG TAB PO SCH (09:13)
[2019-11-12] MEDS: AMOXicillin 250 MG CAP PO SCH ×3 (09:13→20:59)
[2019-11-12] MEDS: Enoxaparin Sodium 80 MG/0.8 ML SYRINGE SC SCH (10:13)
[2019-11-12] MEDS ORDERED: Nebivolol HCl 5 MG TAB PO SCH (17:00)
[2019-11-12] MEDS ORDERED: Apixaban 2.5 MG TAB PO SCH (17:00)
[2019-11-12] MEDS: Famotidine 20 MG TAB PO SCH (20:59)
[2019-11-12] MEDS: Cyclobenzaprine 10 MG TAB PO PRN (21:01)
[2019-11-13 04:51] LABS: Hemoglobin 12.4 g/dL (12.0-16.0); Platelet Count 223 thou/uL (130-400)
--- NOTE | 2019-11-13 08:38 | PDOC.HOSPP ---
- Subjective Encounter Date: 11/13/19 Encounter Time: 10:30 Subjective: Patient feeling ok. Saw Dr. Laboy this AM and he cleared her to d/c home. Patient doesn't really want to have a procedure done and prefers to stay home as much as possible. Dr. Laboy has recommended f/u with Dr. Fair and come see him if needed. - Objective Vital Signs & Weight: Vital Signs (12 hours) Temp Pulse Resp BP BP Pulse Ox 11/13/19 07:23 97.6 F 105 H 19 160/72 H 96 11/13/19 04:00 98.1 F 96 18 133/86 97 Weight Weight 158 lb 14.4 oz I&O: 11/12/19 11/13/19 11/14/19 06:59 06:59 06:59 Intake Total 1530 50 Output Total 2600 450 Balance -1070 -400 Result Diagrams: 11/13/19 04:24 11/13/19 04:24 Hospitalist ROS - Review of Systems Constitutional: denies: fever, chills Respiratory: denies: cough, shortness of breath Cardiovascular: denies: chest pain, palpitations Gastrointestinal: denies: nausea, vomiting, abdominal pain - Medication Medications: Active Medications Generic Name Dose Route Start Last Admin Trade Name Freq PRN Reason Stop Dose Admin Acetaminophen 1,000 mg 11/09/19 11:18 11/12/19 05:35 Tylenol PO 1,000 mg Q6H PRN Administration Mild Pain (1-3) Amoxicillin 500 mg 11/12/19 09:00 11/12/19 20:59 Amoxil PO 500 mg TID [facility] Administration Cyclobenzaprine HCl 5 mg 11/10/19 12:12 11/12/19 21:01 Flexeril PO 5 mg TIDPRN PRN Administration Muscle Spasm Famotidine 20 mg 11/10/19 21:00 11/12/19 20:59 Pepcid PO 20 mg QPM [facility] Administration Magnesium Oxide 400 mg 11/09/19 21:00 11/12/19 21:00 Magnesium Oxide PO 400 mg BID [facility] Administration Sodium Chloride 10 ml 11/10/19 09:00 11/12/19 21:00 Flush - Normal Saline IVF 10 ml Q12HR [facility] Administration Tramadol HCl 50 mg 11/10/19 12:14 11/12/19 21:01 Ultram PO 50 mg Q4H PRN Administration Moderate Pain (4-6) Tramadol HCl 100 mg 11/10/19 12:18 11/10/19 23:33 Ultram PO 100 mg Q4H PRN Administration Severe Pain (7-10) - Exam General Appearance: NAD, awake alert ENT: moist mucosa Heart: no murmur, no gallops, no rubs, irregular Respiratory: CTAB, no wheezes, no rales, no ronchi Gastrointestinal: soft, non-tender, non-distended, normal bowel sounds Extremities: no edema Psychiatric: normal affect, normal behavior Hosp A/P (1) Atrial fibrillation with rapid ventricular response Code(s): I48.91 - UNSPECIFIED ATRIAL FIBRILLATION Status: Acute (2) Essential (primary) hypertension Code(s): I10 - ESSENTIAL (PRIMARY) HYPERTENSION Status: Chronic (3) Diastolic congestive heart failure Code(s): I50.30 - UNSPECIFIED DIASTOLIC (CONGESTIVE) HEART FAILURE Status: Chronic (4) Chronic kidney disease Code(s): N18.9 - CHRONIC KIDNEY DISEASE, UNSPECIFIED Status: Chronic Qualifiers: Chronic kidney disease stage: stage 3 (moderate) Qualified Code(s): N18.3 - Chronic kidney disease, stage 3 (moderate) (5) UTI (urinary tract infection) Status: Acute Qualifiers: Urinary tract infection type: acute cystitis (6) H/O TIA (transient ischemic attack) and stroke Code(s): Z86.73 - PRSNL HX OF TIA (TIA), AND CEREB INFRC W/O RESID DEFICITS Status: Chronic - Plan UTI with group B strep on Rocephin since 11/09/2019, switched to Amoxicillin orally, continue for 14 days total Afib with RVR recurrent after stopped diltiazem drip for bradycardia- Dr. Laboy planning to try rate control right now, not going to cardiovert. Cleared for d/c home per Dr. Laboy.
[2019-11-13] MEDS ORDERED: Nebivolol HCl 5 MG TAB PO SCH ×2 (09:00)
[2019-11-13] MEDS ORDERED: Apixaban 2.5 MG TAB PO SCH (09:00)
--- NOTE | 2019-11-13 09:43 | CON ---
DATE OF CONSULTATION: 11/13/2019 PRIMARY CARE PHYSICIAN: Wolfgang Fair MD REFERRING IN STORE BANKER: Gerald Lopez MD REASON FOR CONSULTATION: Atrial fibrillation. HISTORY OF PRESENT ILLNESS: Ms. Huitron is a pleasant 84-year-old white female with a history of longstanding persistent atrial fibrillation, stroke with residual left hemiparesis, hypertension, chronic kidney disease, and admission for a UTI. She recently had her Bystolic increased from 10 mg daily to [address] Fair with good response to her rate control of her atrial fibrillation. She was seen in his office last week. She developed a urinary tract infection and was admitted four days ago. She has been receiving intravenous antibiotics. She was placed on amlodipine and her Bystolic was held. She was placed on intravenous Cardizem for rate control as she had rapid ventricular response. She has had frequent falls, but none in the past two months. She is on aspirin 81 mg daily for anticoagulation. She has refused anticoagulation in the past. She has chronic peripheral edema. She has no orthopnea. She had dyspnea with her recent illness. This was daily dyspnea, mild in intensity, exacerbated by exertion and relieved with rest. PAST MEDICAL HISTORY: 1. Longstanding persistent atrial fibrillation. 2. Hypertension. 3. Stroke with residual left hemiparesis. 4. 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 5. Peripheral neuropathy. 6. Falls. 7. Breast cancer. 8. Chronic kidney disease, stage 3. PAST SURGICAL HISTORY: 1. Hysterectomy. 2. Bilateral mastectomy. 3. Tonsillectomy. 4. Cataract removal. ALLERGIES: IBUPROFEN AND MACROBID. OUTPATIENT MEDICATIONS: 1. Bystolic 20 mg daily. 2. Tramadol 50 mg p.o. q.6 hours p.r.n. pain. 3. Aspirin 81 mg daily. 4. Omeprazole 40 mg daily. 5. Flexeril 10 mg daily p.r.n. muscle spasm. 6. Potassium chloride 20 mEq daily. FAMILY HISTORY: Brother with chronic kidney disease. Sister with diabetes. SOCIAL HISTORY: She lives alone in [place]. She has caregivers come to her home. Her daughter lives nearby and is with her today. No tobacco or alcohol. She uses a wheelchair. She does not ambulate. Her son has medical power of insurance defense attorney. REVIEW OF SYSTEMS: Negative for fever, chills, weight loss, melena, bright red blood per rectum, hematemesis, orthopnea, syncope, or seizures. Positive for peripheral edema. PHYSICAL EXAMINATION: GENERAL: Alert and oriented x4, in no apparent distress. Well groomed. VITAL SIGNS: Afebrile. Blood pressure 141/97, pulse 105, respiratory rate 12, and oxygen saturation 96% on room air. HEENT: No lesions. Sclerae clear. SKIN: No lesions. CARDIOVASCULAR: Irregularly irregular rhythm. No murmurs, gallops, or rubs. LUNGS: Clear to auscultation bilaterally. Normal respiratory effort. EXTREMITIES: 1+ edema bilaterally. LABORATORY DATA: EKG, atrial fibrillation. Telemetry, atrial fibrillation with no significant pauses. IMPRESSION AND PLAN: 1. Permanent atrial fibrillation. We had a long discussion about treatment options including cardioversion at this point. We have decided to pursue a rate control strategy given her longstanding persistent atrial fibrillation. Asymptomatic status and poor functional status. It is unlikely that we will be able to maintain sinus rhythm long-term. They are agreeable for this approach. We will discontinue aspirin and start Eliquis 2.5 mg b.i.d. We counseled her on the risk of falls as most of her falls have occurred when she does not ask for assistance at home. We will increase Bystolic to 20 mg daily as this has rate controlled in the past. 2. Hypertension. Increase Bystolic as above. 3. Okay to discharge from a cardiac electrophysiology standpoint. She will follow up with Dr. Fair. She will see us back on a as needed basis. She does not like to get out to see doctors on a frequent basis. I have told her and her daughter that our door is always open to see her should she need our services in the future. Job ID: [id number]
[2019-11-13] MEDS: Magnesium Oxide 400 MG TAB PO SCH (09:49)
[2019-11-13] MEDS: AMOXicillin 250 MG CAP PO SCH (10:00)
[2019-11-13 11:58] VITALS: BP 127/89; TEMP 97.8
--- NOTE | 2019-11-14 03:43 | DIS ---
DATE OF ADMISSION: 11/09/2019 DATE OF DISCHARGE: 11/13/2019 PRIMARY CARE PHYSICIAN: Wolfgang Fair MD REASON FOR ADMISSION: Dysuria and tachycardia. DIAGNOSES AT DISCHARGE: 1. Urinary tract infection with group B strep with sepsis- resolved 2. Atrial fibrillation with rapid ventricular response. 3. Chronic kidney disease, stage 3. 4. Hypertension. 5. Diastolic congestive heart failure. 6. Previous stroke. PROCEDURE: Echocardiogram showing ejection fraction of 50% to 55%, atrial fibrillation, and no other significant abnormalities. CONSULTATIONS: 1. Cardiology, Dr. Olson for Dr. Lopez. 2. Electrophysiology, Dr. Laboy. SUMMARY OF HOSPITAL COURSE: This is an 84-year-old white female, who presented to hospital complaining of palpitations, difficulty sleeping with urinary urgency and frequency. She has a history of recurrent urinary tract infections. The patient also in the emergency room was noted to be in atrial fibrillation with rapid ventricular rate. She had this controlled with Cardizem infusion. The patient improved during hospitalization. Dr. Laboy was consulted per family request for electrophysiology. Dr. Laboy spoke with the patient about possibilities of treatment for atrial fibrillation and in the end, the patient determined that she would prefer just medical management. She was put on Eliquis and her Bystolic was increased, and Dr. Laboy has cleared her from a cardiac standpoint to go home. The patient's urinary tract infection was found to be group B strep, sensitive to amoxicillin, and so she was switched to that. She is currently doing well, is being discharged home. DISCHARGE MANAGEMENT: Discharged home. ACTIVITY: As tolerated. DIET: Regular diet. She should try and keep from taking drinking too much fluids. FOLLOWUP: Follow up with Dr. Fair in [address] Laboy as needed. DISCHARGE MEDICATIONS: 1. Amoxicillin 500 mg 3 times a day, 30 capsules dispensed for her to complete a 14-day course of antibiotics. 2. Eliquis 2.5 mg twice a day, 60 tablets dispensed. 3. Bystolic 20 mg tabs 1 tablet daily, 30 tablets dispensed. 4. Aspirin 81 mg daily. 5. Flexeril 5 mg every 8 hours as needed. 6. Stool softener twice a day. 7. Magnesium as directed. 8. Omeprazole 40 mg daily. 9. Potassium chloride 20 mEq daily. 10. Tramadol as needed for pain. Job ID: [id number] [facility]
--- NOTE | 2019-11-14 05:18 | PQF ---
JO-ANN CLAY JOSHUA MD [id number] [id number] CLINICAL DOCUMENTATION CLARIFICATION FORM: POST DISCHARGE Addendum to original discharge summary date: ____ Late entry note date: __ DATE: 11/14/2019 ATTN: Soy Mora Please exercise your independent, professional judgment in responding to the clarification form. Clinical indicators are provided on the bottom of this form for your review Please check appropriate box(es): [ X ] Sepsis due to UTI [ ] Severe sepsis with acute organ dysfunction of: (Examples: respiratory failure, encephalopathy, acute kidney failure, other) [ ] Septic Shock [ ] Localized infection without sepsis [ ] Other diagnosis [ ] Unable to determine In addition, please specify: Present on Admission (POA): [ X ] Yes [ ] No [ ] Unable to determine For continuity of documentation, please document condition throughout progress notes and discharge summary. Thank You. 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 All Rights Reserved [email or web address]
== END 2019-11-13 13:10 | disposition home or self-care (01) | DRG 308 ==
LOC: ERS 05:22 → ERHOLD 07:13 → 2NO 16:20
PROVIDERS: ADMIT Internal Medicine Sleep Medicine; ATTEND Family Medicine
DX: I48.11 Longstanding persistent atrial fibrillation (principal); A40.1 Sepsis due to streptococcus, group B; N39.0 Urinary tract infection, site not specified; I69.354 Hemiplegia and hemiparesis following cerebral infarction affecting left non-dominant side; N17.9 Acute kidney failure, unspecified; I50.32 Chronic diastolic (congestive) heart failure; I13.0 Hypertensive heart and chronic kidney disease with heart failure and stage 1 through stage 4 chronic kidney disease, or unspecified chronic kidney disease; Z66 Do not resuscitate; N18.3 Chronic kidney disease, stage 3 (moderate); R13.10 Dysphagia, unspecified; I34.0 Nonrheumatic mitral (valve) insufficiency; R00.1 Bradycardia, unspecified; I69.391 Dysphagia following cerebral infarction; Z85.3 Personal history of malignant neoplasm of breast; Z90.13 Acquired absence of bilateral breasts and nipples; Z90.710 Acquired absence of both cervix and uterus; Z79.899 Other long term (current) drug therapy; Z79.82 Long term (current) use of aspirin; Z88.6 Allergy status to analgesic agent; Z88.1 Allergy status to other antibiotic agents; Z87.440 Personal history of urinary (tract) infections
CPT/HCPCS: 36415; 71045; 80048; 80053; 81003; 81015; 82565; 83735; 84443; 84484; 85007; 85014; 85018; 85025; 85027; 85049; 85610; 85730; 87040; 87077; 87086; 93005; 93306; A4353; J0696; J1650; J1956; J3490

== ENCOUNTER 2020-01-28 10:45 | Inpatient (IN) | payer MEDICARE ==
[2020-01-28] MEDS ORDERED: Vancomycin 1 GM/200 ML BAG ONE ×2 (11:23→12:28)
[2020-01-28] MEDS ORDERED: Cefepime 2 GM VIAL ONE (11:23)
[2020-01-28 11:33] LABS: Bacteria/HPF 3+ HPF (None Seen); Bilirubin Negative (Negative); Blood, Urine 3+ (Negative); Clarity Extra Turbid (Clear); Glucose, Urine (Dipstick) Normal (Negative); Leukocyte 500 Leu/uL (Negative); Nitrite Negative (Negative); Protein, Urine (Dipstick) 100 mg/dL (Neg-Trace); RBC/HPF Greater than 50 HPF (0-3); Squamous Epithelial 0-3 HPF (0-3); Urobilinogen Normal mg/dL (Less than 2); WBC/HPF Greater than 50 HPF (0-3)
--- NOTE | 2020-01-28 11:49 | RAD ---
Exam: Chest one view HISTORY:Confusion. Cough. Comparison: 11/09/2019 FINDINGS: Cardiac silhouette:Cardiomegaly. Aorta: Atherosclerosis Pulmonary vessels: Normal Costophrenic angles: Clear LUNGS: No masses or consolidation. Pneumothorax: None Osseous abnormalities: None IMPRESSION: 1. Cardiomegaly. No evidence of congestive heart failure 2. Atherosclerosis.
[2020-01-28 11:50] LABS: #Lymphocytes 1.1 thou/uL (1.20-3.40); #Monocytes 1.6 thou/uL (0.11-0.59); #Neutrophils 9.3 thou/uL (1.40-6.50); %Basophils 0.3 % (0.0-1.0); %Eosinophils 0.2 % (0.0-10.0); %Lymphocytes 8.8 % (21.0-51.0); %Monocytes 13.5 % (0.0-10.0); %Neutrophils 77.3 % (42.0-75.0); Hemoglobin 12.7 g/dL (12.0-16.0); Mean Corpuscular HGB CONC 30.9 g/dL (32.0-36.0); Mean Corpuscular Volume 90.8 fL (78.0-98.0); Mean Platelet Volume 7.8 fL (7.4-10.4); Platelet Count 163 thou/uL (130-400); RBC Distribution Width 13.7 % (11.5-14.5); Red Blood Cell (RBC) Count 4.51 mill/uL (4.20-5.40)
[2020-01-28 12:17] LABS: ALT (SGPT) 16 U/L (8-55); AST (SGOT) 17 U/L (5-34); Albumin 3.3 g/dL (3.4-4.8); Alkaline Phosphatase 104 U/L (40-110); Anion Gap 14 mmol/L (10-20); BUN (Urea Nitrogen) 21 mg/dL (9.8-20.1); Bilirubin, Total 1.4 mg/dL (0.2-1.2); Calc. Creatinine Clearance 0 mL/min (70-130); Carbon Dioxide 20 mmol/L (23-31); Chloride 108 mmol/L (98-107); Estimated GFR-MDRD 35; Globulin 2.4 g/dL (2.4-3.5); Glucose 110 mg/dL (83-110); Protein, Total 5.7 g/dL (6.0-8.3); Sodium 138 mmol/L (136-145)
[2020-01-28] MEDS ORDERED: MEROPENEM 1 GM/50 ML 1 GM in Premix Bag 1 BAG IVPB SCH (12:30)
--- NOTE | 2020-01-28 13:35 | CT ---
BRAIN CT WITHOUT IV CONTRAST: History: Slurred speech, confusion. Cough. Comparison: 02-22-12 FINDINGS: Marked stable bilateral atrophy and chronic white matter ischemic change. Small stable ossific focus projecting off the inter table of the skull involving the right frontal region, possibly a small stab le calcified meningioma. No mass or midline shift. No acute hemorrhage. IMPRESSION: Stable exam with atrophy and chronic white matter ischemic change. No mass or bleed. POS: [facility]
--- NOTE | 2020-01-28 13:50 | PDOC.HHP ---
Hospitalist HPI - History of Present Illness fever and cough History of Present Illness: 84-year-old female, who presents to [facility] Emergency Department complaining of palpitations and difficulty sleeping with urinary urgency and frequency. Had multiple recent UTIs and was recently hospitalized for strep B UTI. Prior to that had multiple E. coli and VRE UTIs. This time, complains about burning on urination, dry cough for several weeks, fever (per family, had 100.2 max at home) for the past three days so was brought to the ED by family. On encounter, laying comfortably in bed. Denies loss of smell or taste, chills, night sweats, chest pain, pleuritic pain, dyspnea, abdominal pain, flank pain, diarrhea, focal weakness, recent travel. ED Course: In the ED, found to be afebrile, in afib w/ RVR, hypotensive, and urinalysis c/ w UTI. Was given 1L NS bolus and admitted to telemetry for further management Hospitalist ROS - Review of Systems Constitutional: denies: fever, chills, sweats, weakness, malaise, other Respiratory: reports: cough, dry. denies: shortness of breath, hemoptysis, SOB with excertion, pleuritic pain, sputum, wheezing, other Cardiovascular: denies: chest pain, palpitations, orthopnea, paroxysmal noc. dyspnea, edema, light headedness, other Gastrointestinal: denies: nausea, vomiting, abdominal pain, diarrhea, constipation, melena, hematochezia, other Genitourinary: reports: frequency. denies: dysuria, incontinence, hematuria, retention Hospitalist History - Past Medical History Source: family, old records (PAST MEDICAL HISTORY: 1. Hypertension. 2. CVA with residual left hemiparesis. 3. 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 4. Peripheral neuropathy. 5. History of falls. 6. Breast cancer. 7. Chronic kidney disease, stage 3. PAST SURGICAL HISTORY: 1. Status post hysterectomy. 2. Status post bilateral mastectomy. 3. Status post tonsillectomy. 4. Status post cataract removal. CURRENT MEDICATIONS: reconciled in EMR ALLERGIES: IBUPROFEN AND MACROBID. FAMILY HISTORY: Brother with chronic kidney disease and sister with diabetes mellitus. SOCIAL HISTORY: Resides in [place], [place]. Accompanied by her family in the emergency room. No current alcohol, tobacco, or illicit drug use. Mobilizes with a wheelchair. Multiple falls reported by family members. Receives 24-hour care. Surrogate medical decision maker is the patient 's son, who is medical power of deputy county attorney) - Exam General Appearance: NAD, awake alert General - other findings: emaciated Neck: no JVD Heart: no murmur, no gallops, no rubs, irregular Heart - other findings: rate 130s; afib w/ RVR on tele Respiratory: CTAB, no wheezes, no rales, no ronchi Gastrointestinal: soft, non-tender, non-distended, normal bowel sounds Extremities: no edema Extremities - other findings: evidence of distal osteoarthritis Neurological - other findings: dysarthric (baselilne) Psychiatric: normal affect, normal behavior Hospitalist Results - Labs Result Diagrams: 01/28/20 11:27 01/28/20 11:27 Lab results: WBC 12.0 thou/uL (4.8-10.8) H 01/28/20 11:27 Hgb 12.7 g/dL (12.0-16.0) 01/28/20 11:27 Hct 41.0 % (36.0-47.0) 01/28/20 11: MCV 90.8 fL (78.0-98.0) 01/28/20 11:27 Plt Count 163 thou/uL (130-400) 01/28/20 11:27 Neutrophils % 77.3 % (42.0-75.0) H 01/28/20 11:27 Sodium 138 mmol/L (136-145) 01/28/20 11:27 Potassium 4.0 mmol/L (3.5-5.1) 01/28/20 11:27 Chloride 108 mmol/L (98-107) H 01/28/20 11:27 Carbon Dioxide 20 mmol/L (23-31) L 01/28/20 11:27 BUN 21 mg/dL (9.8-20.1) H 01/28/20 11:27 Creatinine 1.42 mg/dL (0.6-1.1) H 01/28/20 11:27 Glucose 110 mg/dL (83-110) 01/28/20 11:27 Lactic Acid 1.2 mmol/L (0.5-2.2) 01/28/20 11:27 Calcium 9.0 mg/dL (7.8-10.44) 01/28/20 11:27 Total Bilirubin 1.4 mg/dL (0.2-1.2) H 01/28/20 11:27 AST 17 U/L (5-34) 01/28/20 11:27 ALT 16 U/L (8-55) 01/28/20 11:27 Alkaline Phosphatase 104 U/L (40-110) 01/28/20 11:27 Troponin I 0.028 ng/mL (< 0.028) 01/28/20 11:27 B-Natriuretic Peptide 628.4 pg/mL (0-100) H 01/28/20 11:27 Serum Total Protein 5.7 g/dL (6.0-8.3) L 01/28/20 11:27 Albumin 3.3 g/dL (3.4-4.8) L 01/28/20 11:27 Urine Ketones Negative mg/dL (Negative) 01/28/20 11:15 Urine Blood 3+ (Negative) A 01/28/20 11:15 Urine Nitrite Negative (Negative) 01/28/20 11:15 Ur Leukocyte Esterase 500 Rebecca/uL (Negative) A 01/28/20 11:15 Urine RBC Greater than 50 HPF (0-3) A 01/28/20 11:15 Urine WBC Greater than 50 HPF (0-3) A 01/28/20 11:15 Ur Squamous Epith Cells 0-3 HPF (0-3) 01/28/20 11:15 Urine Bacteria 3+ HPF (None Seen) A 01/28/20 11:15 - EKG Interpretation EKG: atrial fibrillation, left axis deviation, incomplete RBBB, LAFB; no signs of acute ischemia - Radiology Interpretation Chest x-ray Status: report reviewed by me (no acute cardiopulmonary process) Hospitalist H&P A/P - Problem (1) Sepsis associated hypotension Code(s): A41.9 - SEPSIS, UNSPECIFIED ORGANISM; I95.9 - HYPOTENSION, UNSPECIFIED Status: Acute (2) UTI (urinary tract infection) Status: Acute Qualifiers: Urinary tract infection type: acute cystitis - Plan Plan: 84yo F w/ MHx of recurrent UTIs and atrial fibrillation with RVR presents with sepsis due to UTI and atrial fibrillation w/ RVR * sepsis due to complicated UTI * qSOFA 2/3 on presentation * history of VRE, Strep B, e.coli UTI * pending UCx and BCx * * start on zosyn (tolerated Amoxicillin in recent past) based on previous susceptibilities * match I/O with IV fluids * atrial fibrillation w/ RVR * current rate 130s * HD stable and no complaints * * started cardizem with holding parameters * if becomes hypotensive, can transition to amiodarone * continue home eliquis * * disposition/PPx * DNAR per daughter in law and decision maker * DVT PPx: on therapeutic eliquis * GI PPx: on home PPI; will resume * * ELOS: 2-3 midnights
--- NOTE | 2020-01-28 14:23 | RAD ---
Exam:Right femur 2 views HISTORY: Trauma. Pain. Fall. COMPARISON: None FINDINGS: No fracture, cortical irregularity or periosteal reaction. IMPRESSION: No fracture.
--- NOTE | 2020-01-28 14:24 | RAD ---
Exam:2 views right hip HISTORY: Trauma. Pain. Recent fall. COMPARISON: 08/24/2016 FINDINGS: Contour of the femoral head is maintained. Joint spaces preserved. No fracture. Visualized right iliac wing and sacrum appear to be intact. IMPRESSION: No fracture.
--- NOTE | 2020-01-28 14:25 | RAD ---
Exam: One view pelvis COMPARISON: 08/24/2016 HISTORY: Trauma. Fall. Pain FINDINGS: Single view pelvis: Limited evaluation of the iliac wings and sacrum due to overlying bowel gas and fecal material. No obvious pelvic fracture. Contour of both femoral heads are maintained. Limited evaluation the left femoral neck. IMPRESSION: No fracture.
[2020-01-28 16:24] LABS: Troponin I 0.035 ng/mL (< 0.028)
[2020-01-28] MEDS ORDERED: Docusate 100 MG CAP PO PRN (16:48)
[2020-01-28] MEDS ORDERED: Diltiazem 125 MG in Sodium Chloride 0.9% 100 ML IVPB SCH (17:00)
[2020-01-28] MEDS: Sodium Chloride 0.9% 1,000 ML IV SCH (18:04)
[2020-01-28] MEDS: Piperacillin/Tazobactam 3.375 GM in Sodium Chloride 0.9% 100 ML IVPB SCH ×2 (18:04→22:48)
[2020-01-28 18:09] LABS: Troponin I 0.019 ng/mL (< 0.028)
[2020-01-28] MEDS: Apixaban 2.5 MG TAB PO SCH (20:53)
[2020-01-28] MEDS: traMADol HCl 50 MG TAB PO PRN (22:47)
[2020-01-28] MEDS ORDERED: Cyclobenzaprine 10 MG TAB PO SCH (23:45)
[2020-01-29 04:39] LABS: #Lymphocytes 1.1 thou/uL (1.20-3.40); #Monocytes 1.2 thou/uL (0.11-0.59); #Neutrophils 6.8 thou/uL (1.40-6.50); %Basophils 0.1 % (0.0-1.0); %Eosinophils 0.2 % (0.0-10.0); %Lymphocytes 12.2 % (21.0-51.0); %Monocytes 13.5 % (0.0-10.0); Hemoglobin 11.2 g/dL (12.0-16.0); Mean Corpuscular HGB CONC 31.8 g/dL (32.0-36.0); Mean Corpuscular Hemoglobin 28.9 pg (27.0-31.0); Mean Corpuscular Volume 90.7 fL (78.0-98.0); Mean Platelet Volume 8.7 fL (7.4-10.4); Platelet Count 147 thou/uL (130-400); RBC Distribution Width 13.7 % (11.5-14.5); Red Blood Cell (RBC) Count 3.86 mill/uL (4.20-5.40); White Blood Cell (WBC) Count 9.2 thou/uL (4.8-10.8)
[2020-01-29 04:57] LABS: Anion Gap 10 mmol/L (10-20); BUN (Urea Nitrogen) 21 mg/dL (9.8-20.1); Calc. Creatinine Clearance 35 mL/min (70-130); Calcium 8.9 mg/dL (7.8-10.44); Carbon Dioxide 19 mmol/L (23-31); Chloride 111 mmol/L (98-107); Estimated GFR-MDRD 38; Glucose 123 mg/dL (83-110); Potassium 3.4 mmol/L (3.5-5.1); Sodium 137 mmol/L (136-145)
[2020-01-29] MEDS: Piperacillin/Tazobactam 3.375 GM in Sodium Chloride 0.9% 100 ML IVPB SCH ×4 (05:01→23:57)
[2020-01-29] MEDS: Apixaban 2.5 MG TAB PO SCH ×2 (09:00→20:54)
[2020-01-29] MEDS: Potassium Chloride 20 MEQ TAB PO SCH ×3 (09:00→12:01)
[2020-01-29] MEDS: Cyclobenzaprine 10 MG TAB PO SCH ×3 (09:00→20:55)
[2020-01-29] MEDS ORDERED: Prevnar 13-Val Conj/PF 0.5 ML SYRINGE IM ONE (09:00)
[2020-01-29] MEDS: traMADol HCl 50 MG TAB PO PRN ×2 (09:01→20:54)
[2020-01-29] MEDS: Sodium Chloride 0.9% 1,000 ML IV SCH (12:32)
--- NOTE | 2020-01-30 01:00 | PDOC.HOSPP ---
- Subjective Encounter Date: 01/29/20 Encounter Time: 09:00 Subjective: overnight, rate better controlled. This morning, more alert. has no complaints. Urine and blood cultures growing E. coli - Objective Vital Signs & Weight: Vital Signs (12 hours) Temp Pulse Pulse Pulse Resp BP BP 01/29/20 23:59 102 H 01/29/20 19:35 98.2 F 84 18 01/29/20 15:13 98.1 F 88 16 01/29/20 14:22 118 H 80 118/71 125/63 BP Pulse Ox 01/29/20 23:59 118/65 01/29/20 19:35 115/62 93 L 01/29/20 15:13 155/69 H 92 L 01/29/20 14:22 Weight Admit Weight 162 lb Weight 162 lb I&O: 01/28/20 01/29/20 01/30/20 06:59 06:59 06:59 Intake Total 1220 1280 Output Total 1300 740 Balance -80 540 Result Diagrams: 01/29/20 04:01 01/29/20 04:01 Hospitalist ROS - Review of Systems Constitutional: denies: fever, chills, sweats, weakness, malaise, other Respiratory: denies: cough, dry, shortness of breath, hemoptysis, SOB with excertion, pleuritic pain, sputum, wheezing, other Cardiovascular: denies: chest pain, palpitations, orthopnea, paroxysmal noc. dyspnea, edema, light headedness, other Gastrointestinal: denies: nausea, vomiting, abdominal pain, diarrhea, constipation, melena, hematochezia, other - Medication Medications: Active Medications Generic Name Dose Route Start Last Admin Trade Name Freq PRN Reason Stop Dose Admin Apixaban 2.5 mg 01/28/20 21:00 01/29/20 20:54 Eliquis PO 2.5 mg BID BROOKS Administration Cyclobenzaprine HCl 5 mg 01/29/20 09:00 01/29/20 20:55 Flexeril PO 5 mg TID BROOKS Administration Diltiazem HCl 60 mg 01/29/20 12:00 01/29/20 23:57 Cardizem PO 60 mg Q6HR BROOKS Administration Sodium Chloride 1,000 mls @ 50 mls/hr 01/28/20 16:45 01/29/20 12:32 Normal Saline 0.9% IV 1,000 mls .Q20H BROOKS Administration Piperacillin Sod/Tazobactam 100 mls @ 200 mls/hr 01/28/20 18:00 01/29/20 23: 57 Sod 3.375 gm/ Sodium Chloride IVPB 100 mls Q6HR BROOKS Administration Pantoprazole Sodium 40 mg 01/29/20 09:00 01/29/20 09:00 Protonix PO 40 mg DAILY BROOKS Administration Potassium Chloride 20 meq 01/29/20 08:00 01/29/20 09:00 K-Dur PO 20 meq QAM-WM BROOKS Administration Tramadol HCl 50 mg 01/28/20 16:48 01/29/20 20:54 Ultram PO 50 mg Q4H PRN Administration Pain - Exam General Appearance: NAD, awake alert Heart: no murmur, no gallops, no rubs, normal peripheral pulses, irregular Respiratory: CTAB, no wheezes, no rales, no ronchi, normal chest expansion, no tachypnea, normal percussion Gastrointestinal: soft Hosp A/P (1) Sepsis associated hypotension Code(s): A41.9 - SEPSIS, UNSPECIFIED ORGANISM; I95.9 - HYPOTENSION, UNSPECIFIED Status: Acute (2) UTI (urinary tract infection) Status: Acute Qualifiers: Urinary tract infection type: acute cystitis - Plan #atrial fibrillation with RVR-transition to oral cardizem #E.coli bacteremia and complicated UTI - contnue zosyn pending susceptibilities #urinary retention - dc inserted
[2020-01-30] MEDS: Piperacillin/Tazobactam 3.375 GM in Sodium Chloride 0.9% 100 ML IVPB SCH (06:11)
[2020-01-30] MEDS: Sodium Chloride 0.9% 1,000 ML IV SCH (09:10)
[2020-01-30] MEDS: Cyclobenzaprine 10 MG TAB PO SCH ×3 (09:11→20:11)
[2020-01-30] MEDS: Potassium Chloride 20 MEQ TAB PO SCH (09:11)
[2020-01-30] MEDS: Apixaban 2.5 MG TAB PO SCH ×2 (09:11→20:11)
[2020-01-30] MEDS ORDERED: Bisacodyl 5 MG TAB PO SCH (13:30)
--- NOTE | 2020-01-30 15:06 | PDOC.HOSPP ---
- Subjective Encounter Date: 01/30/20 Encounter Time: 07:00 Subjective: no overnight events. This morning, feeling well and has no complaints. - Objective Vital Signs & Weight: Vital Signs (12 hours) Temp Pulse Resp BP Pulse Ox 01/30/20 11:13 98.0 F 82 18 111/66 95 01/30/20 09:04 97.9 F 83 18 109/62 97 01/30/20 07:04 92 L 01/30/20 03:43 98.6 F 86 20 110/55 L 92 L Weight Admit Weight 162 lb Weight 166 lb 3.2 oz I&O: 01/29/20 01/30/20 01/31/20 06:59 06:59 06:59 Intake Total 1220 2180 Output Total 1300 1440 Balance -80 740 Result Diagrams: 01/29/20 04:01 01/29/20 04:01 Hospitalist ROS - Review of Systems Constitutional: denies: fever, chills, sweats, weakness, malaise, other Respiratory: denies: cough, dry, shortness of breath, hemoptysis, SOB with excertion, pleuritic pain, sputum, wheezing, other Cardiovascular: denies: chest pain, palpitations, orthopnea, paroxysmal noc. dyspnea, edema, light headedness, other Gastrointestinal: denies: nausea, vomiting, abdominal pain, diarrhea, constipation, melena, hematochezia, other Genitourinary: denies: dysuria, frequency, incontinence, hematuria, retention, other - Medication Medications: Active Medications Generic Name Dose Route Start Last Admin Trade Name Freq PRN Reason Stop Dose Admin Apixaban 2.5 mg 01/28/20 21:00 01/30/20 09:11 Eliquis PO 2.5 mg BID BROOKS Administration Bisacodyl 10 mg 01/30/20 13:30 01/30/20 14:19 Dulcolax PO 01/30/20 15:30 10 mg NOW BROOKS Administration Cyclobenzaprine HCl 5 mg 01/29/20 09:00 01/30/20 14:19 Flexeril PO 5 mg TID BROOKS Administration Diltiazem HCl 60 mg 01/29/20 12:00 01/30/20 12:15 Cardizem PO 60 mg Q6HR BROOKS Administration Sodium Chloride 1,000 mls @ 50 mls/hr 01/28/20 16:45 01/30/20 09:10 Normal Saline 0.9% IV 1,000 mls .Q20H BROOKS Administration Pantoprazole Sodium 40 mg 01/29/20 09:00 01/30/20 09:13 Protonix PO 40 mg DAILY BROOKS Administration Potassium Chloride 20 meq 01/29/20 08:00 01/30/20 09:11 K-Dur PO 20 meq QAM-WM BROOKS Administration Tramadol HCl 50 mg 01/28/20 16:48 01/29/20 20:54 Ultram PO 50 mg Q4H PRN Administration Pain - Exam General Appearance: NAD, awake alert Heart: no murmur, no gallops, no rubs, irregular Respiratory: CTAB, no wheezes, no rales, no ronchi Gastrointestinal: soft, non-tender, non-distended, normal bowel sounds Neurological - other findings: dysarthric at baseline Psychiatric: normal affect, normal behavior, A&O x 3 Hosp A/P (1) Sepsis associated hypotension Code(s): A41.9 - SEPSIS, UNSPECIFIED ORGANISM; I95.9 - HYPOTENSION, UNSPECIFIED Status: Acute (2) UTI (urinary tract infection) Status: Acute Qualifiers: Urinary tract infection type: acute cystitis - Plan #atrial fibrillation with RVR-transition to long acting cardizem #E.coli bacteremia and complicated UTI - stopped zosyn, start levofloxacin 750mg PO daily for total of #constipation #urinary retention - dc inserted; started bowel regimen; will be followed by urology as outpatient ELOS: 1 midnight
[2020-01-30] MEDS: traMADol HCl 50 MG TAB PO PRN ×2 (17:50→23:13)
[2020-01-30] MEDS: Senokot S 8.6-50 MG TAB PO SCH (20:12)
[2020-01-31 05:10] LABS: Anion Gap 12 mmol/L (10-20); BUN (Urea Nitrogen) 17 mg/dL (9.8-20.1); Calc. Creatinine Clearance 42 mL/min (70-130); Calcium 9.1 mg/dL (7.8-10.44); Carbon Dioxide 16 mmol/L (23-31); Chloride 111 mmol/L (98-107); Estimated GFR-MDRD 46; Glucose 93 mg/dL (83-110); Magnesium 1.5 mg/dL (1.6-2.6); Potassium 3.8 mmol/L (3.5-5.1); Sodium 135 mmol/L (136-145)
[2020-01-31] MEDS ORDERED: Mineral Oil ENEMA PR SCH (08:15)
[2020-01-31] MEDS: Cyclobenzaprine 10 MG TAB PO SCH ×3 (08:18→20:44)
[2020-01-31] MEDS: Potassium Chloride 20 MEQ TAB PO SCH (08:18)
[2020-01-31] MEDS: Apixaban 2.5 MG TAB PO SCH ×2 (08:18→20:45)
[2020-01-31] MEDS: Senokot S 8.6-50 MG TAB PO SCH ×2 (08:18→20:43)
[2020-01-31] MEDS: Polyethylene Glycol 3350 17 GM Packet PO SCH (08:18)
[2020-01-31] MEDS: Magnesium Oxide 400 MG TAB PO SCH ×2 (08:26→20:44)
[2020-01-31] MEDS ORDERED: Polyethylene Glycol 3350 17 GM Packet PO SCH (09:00)
[2020-01-31] MEDS ORDERED: GoLYTELY 4,000 ml Bottle PO SCH (17:15)
[2020-01-31] MEDS: traMADol HCl 50 MG TAB PO PRN (20:42)
[2020-02-01] MEDS ORDERED: Melatonin 3 MG TAB PO SCH ×2 (02:00→21:00)
[2020-02-01 08:30] VITALS: BMI 25.0
[2020-02-01] MEDS: Cyclobenzaprine 10 MG TAB PO SCH ×2 (08:33→14:36)
[2020-02-01] MEDS: Apixaban 2.5 MG TAB PO SCH (08:33)
[2020-02-01] MEDS: Potassium Chloride 20 MEQ TAB PO SCH (08:33)
[2020-02-01] MEDS: Polyethylene Glycol 3350 17 GM Packet PO SCH (08:35)
[2020-02-01] MEDS: Magnesium Oxide 400 MG TAB PO SCH (08:35)
[2020-02-01] MEDS: Senokot S 8.6-50 MG TAB PO SCH (08:35)
[2020-02-01] MEDS ORDERED: Metoprolol Tartrate 25 MG TAB PO SCH ×2 (09:15→21:00)
[2020-02-01] MEDS ORDERED: Nebivolol HCl 2.5 MG TAB PO SCH (09:45)
[2020-02-01] MEDS ORDERED: Bisacodyl 10 MG SUPP PR SCH (09:45)
[2020-02-01] MEDS ORDERED: Nebivolol HCl 5 MG TAB PO SCH (12:30)
[2020-02-01 13:15] LABS: Anion Gap 14 mmol/L (10-20); BUN (Urea Nitrogen) 16 mg/dL (9.8-20.1); Calc. Creatinine Clearance 44 mL/min (70-130); Calcium 9.7 mg/dL (7.8-10.44); Carbon Dioxide 20 mmol/L (23-31); Chloride 108 mmol/L (98-107); Estimated GFR-MDRD 50; Glucose 106 mg/dL (83-110); Sodium 138 mmol/L (136-145)
[2020-02-01] MEDS: Bisacodyl 10 MG SUPP PR SCH ×2 (14:58→16:42)
[2020-02-01 15:33] VITALS: BP 153/65; TEMP 98.6
[2020-02-01] MEDS ORDERED: Haloperidol Lactate 5 MG/ML VIAL IM SCH (16:15)
[2020-02-02] MEDS ORDERED: Nebivolol HCl 5 MG TAB PO SCH (09:00)
--- NOTE | 2020-02-04 13:26 | DIS ---
DATE OF ADMISSION: 01/28/2020 DATE OF DISCHARGE: 02/01/2020 HOSPITAL COURSE: Ms. Huitron is an 85-year-old female with a medical history of CVA with residual left hemiparesis and dysarthria, who presented with palpitations and difficulty sleeping with urinary urgency and frequency, showed multiple recent UTIs and was recently hospitalized for strep B UTI, multiple E coli UTIs, and VRE UTIs. She was diagnosed with sepsis due to complicated urinary tract infection and bacteremia. She also had urinary retention during her inpatient stay and a Carvajal was placed. Multiple bowel regimens were attempted in order to induce a bowel movement and on the day of discharge, she had a moderate-sized bowel movement. The patient and her family were requested to consider to remain inpatient in order to induce further defecation. However, the patient became agitated and the family requested that the patient be discharged. The patient was provided multiple bowel regimen medications with detailed instructions on the discharge summary in order to treat her constipation and she was scheduled for an appointment with Urology a week following discharge in order to follow up on her urinary retention. MEDICATION LIST: New medications: Diltiazem 180 mg q.12 hours (the patient developed atrial fibrillation with RVR that was difficult to control despite being adherent to her nebivolol). Her atrial fibrillation with RVR was well controlled with initially Diltiazem drip and then oral transition as long as the patient remains calm. Levaquin 750 mg daily, MiraLAX 17 g daily if senna and docusate do not result in at least one bowel movement every other day. Senna and docusate one tab b.i.d. Maintenance in order to avoid constipation if more than two bowel movements per day. You can hold bisacodyl 10 mg rectal b.i.d. p.r.n. in case MiraLAX and senna docusate are insufficient to induce at least one bowel movement every other day. Continued medications: 1. Tramadol. 2. Omeprazole. 3. Potassium chloride. 4. Magnesium. 5. Cyclobenzaprine. 6. Apixaban. DISCONTINUED MEDICATIONS: Nebivolol. The patient and the family were requested to follow up with Cardiology in order to address restarting nebivolol. Job ID: [id number]
== END 2020-02-01 19:09 | disposition home or self-care (01) | DRG 872 ==
LOC: ERS 10:45 → 2NO 15:49
PROVIDERS: ADMIT Internal Medicine; ATTEND Internal Medicine
DX: A41.51 Sepsis due to Escherichia coli [E. coli] (principal); I69.354 Hemiplegia and hemiparesis following cerebral infarction affecting left non-dominant side; I48.91 Unspecified atrial fibrillation; G62.9 Polyneuropathy, unspecified; N18.3 Chronic kidney disease, stage 3 (moderate); R33.9 Retention of urine, unspecified; I12.9 Hypertensive chronic kidney disease with stage 1 through stage 4 chronic kidney disease, or unspecified chronic kidney disease; K59.00 Constipation, unspecified; I69.322 Dysarthria following cerebral infarction; Z79.01 Long term (current) use of anticoagulants; Z87.440 Personal history of urinary (tract) infections; Z91.81 History of falling; Z90.710 Acquired absence of both cervix and uterus; Z90.13 Acquired absence of bilateral breasts and nipples; Z98.42 Cataract extraction status, left eye; Z98.41 Cataract extraction status, right eye; Z87.442 Personal history of urinary calculi; Z88.5 Allergy status to narcotic agent; Z88.8 Allergy status to other drugs, medicaments and biological substances; Z88.1 Allergy status to other antibiotic agents; I69.328 Other speech and language deficits following cerebral infarction
CPT/HCPCS: 36415; 51701; 70450; 71045; 72170; 80048; 80053; 81003; 81015; 83605; 83735; 83880; 84484; 85025; 87040; 87077; 87086; 87149; 87186; 93005; 96361; 96365; A4353; J0692; J1630; J2185; J2543; J3370; J3490

== ENCOUNTER 2020-04-21 10:05 | Inpatient (IN) | payer MEDICARE, OTHER ==
[2020-04-21] MEDS ORDERED: Diltiazem HCl 125 MG, Admixture Fee 1 EACH in Sodium Chloride 0.9% 100 ML IVPB SCH (10:30)
--- NOTE | 2020-04-21 10:43 | RAD ---
EXAM: CHEST ONE VIEW HISTORY: Irregular heart rate. COMPARISON: 01/28/2020 FINDINGS: Cardiac silhouette is magnified by portable technique of the study. Pulmonary vasculature is within n ormal limits. The lungs are clear. Surgical clips again overlie the left axillary region. There has been no interval change from prior study. IMPRESSION: No acute cardiopulmonary process.
[2020-04-21 10:44] LABS: #Eosinphils 0.1 thou/uL (0.0-0.7); #Lymphocytes 2.8 thou/uL (1.20-3.40); #Monocytes 0.9 thou/uL (0.11-0.59); #Neutrophils 6.3 thou/uL (1.40-6.50); %Basophils 0.3 % (0.0-1.0); %Eosinophils 1.1 % (0.0-10.0); %Lymphocytes 27.5 % (21.0-51.0); %Monocytes 9.1 % (0.0-10.0); %Neutrophils 62.1 % (42.0-75.0); Hemoglobin 14.4 g/dL (12.0-16.0); Mean Corpuscular HGB CONC 31.6 g/dL (32.0-36.0); Mean Corpuscular Hemoglobin 29.1 pg (27.0-31.0); Mean Corpuscular Volume 91.9 fL (78.0-98.0); Mean Platelet Volume 7.7 fL (7.4-10.4); Platelet Count 280 thou/uL (130-400); RBC Distribution Width 13.5 % (11.5-14.5); Red Blood Cell (RBC) Count 4.97 mill/uL (4.20-5.40); White Blood Cell (WBC) Count 10.1 thou/uL (4.8-10.8)
[2020-04-21 11:08] LABS: ALT (SGPT) 12 U/L (8-55); AST (SGOT) 15 U/L (5-34); Alkaline Phosphatase 145 U/L (40-110); Anion Gap 12 mmol/L (10-20); BUN (Urea Nitrogen) 25 mg/dL (9.8-20.1); Bilirubin, Total 0.6 mg/dL (0.2-1.2); Calc. Creatinine Clearance 0 mL/min (70-130); Calcium 10.1 mg/dL (7.8-10.44); Carbon Dioxide 26 mmol/L (23-31); Chloride 107 mmol/L (98-107); Estimated GFR-MDRD 43; Globulin 2.9 g/dL (2.4-3.5); Glucose 101 mg/dL (83-110); Potassium 4.5 mmol/L (3.5-5.1); Protein, Total 6.9 g/dL (6.0-8.3); Sodium 140 mmol/L (136-145)
--- NOTE | 2020-04-21 15:28 | HP ---
PRIMARY CARE PHYSICIAN: Wolfgang Fair MD REASON FOR ADMISSION: Atrial fibrillation with rapid ventricular response. HISTORY OF PRESENT ILLNESS: This is an 85-year-old female, who has underlying history of chronic back pain as well as chronic atrial fibrillation, on chronic anticoagulation therapy, who presented to the emergency room for AFib with RVR. The patient was planned for cervical spine injection procedure by Dr. Moctezuma earlier today, where she had code green. The patient was taken for operation table and her heart rate jumped to 140 to 150s. The patient did not have any symptoms. The patient was given medication, but her heart rate was not under control and that is why the patient was referred to the emergency room. In the emergency room, the patient was given Cardizem bolus and Cardizem drip was started. Even after that, the patient's heart rate was not under control and that is why we decided to keep this patient in the hospital for admission. This patient has seen Dr. Efrain Laboy, emergency operator in recent past, and as per his recommendation, the patient was advised to continue medical therapy only. The patient also does not want any kind of aggressive intervention including procedure or cardioversion. When I saw this patient in the emergency room, her heart rate was still elevated and that is why Cardizem drip dose was increased. Per the patient, because of she was n.p.o. for procedure, she did not take any medication. The patient denies any chest pain or palpitation. REVIEW OF SYSTEMS: CONSTITUTIONAL: Negative for weight loss or gain, ability to conduct usual activities. SKIN: Negative for rash, itching. EYES: Negative for double vision, pain. ENT/MOUTH: Negative for nose bleeding, neck stiffness, pain, tenderness. CARDIOVASCULAR: Negative for palpitations, dyspnea on exertion, orthopnea. RESPIRATORY: Negative for shortness of breath, wheezing, cough, hemoptysis, fever or night sweats. GASTROINTESTINAL: Negative for poor appetite, abdominal pain, heartburn, nausea, vomiting, constipation, or diarrhea. GENITOURINARY: Negative for urgency, frequency, dysuria, nocturia. MUSCULOSKELETAL: Negative for pain, swelling. NEUROLOGIC/PSYCHIATRIC: Negative for anxiety, depression. ALLERGY/IMMUNOLOGIC: Negative for skin rash, bleeding tendency. Please see my HPI for pertinent positives and negatives. All other review of systems reviewed and negative except as mentioned in HPI. 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 PAST SURGICAL HISTORY: Hysterectomy, bilateral mastectomy, tonsillectomy, and cataract surgery. ALLERGIES: CEFAZOLIN, IBUPROFEN, AND MACROBID. CURRENT HOME MEDICATIONS: 1. Magnesium 250 mg p.o. daily. 2. Tramadol 50 mg q.4 hourly p.r.n. 3. Flexeril 5 mg t.i.d. p.r.n. 4. Colace 100 mg t.i.d. 5. Omeprazole 40 mg p.o. daily. 6. Eliquis 2.5 mg p.o. twice daily. 7. Cardizem CD 180 mg p.o. twice daily. 8. MiraLAX 17 g p.o. daily. 9. Potassium chloride 20 mEq p.o. daily. 10. Senokot 1 tablet twice daily. EMERGENCY ROOM COURSE: The patient is given Cardizem bolus and Cardizem drip. FAMILY HISTORY: Brother with chronic kidney disease. Sister with diabetes mellitus. SOCIAL HISTORY: The patient lives in [place], [place]. No history of tobacco, alcohol, or illicit drug abuse. She ambulates with a wheelchair. PAST PSYCHIATRIC HISTORY: Reviewed and negative. PHYSICAL EXAMINATION: VITAL SIGNS: On arrival, blood pressure 174/88, pulse 128 and irregular, respiratory rate 18, temperature 98.7, saturation 96% on room air. Weight 76.7 kg. GENERAL: The patient is currently alert, awake, chronically ill, dysarthric. No obvious acute distress. HEAD: Normocephalic, atraumatic. NECK: Supple. No JVD. No meningeal signs of irritation. LUNGS: Clear to auscultation without any rhonchi or rales. CARDIAC: S1 and S2. Irregularly irregular. No murmur. No gallop. No rub. ABDOMEN: Soft, bowel sounds present, nontender, nondistended. No organomegaly. No mass. EXTREMITIES: No edema. Good distal pulsation. SKIN: No skin rash. HEMATOLOGIC: No lymphadenopathy. NEUROLOGIC: The patient does have baseline deficit as well as old dysarthria. SIGNIFICANT LABORATORY DATA: CBC; WBC 10.1, hemoglobin 14.4, and platelets 280. BMP; sodium 140, potassium 4.5, BUN 25, creatinine 1.18, glucose 101, and calcium 10.1. LFT; AST 15, ALT 12, alkaline phosphatase 145, and albumin 4.0. Chest x-ray based on my review no acute cardiopulmonary process. EKG showing AFib with RVR. ASSESSMENT: 1. Atrial fibrillation with rapid ventricular response. 2. Chronic anticoagulation. 3. Chronic low back pain. 4. Chronic constipation. PLAN: Admission to telemetry floor. Cardizem drip at 10 mg/hour. Cardiology consultation. Her home medications will be reconciled. Code status discussed with the patient. The patient does not want any kind of resuscitation to be done in case of cardiopulmonary arrest and she requests DNR. The patient already had echocardiography recently done and that is why we will only obtain TSH. We will also check urinalysis. Plan of care discussed with the patient and family member at bedside. Job ID: [id number]
[2020-04-21 15:38] LABS: Troponin I Less than 0.010 ng/mL (< 0.028)
[2020-04-21] MEDS ORDERED: Sodium Chloride 0.65% Nasal 44 ML BOT EA NARE PRN (17:04)
[2020-04-21] MEDS ORDERED: Loratadine 10 MG TAB PO PRN (17:04)
[2020-04-21] MEDS ORDERED: Calcium Carbonate 500 MG ChewTAB PO PRN (17:04)
[2020-04-21] MEDS ORDERED: Cyclobenzaprine 10 MG TAB PO PRN (17:04)
[2020-04-21] MEDS ORDERED: Nitroglycerin 0.4 MG TAB (25 Tab Bottle) SL PRN (17:04)
[2020-04-21] MEDS ORDERED: Loperamide HCl 2 MG CAP PO PRN ×2 (17:04)
[2020-04-21] MEDS ORDERED: Senokot S 8.6-50 MG TAB PO PRN (17:04)
[2020-04-21] MEDS ORDERED: Ondansetron ODT 4 MG TAB PO PRN (17:04)
[2020-04-21] MEDS ORDERED: Ondansetron PF 4 MG/2 ML Vial IVP PRN (17:04)
[2020-04-21] MEDS ORDERED: Bisacodyl 10 MG SUPP PR PRN (17:04)
[2020-04-21] MEDS ORDERED: Acetaminophen 325 MG TAB PO PRN (17:04)
[2020-04-21] MEDS ORDERED: Labetalol HCl 100 MG/20 ML VIAL SLOW IVP PRN (17:04)
[2020-04-21] MEDS ORDERED: Cepastat Lozenges 1 LOZ PO PRN (17:04)
[2020-04-21] MEDS ORDERED: Zolpidem Tartrate 5 MG TAB PO PRN (17:04)
[2020-04-21 17:07] VITALS: BMI 26.8
[2020-04-21 18:29] LABS: Bacteria/HPF None Seen HPF (None Seen); Bilirubin Negative (Negative); Blood, Urine Negative (Negative); Clarity Clear (Clear); Glucose, Urine (Dipstick) Normal (Negative); Ketone, Urine Negative (Negative); Leukocyte Negative Leu/uL (Negative); Nitrite Negative (Negative); Protein, Urine (Dipstick) Negative (Neg-Trace); Specific Gravity, Urine 1.015 (1.002-1.036); Squamous Epithelial None Seen HPF (0-3); Urobilinogen Normal mg/dL (Less than 2); WBC/HPF 0-3 HPF (0-3)
[2020-04-21] MEDS: Apixaban 2.5 MG TAB PO SCH (21:12)
[2020-04-22] MEDS: traMADol HCl 50 MG TAB PO PRN ×2 (01:19→23:09)
[2020-04-22] MEDS: Diltiazem 125 MG in Sodium Chloride 0.9% 100 ML IVPB SCH ×2 (01:21→12:02)
[2020-04-22 04:30] LABS: #Basophils 0.1 thou/uL (0.0-0.2); #Eosinphils 0.1 thou/uL (0.0-0.7); #Lymphocytes 2.8 thou/uL (1.20-3.40); #Monocytes 1.3 thou/uL (0.11-0.59); #Neutrophils 5.8 thou/uL (1.40-6.50); %Basophils 0.6 % (0.0-1.0); %Eosinophils 1.1 % (0.0-10.0); %Lymphocytes 27.6 % (21.0-51.0); %Monocytes 12.9 % (0.0-10.0); %Neutrophils 57.8 % (42.0-75.0); Hemoglobin 13.2 g/dL (12.0-16.0); Mean Corpuscular HGB CONC 31.1 g/dL (32.0-36.0); Mean Corpuscular Hemoglobin 28.7 pg (27.0-31.0); Mean Corpuscular Volume 92.1 fL (78.0-98.0); Mean Platelet Volume 7.7 fL (7.4-10.4); Platelet Count 251 thou/uL (130-400); RBC Distribution Width 13.4 % (11.5-14.5)
[2020-04-22 04:49] LABS: Anion Gap 10 mmol/L (10-20); BUN (Urea Nitrogen) 23 mg/dL (9.8-20.1); Calc. Creatinine Clearance 46 mL/min (70-130); Calcium 9.4 mg/dL (7.8-10.44); Carbon Dioxide 21 mmol/L (23-31); Chloride 112 mmol/L (98-107); Estimated GFR-MDRD 51; Glucose 97 mg/dL (83-110); Sodium 139 mmol/L (136-145)
[2020-04-22] MEDS: Polyethylene Glycol 3350 17 GM Packet PO SCH (08:34)
[2020-04-22] MEDS: Apixaban 2.5 MG TAB PO SCH ×2 (08:35→21:00)
--- NOTE | 2020-04-22 09:47 | PDOC.HOSPP ---
- Subjective Encounter Date: 04/22/20 Encounter Time: 07:40 Subjective: Patient seen and examined bedside today, patient's son is present bedside, patient is on Cardizem drip, patient's heart rate is still not well controlled, patient subjectively does not have any complaint, - Objective Vital Signs & Weight: Vital Signs (12 hours) Temp Pulse Resp BP Pulse Ox 04/22/20 07:03 98.1 F 80 20 121/67 95 04/22/20 04:55 97.5 F L 80 16 113/54 L 94 L Weight Weight 163 lb 12.8 oz I&O: 04/21/20 04/22/20 04/23/20 06:59 06:59 06:59 Intake Total 120 Output Total 1 Balance 119 Result Diagrams: 04/22/20 04:11 04/22/20 04:11 EKG Reviewed by me: Yes (Atrial fibrillation with rapid ventricular response) Hospitalist ROS - Review of Systems Eyes: denies: pain, vision change, conjunctivae inflammation, eyelid inflammation, redness, other ENT: denies: ear pain, ear discharge, nose pain, nose discharge, nose congestion , mouth pain, mouth swelling, throat pain, throat swelling, other Respiratory: denies: cough, dry, shortness of breath, hemoptysis, SOB with excertion, pleuritic pain, sputum, wheezing, other Cardiovascular: denies: chest pain, palpitations, orthopnea, paroxysmal noc. dyspnea, edema, light headedness, other Gastrointestinal: denies: nausea, vomiting, abdominal pain, diarrhea, constipation, melena, hematochezia, other Genitourinary: denies: dysuria, frequency, incontinence, hematuria, retention, other Musculoskeletal: denies: neck pain, shoulder pain, arm pain, back pain, hand pain, leg pain, foot pain, other - Medication Medications: Active Medications Generic Name Dose Route Start Last Admin Trade Name Freq PRN Reason Stop Dose Admin Apixaban 2.5 mg 04/21/20 21:00 04/22/20 08:35 Eliquis PO 2.5 mg BID BROOKS Administration Diltiazem HCl 125 mg/ Sodium 125 mls @ 10 mls/hr 04/21/20 17:04 04/22/20 01: 21 Chloride IVPB 125 mls INF BROOKS Administration Protocol 10 MG/HR Pantoprazole Sodium 40 mg 04/22/20 09:00 04/22/20 08:35 Protonix PO 40 mg DAILY BROOKS Administration Polyethylene Glycol 17 gm 04/22/20 09:00 04/22/20 08:34 Miralax PO Not Given DAILY BROOKS Tramadol HCl 50 mg 04/21/20 17:04 04/22/20 01:19 Ultram PO 50 mg Q4H PRN Administration Moderate Pain (4-6) - Exam General Appearance: NAD, awake alert Eye: PERRL, anicteric sclera ENT: normocephalic atraumatic, no oropharyngeal lesions Neck: supple, symmetric, no JVD, no thyromegaly Heart: no murmur, no gallops, no rubs, irregular Respiratory: CTAB, no wheezes, no rales, no ronchi Gastrointestinal: soft, non-tender, non-distended, normal bowel sounds Extremities: no cyanosis, no clubbing Skin: normal turgor, no lesions Neurological: no new deficit, speech deficit Musculoskeletal: normal tone, normal strength Psychiatric: normal affect, normal behavior Hosp A/P - Plan old records reviewed/req, plan discussed w/ family, PT/OT Assessment Atrial fibrillation with rapid ventricular response Chronic anticoagulation Hypertension CKD stage III Gastroesophageal reflux disease Chronic constipation Chronic neck and back pain 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
--- NOTE | 2020-04-22 14:01 | CON ---
DATE OF CONSULTATION: 04/22/2020 PRIMARY CARE PHYSICIAN: Wolfgang Fair MD REASON FOR CONSULTATION: Atrial fibrillation with rapid ventricular response. HISTORY OF PRESENT ILLNESS: Ms. Huitron is a very pleasant 85-year-old white female with a history of permanent atrial fibrillation, stroke with residual left hemiparesis, hypertension, chronic kidney disease, and admission in October with UTI. She was at Dr. Moctezuma's office yesterday for a back and neck injection. Her heart rate increased to 140 to 150 beats per minute and sustained. She was sent to the emergency department where she was noted to be in atrial fibrillation with rapid ventricular response. Workup was unremarkable. She was placed on intravenous Cardizem and is now rate controlled. She has had frequent falls in the past, but none in the past few months. She has no orthopnea, dyspnea, or chest discomfort. PAST MEDICAL HISTORY: 1. Permanent atrial fibrillation. 2. Hypertension. 3. Stroke with residual left hemiparesis. 4. 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 5. Peripheral neuropathy. 6. Falls. 7. Breast cancer. 8. Chronic kidney disease, stage 3. PAST SURGICAL HISTORY: 1. Hysterectomy. 2. Bilateral mastectomy. 3. Tonsillectomy. 4. Cataract removal. ALLERGIES: IBUPROFEN AND MACROBID. OUTPATIENT MEDICATIONS: 1. Eliquis 2.5 mg b.i.d. 2. Cardizem CD 180 mg b.i.d. 3. Magnesium 250 mg daily. 4. Tramadol 50 mg q.4 h. p.r.n. 5. Flexeril 5 mg t.i.d. p.r.n. 6. Colace 100 mg t.i.d. 7. Omeprazole 40 mg p.o. daily. 8. MiraLAX 17 g p.o. daily. 9. Potassium chloride 20 mEq p.o. daily. 10. Senokot one tablet twice daily. FAMILY HISTORY: Positive for diabetes and chronic kidney disease. SOCIAL HISTORY: She lives alone in [place]. She has caregivers come to her home. Her daughter lives nearby and is with her today. No tobacco or alcohol. She uses a wheelchair. She does not ambulate. Her son has medical power of attorney at law. REVIEW OF SYSTEMS: Twelve-point review of systems is negative. PHYSICAL EXAMINATION: GENERAL: Alert and oriented x4, in no apparent distress. VITAL SIGNS: Afebrile, heart rate 80, respiratory rate 12, oxygen saturation 94% on room air, and blood pressure 113/54. LABORATORY DATA: WBC 10.1, hemoglobin 14.4, and platelets 280. Sodium 140, potassium 4.5, BUN 25, and creatinine 1.1. AST 15 and ALT 12. TSH normal. Echocardiogram on 11/10/2019; moderate left atrial enlargement, ejection fraction 50% to 55%, mild mitral regurgitation, mild aortic regurgitation, mild tricuspid regurgitation, mildly elevated pulmonary pressures. EKG with atrial fibrillation. IMPRESSION AND PLAN: 1. Permanent atrial fibrillation, initially with rapid ventricular response, now rate controlled with intravenous diltiazem. 2. Anticoagulation. No recent falls. 3. Left hemiparesis due to stroke. 4. Her code status is do not resuscitate/do not intubate. RECOMMENDATIONS: 1. Agree with initiating Cardizem CD 180 mg CD b.i.d. 2. Continue Eliquis 2.5 mg b.i.d. 3. Discontinue intravenous diltiazem tomorrow. If her heart rate is controlled, consider discharge home tomorrow. Job ID: [id number]
[2020-04-22 14:23] LABS: SARS-CoV-2 MS2 Positive; SARS-CoV-2 N Gene Negative; SARS-CoV-2 S Gene Negative; SARS-CoV-2 by NAA Not Detected (NotDetected); SARS-CoV-2 orf1ab Negative
[2020-04-22] MEDS: HYDROcodone/Acetaminophen 5/325 mg Tablet PO PRN (17:07)
[2020-04-23] MEDS: Diltiazem 125 MG in Sodium Chloride 0.9% 100 ML IVPB SCH (02:37)
[2020-04-23] MEDS: Polyethylene Glycol 3350 17 GM Packet PO SCH (08:29)
[2020-04-23] MEDS: Apixaban 2.5 MG TAB PO SCH (09:06)
[2020-04-23 10:53] LABS: Anion Gap 9 mmol/L (10-20); BUN (Urea Nitrogen) 24 mg/dL (9.8-20.1); Calc. Creatinine Clearance 38 mL/min (70-130); Calcium 9.7 mg/dL (7.8-10.44); Carbon Dioxide 24 mmol/L (23-31); Chloride 108 mmol/L (98-107); Estimated GFR-MDRD 43; Glucose 102 mg/dL (83-110); Magnesium 1.7 mg/dL (1.6-2.6); Potassium 4.2 mmol/L (3.5-5.1); Sodium 137 mmol/L (136-145)
[2020-04-23] MEDS: Magnesium Sulfate 4 GM in Sodium Chloride 0.9% 250 ML 250 ML IVPB SCH ×2 (12:43→13:39)
[2020-04-23] MEDS: HYDROcodone/Acetaminophen 5/325 mg Tablet PO PRN (14:40)
[2020-04-23 15:38] VITALS: BP 160/74; TEMP 98.2
--- NOTE | 2020-04-23 18:50 | DIS ---
DATE OF ADMISSION: 04/21/2020 DATE OF DISCHARGE: 04/23/2020 DISCHARGE DISPOSITION: Home. FOLLOWUP: 1. Follow up with primary care physician, Dr. Fair in 1 week. 2. Follow up with Dr. Efrain Laboy in 1 to 2 weeks. ALLERGIES: THE PATIENT IS ALLERGIC TO CEPHALOSPORINS, NITROFURANTOIN, AND IBUPROFEN. DISCHARGE MEDICATIONS: Same as admission medication. The patient was seen and examined on the day of discharge. Denies any new complaints. No chest pain, shortness of breath, or palpitations reported. BRIEF HOSPITAL COURSE: The patient is an 85-year-old female, who presented to the emergency room with palpitations. She was scheduled for a cervical spine injection procedure by Dr. Moctezuma. However, she was found to have heart rate in 140s to 150s. For this reason, jose green was called. She was subsequently taken to the emergency room. She was started on Cardizem drip after a Cardizem bolus. Anticoagulation was restarted. The patient was evaluated by Electrophysiology, Dr. Efrain Laboy. This morning, the patient developed bradycardia with heart rate in 30s, after which Cardizem drip was discontinued. Heart rate has remained stable on her home dose of Cardizem CD 180 mg b.i.d. I discussed with Electrophysiology, Dr. Efrain Laboy, who agrees with the above plan of care. DIAGNOSTIC TESTS: Echocardiogram showed ejection fraction 50% to 55% with left atrium moderate dilatation with mild mitral regurgitation, mild tricuspid regurgitation. FINAL DIAGNOSES: 1. Atrial fibrillation with rapid ventricular response. 2. Chronic anticoagulation. 3. Hypertension. 4. Gastroesophageal reflux disease. 5. Chronic kidney disease stage 3. 6. Chronic neck/back pain. 7. Chronic constipation. 8. 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 The patient and the family understand the above plan of care. Job ID: [id number]
== END 2020-04-23 17:10 | disposition home or self-care (01) | DRG 309 ==
LOC: ERS 10:05 → 2NO 17:04
PROVIDERS: ADMIT Internal Medicine; ATTEND Internal Medicine
DX: I48.21 Permanent atrial fibrillation (principal); I69.354 Hemiplegia and hemiparesis following cerebral infarction affecting left non-dominant side; I48.20 Chronic atrial fibrillation, unspecified; R00.1 Bradycardia, unspecified; I08.1 Rheumatic disorders of both mitral and tricuspid valves; K21.9 Gastro-esophageal reflux disease without esophagitis; N18.3 Chronic kidney disease, stage 3 (moderate); R47.1 Dysarthria and anarthria; G62.9 Polyneuropathy, unspecified; Z66 Do not resuscitate; R29.6 Repeated falls; I12.9 Hypertensive chronic kidney disease with stage 1 through stage 4 chronic kidney disease, or unspecified chronic kidney disease; G89.29 Other chronic pain; K59.09 Other constipation; Z79.01 Long term (current) use of anticoagulants; Z90.710 Acquired absence of both cervix and uterus; Z90.13 Acquired absence of bilateral breasts and nipples; Z88.6 Allergy status to analgesic agent; Z88.8 Allergy status to other drugs, medicaments and biological substances; Z98.42 Cataract extraction status, left eye; Z98.41 Cataract extraction status, right eye
CPT/HCPCS: 36415; 71045; 80048; 80053; 81001; 83735; 84443; 84484; 85025; 87635; 93005; 93306; 94760; 96361; 96365; 96366; 96374; 99212; G0463; J2250; J3475; J3490; J7050; U0003

== ENCOUNTER 2020-07-22 18:40 | Emergency (ER) | payer MEDICARE ==
[2020-07-22] MEDS ORDERED: Morphine 4 MG/ML VIAL ONE (19:18)
[2020-07-22 19:20] LABS: #Basophils 0.1 thou/uL (0.0-0.2); #Eosinphils 0.1 thou/uL (0.0-0.7); #Lymphocytes 3.7 thou/uL (1.20-3.40); #Monocytes 1.3 thou/uL (0.11-0.59); #Neutrophils 7.1 thou/uL (1.40-6.50); %Basophils 0.9 % (0.0-1.0); %Eosinophils 0.9 % (0.0-10.0); %Lymphocytes 30.1 % (21.0-51.0); %Monocytes 10.4 % (0.0-10.0); %Neutrophils 57.7 % (42.0-75.0); Hemoglobin 14.9 g/dL (12.0-16.0); Mean Corpuscular HGB CONC 32.9 g/dL (32.0-36.0); Mean Corpuscular Hemoglobin 29.7 pg (27.0-31.0); Mean Corpuscular Volume 90.4 fL (78.0-98.0); Mean Platelet Volume 7.3 fL (7.4-10.4); Platelet Count 322 thou/uL (130-400); RBC Distribution Width 12.6 % (11.5-14.5); Red Blood Cell (RBC) Count 5.03 mill/uL (4.20-5.40); White Blood Cell (WBC) Count 12.3 thou/uL (4.8-10.8)
[2020-07-22 19:37] LABS: ALT (SGPT) 22 U/L (8-55); AST (SGOT) 13 U/L (5-34); Albumin 3.8 g/dL (3.4-4.8); Alkaline Phosphatase 145 U/L (40-110); Anion Gap 18 mmol/L (10-20); BUN (Urea Nitrogen) 23 mg/dL (9.8-20.1); Bilirubin, Total 0.3 mg/dL (0.2-1.2); CK (CPK) 22 U/L (29-168); Calc. Creatinine Clearance 0 mL/min (70-130); Calcium 10.2 mg/dL (7.8-10.44); Carbon Dioxide 19 mmol/L (23-31); Chloride 108 mmol/L (98-107); Estimated GFR-MDRD 41; Globulin 3.3 g/dL (2.4-3.5); Glucose 129 mg/dL (83-110); Potassium 4.4 mmol/L (3.5-5.1); Protein, Total 7.1 g/dL (6.0-8.3); Sodium 141 mmol/L (136-145)
--- NOTE | 2020-07-22 19:54 | CT ---
CT Stone Protocol 07/22/2020 7:25 PM HISTORY: Left flank pain. COMPARISON: 08/16/2018 Technique: Multiple contiguous axial CT images are obtained through the abdomen and pelvis without IV contrast. Coronal reformats are provided. FINDINGS: This examination is limited for the evaluation of solid organs and vascular structures due to the lac k of intravenous contrast. Lower Chest: There is bibasilar linear scarring and/or atelectasis. The heart is mildly enlarged. Vas cular calcifications are seen in the coronary arteries and visualized lower thoracic aorta. Liver: A 1 cm hypodense lesion is seen within the right hepatic lobe adjacent to the gallbladder also seen on prior study and statistically likely represents a cyst. Gallbladder: Gallbladder calculi are again visualized. Pancreas: Fatty replaced. Spleen: Calcified granuloma present. Adrenals: Mild symmetric and stable nonspecific adrenal thickening. Kidneys, ureters, urinary bladder: Multiple 2 to 3 mm nonobstructing renal calculi are seen bilateral ly. No ureteral calculus is visualized, and there is no evidence of hydronephrosis. There are stable hypodense renal lesions bilaterally likely attributable to bilateral renal cysts. An increased density 1.8 cm lobulated area is seen at the anterior aspect midportion left kidney which was also present on the prior examination and measured 1.3 cm. This is larger in size and demonstrates mild in creased density on this exam. Urinary bladder has a normal CT appearance. Reproductive Organs: Evidence of hysterectomy. Lymph Nodes: No enlarged lymph nodes. Bowel: Evidence of colonic diverticulosis. Small amount retained fecal material is seen throughout th e colon. Loops of small bowel are normal in caliber. Appendix: Not visualized, but no secondary signs are seen to suggest appendicitis on this nonenhanced CT abdomen and pelvis. Peritoneum: No free fluid, free air, or fluid collection. Retroperitoneum: within normal limits. Vessels: Dense vascular calcifications in the abdominal aorta and iliac arteries.. Abdominal Wall: Tiny fat-containing umbilical hernia present. There is suggested soft tissue prominen ce in the perineum and at the level of the the anus, but this is stable compared to multiple prior studies dating back to 2012 and is probably within normal limits for the patient. There is an increas ed density lesion to the left of midline in this region measuring 1.9 cm which is stable compared to multiple prior studies as well and is overall nonspecific. This could potentially represent hyperd ense Bartholin's gland cyst. Bones: Multilevel degenerative changes are seen in the spine. IMPRESSION: 1. Interval enlargement of an increased density lesion anterior aspect midportion left kidney. This m ay represent enlargement of a hyperdense Bosniak type II renal cyst, but follow-up CT examination with and without IV contrast on a nonemergent basis is recommended for further evaluation. 2. Bilateral renal cysts. 3. Nonobstructing bilateral renal calculi. There is no hydronephrosis or ureteral calculi seen. 4. Additional findings as described above. No acute findings are seen on this nonenhanced CT abdomen and pelvis.
[2020-07-22 21:57] LABS: Bacteria/HPF 4+ HPF (None Seen); Bilirubin Negative (Negative); Blood, Urine Trace (Negative); Clarity Turbid (Clear); Glucose, Urine (Dipstick) Normal (Negative); Ketone, Urine Negative (Negative); Leukocyte 500 Leu/uL (Negative); Nitrite Negative (Negative); Protein, Urine (Dipstick) 10 mg/dL (Neg-Trace); RBC/HPF 21-50 HPF (0-3); Renal Epithelial 0-3 HPF (None Seen); Specific Gravity, Urine 1.015 (1.002-1.036); Squamous Epithelial 0-3 HPF (0-3); Urobilinogen Normal mg/dL (Less than 2); WBC/HPF Greater than 50 HPF (0-3); pH, Urine 6.5 (5.0-9.0)
--- NOTE | 2020-07-26 14:24 | EKG ---
Test Reason : Blood Pressure : / mmHG Vent. Rate : 120 BPM Atrial Rate : 141 BPM P-R Int : 000 ms QRS Dur : 088 ms QT Int : 318 ms P-R-T Axes : 000 -69 064 degrees QTc Int : 449 ms Atrial fibrillation with rapid ventricular response with premature ventricular or aberrantly conducte d complexes Left axis deviation Pulmonary disease pattern RSR' or QR pattern in V1 suggests right ventricular conduction delay Junctional ST depression, probably normal Abnormal ECG Confirmed by DAMARIS MONTALVO DO ([id number]), food expeditor MAIN ABBOTT ([id number]) on 07/26/2020 2:23:58 PM Referred By: Confirmed By:DAMARIS MONTALVO DO
== END 2020-07-22 22:59 | disposition home or self-care (01) ==
LOC: ERS 18:40
DX: R10.32 Left lower quadrant pain (principal); R82.71 Bacteriuria; I10 Essential (primary) hypertension; G62.9 Polyneuropathy, unspecified; I48.91 Unspecified atrial fibrillation; Z79.891 Long term (current) use of opiate analgesic; Z79.01 Long term (current) use of anticoagulants; Z86.73 Personal history of transient ischemic attack (TIA), and cerebral infarction without residual deficits; Z79.1 Long term (current) use of non-steroidal anti-inflammatories (NSAID); Z85.3 Personal history of malignant neoplasm of breast; Z79.899 Other long term (current) drug therapy; Z87.442 Personal history of urinary calculi
CPT/HCPCS: 36415; 74176; 80053; 81003; 81015; 82550; 84484; 85025; 87086; 93005; 96374; 96375; J2270

== ENCOUNTER 2020-11-13 13:57 | Observation (INO) | payer MEDICARE ==
[2020-11-13] MEDS ORDERED: Magnesium 2 GM/50 ML BAG (IN WATER) ONE (14:30)
[2020-11-13] MEDS ORDERED: Lorazepam 2 MG/ML VIAL ONE (14:30)
[2020-11-13] MEDS ORDERED: Fentanyl 100 MCG/2 ML VIAL ONE (14:30)
[2020-11-13 14:40] LABS: #Basophils 0.1 thou/uL (0.0-0.2); #Eosinphils 0.1 thou/uL (0.0-0.7); #Lymphocytes 2.9 thou/uL (1.20-3.40); #Monocytes 1.3 thou/uL (0.11-0.59); #Neutrophils 6.4 thou/uL (1.40-6.50); %Basophils 0.9 % (0.0-1.0); %Eosinophils 0.9 % (0.0-10.0); %Lymphocytes 26.7 % (21.0-51.0); %Monocytes 12.3 % (0.0-10.0); %Neutrophils 59.1 % (42.0-75.0); Hemoglobin 14.7 g/dL (12.0-16.0); Mean Corpuscular HGB CONC 32.4 g/dL (32.0-36.0); Mean Corpuscular Hemoglobin 30.1 pg (27.0-31.0); Mean Corpuscular Volume 93.1 fL (78.0-98.0); Mean Platelet Volume 7.3 fL (7.4-10.4); Platelet Count 276 thou/uL (130-400); RBC Distribution Width 12.6 % (11.5-14.5); Red Blood Cell (RBC) Count 4.88 mill/uL (4.20-5.40); White Blood Cell (WBC) Count 10.8 thou/uL (4.8-10.8)
[2020-11-13 15:08] LABS: ALT (SGPT) 17 U/L (8-55); AST (SGOT) 22 U/L (5-34); Albumin 3.7 g/dL (3.4-4.8); Alkaline Phosphatase 137 U/L (40-110); Anion Gap 18 mmol/L (10-20); BUN (Urea Nitrogen) 17 mg/dL (9.8-20.1); Bilirubin, Total 0.4 mg/dL (0.2-1.2); CK (CPK) 29 U/L (29-168); Calc. Creatinine Clearance 0 mL/min (70-130); Calcium 9.5 mg/dL (7.8-10.44); Carbon Dioxide 17 mmol/L (23-31); Chloride 108 mmol/L (98-107); Globulin 3.3 g/dL (2.4-3.5); Glucose 112 mg/dL (83-110); Lipase 15 U/L (8-78); Potassium 4.7 mmol/L (3.5-5.1); Sodium 138 mmol/L (136-145)
--- NOTE | 2020-11-13 16:35 | CT ---
EXAM: CT of the lumbar spine without contrast HISTORY: Chronic low back pain. Patient took tramadol and cyclobenzaprine COMPARISON: MRI lumbar spine 09/24/2016 TECHNIQUE: Multiple contiguous axial images were obtained in a CT of the lumbar spine without contras t. Sagittal and coronal reformats were performed. FINDINGS: The vertebral bodies and intervertebral discs demonstrate normal height and alignment witho ut fracture or subluxation. . Moderate degenerative changes are seen throughout the lumbar spine. These have not significantly changed compared to the MRI from 2017. There is moderate bilateral bony neural foraminal stenosis at L4/5. No bony narrowing of the central canal. Atherosclerotic calcifications are seen in the aorta. There is a cyst in the each kidney. Calcificat ions in the hilar region of both kidneys likely represent vascular calcifications.. The prevertebral and paraspinal soft tissues are unremarkable. IMPRESSION: There are moderate stable degenerative changes of the lumbar spine when compared to prior MRI from 2017. No acute fracture or subluxation is seen.
--- NOTE | 2020-11-13 16:44 | CT ---
Thoracic spine CT: 11/13/2020 HISTORY: Chronic back pain, trauma TECHNIQUE: Axial CT imaging at 1.25 mm intervals through the thoracic spine without contrast. Coronal and sagittal reformatted imaging obtained. FINDINGS: No thoracic spine anterolisthesis or retrolisthesis. Evaluation for central canal and/or neural foraminal stenosis is limited on routine CT. There is no o sseous cause of significant central canal or neural foraminal stenosis within the thoracic spine. There is a lytic lesion within the T8 vertebral body with findings consistent with a benign hemangiom a. There is an additional lytic lesion within the the 10 vertebral body posteriorly/laterally on the left approaching the left pedicle measuring 1.5 cm in AP dimension, a nonspecific lesion which is stable when compared to an abdomen pelvis CT performed 08/16/2018. Stability suggests a benign etiology, such as an additional hemangioma. There are nonspecific coarse linear densities within the lingula and the left lower lobe, likely on t he basis of scar or volume loss. Mild left basilar infiltrate cannot be excluded. Limited assessment of the vascular structures demonstrates scattered atherosclerotic calcification of the tho racic aorta. Motion artifact limits assessment of the upper abdomen. Incompletely evaluated bilateral renal cysts are suspected. Calcifications within bilateral kidneys suggest a combination of renal stone disease and atherosclerotic disease. Calcified gallstones are present. There is fatty atrophy of the pancreas . IMPRESSION: No acute fracture or dislocation within the thoracic spine. Multiple additional/incidenta l findings as described above.
--- NOTE | 2020-11-13 17:24 | PDOC.HHP ---
Hospitalist HPI Intractable back pain and neck pain History of Present Illness: 85-year-old female who has chronic neck and back pain, patient is following pain specialist, last year in May patient was plan for intervention in her back but while doing procedure patient developed A. fib with RVR so procedure was postponed, since then patient has not seen pain management clinic, patient was controlling her pain with the tramadol and Flexeril, For last 1 and half week patient has worsening of pain, she was requiring severa l doses of tramadol and Flexeril without any pain relief, she has also on and off constipation, patient denies any fall, patient's pain was not controlled so family member decided to bring her to emergency room for evaluation. Initially in emergency room patient was found with A. fib with RVR, she was saturating normal, she was hemodynamically stable, she was given Cardizem 20 mg IV push and after that her rate was under control, patient is also on chronic anticoagulation with Eliquis, Today in the emergency room patient had routine blood test done which showed normal CBC, creatinine 1.36 which is baseline for patient, her BNP slightly elevated and her troponin is negative, thoracic spine CT scan showed no acute fracture or dislocation but patient was found with lytic lesions within T8 v ertebral body which was consistent with hemangioma and similarly patient also had a similar lytic lesion at T10 vertebral body which was also consistent with hemangioma, patient had CT lumbar spine which showed L4-L5 foraminal stenosis, without any fracture or dislocation. In emergency room patient was given pain medicine and subsequently we decided to keep this patient in hospital for pain control. Family member reports that patient does not like to stay in hospital more than 1 midnight, patient gets more confused while in hospital, they prefer her to go home at least tomorrow. Patient's family member also requesting sitter bedside, patient has caregiver at her home. ED Course: Cardizem 20 mg IV push Ativan 2 mg and a fentanyl 100 mcg patient is given 500 mils IV fluid magnesium sulfate Allergies/Adverse Reactions: Allergy/AdvReac Type Severity Reaction Status Date / Time cefazolin [From Ancef] Allergy Intermediate Rash Verified 04/21/20 18:17 cephalexin Allergy Verified 04/21/20 18:17 ibuprofen Allergy NOT SURE Verified 04/21/20 18:14 OF REACTION nitrofurantoin Allergy Verified 08/03/20 18:17 [From Macrobid] Home Medications: Medication Instructions Recorded Confirmed Type traMADol HCl [Tramadol HCl] 50 mg PO Q4HR PRN 09/23/16 04/21/20 History Omeprazole 40 mg PO DAILY 08/16/18 04/21/20 History Potassium Chloride [K-Dur] 20 meq PO QAM-WM tab 08/26/18 04/21/20 Rx Cyclobenzaprine [Flexeril] 5 mg PO TID PRN 11/09/19 04/21/20 History Docusate Sodium [Stool Softener] 100 mg PO BID 11/09/19 04/21/20 History Magnesium 250 mg PO Q2DAYS 11/09/19 04/21/20 History Apixaban [Eliquis] 2.5 mg PO BID #60 tab 11/13/19 04/21/20 Rx Bisacodyl [Dulcolax] 10 mg LA BID PRN #30 supp 02/01/20 04/21/20 Rx Diltiazem HCl [Cardizem CD] 180 mg PO Q12H #60 cap 02/01/20 04/21/20 Rx Polyethylene Glycol 3350 [Miralax] 17 gm PO DAILY #30 pk 02/01/20 04/21/20 Rx Sennosides/Docusate Sodium 1 tab PO BID 04/21/20 04/21/20 History [Senokot S] Past History: Past medical history Hypertension CKD stage III History of breast cancer History of TIA and stroke Chronic atrial fibrillation Physical deconditioning Past surgical history Hysterectomy, mastectomy of the right breast and left breast, Tonsillectomy Cataract surgery Bladder repair Past psychiatric history Reviewed and negative Family history No strong family history of premature coronary artery disease stroke or cancer Social history Patient lives at home, patient has caregiver, no history of tobacco alcohol or illicit drug abuse Hospitalist HPI ROS Constitutional: reports: weakness Eyes: denies: pain, vision change, conjunctivae inflammation, eyelid inflam mation, redness, other ENT: denies: ear pain, ear discharge, nose pain, nose discharge, nose congestion, mouth pain, mouth swelling, throat pain, throat swelling, other Respiratory: denies: cough, dry, shortness of breath, hemoptysis, SOB with excertion, pleuritic pain, sputum, wheezing, other Cardiovascular: reports: edema. denies: chest pain, palpitations, orthopnea, paroxysmal noc. dyspnea, light headedness, other Gastrointestinal: reports: constipation. denies: nausea, vomiting, abdominal pain, diarrhea, melena, hematochezia, other Genitourinary: denies: dysuria, frequency, incontinence, hematuria, retention, other Musculoskeletal: reports: neck pain, back pain. denies: shoulder pain, arm pain, hand pain, leg pain, foot pain, other Skin: denies: rash, lesions, yemi, bruising, other Hospitalist Exam General Appearance: NAD General - other findings: Patient is sleepy but arousable, Eye: PERRL, anicteric sclera ENT: normocephalic atraumatic, no oropharyngeal lesions Neck: supple, symmetric, no JVD, no thyromegaly Heart: no murmur, no gallops, no rubs, irregular Respiratory: no wheezes, no rales, no ronchi Gastrointestinal: soft, non-tender, non-distended, normal bowel sounds Extremities: 1+ LE edema Skin: normal turgor, no lesions Neurological: no focal deficits Musculoskeletal: normal tone, normal strength Psychiatric: normal affect, normal behavior Hospitalist Results Result Diagrams: 11/13/20 14:11/13/20 14: Lab results: Laboratory Last Values WBC 10.8 thou/uL (4.8-10.8) 11/13/20 14: RBC 4.88 mill/uL (4.20-5.40) 11/13/20 14: Hgb 14.7 g/dL (12.0-16.0) 11/13/20 14: Hct 45.4 % (36.0-47.0) 11/13/20 14: MCV 93.1 fL (78.0-98.0) 11/13/20 14: MCH 30.1 pg (27.0-31.0) 11/13/20 14: MCHC 32.4 g/dL (32.0-36.0) 11/13/20 14: RDW 12.6 % (11.5-14.5) 11/13/20 14: Plt Count 276 thou/uL (130-400) 11/13/20 14: MPV 7.3 fL (7.4-10.4) L 11/13/20 14:27 Neutrophils % 59.1 % (42.0-75.0) 11/13/20 14: Lymphocytes % 26.7 % (21.0-51.0) 11/13/20 14: Monocytes % 12.3 % (0.0-10.0) H 11/13/20 14: Eosinophils % 0.9 % (0.0-10.0) 11/13/20 14: Basophils % 0.9 % (0.0-1.0) 11/13/20 14:27 Neutrophils # 6.4 thou/uL (1.40-6.50) 11/13/20 14: Lymphocytes # 2.9 thou/uL (1.20-3.40) 11/13/20 14: Monocytes # 1.3 thou/uL (0.11-0.59) H 11/13/20 14: Eosinophils # 0.1 thou/uL (0.0-0.7) 11/13/20 14: Basophils # 0.1 thou/uL (0.0-0.2) 11/13/20 14:27 Sodium 138 mmol/L (136-145) 11/13/20 14:27 Potassium 4.7 mmol/L (3.5-5.1) 11/13/20 14: Chloride 108 mmol/L (98-107) H 11/13/20 14:27 Carbon Dioxide 17 mmol/L (23-31) L 11/13/20 14: Anion Gap 18 mmol/L (10-20) 11/13/20 14:27 BUN 17 mg/dL (9.8-20.1) 11/13/20 14:27 Creatinine 1.36 mg/dL (0.6-1.1) H 11/13/20 14:27 Estimated GFR (MDRD) 37 11/13/20 14:27 Glucose 112 mg/dL (83-110) H 11/13/20 14:27 Calcium 9.5 mg/dL (7.8-10.44) 11/13/20 14:27 Total Bilirubin 0.4 mg/dL (0.2-1.2) 11/13/20 14:27 AST 22 U/L (5-34) 11/13/20 14:27 ALT 17 U/L (8-55) 11/13/20 14:27 Alkaline Phosphatase 137 U/L (40-110) H 11/13/20 14:27 Creatine Kinase 29 U/L (29-168) 11/13/20 14:27 Troponin I 0.012 ng/mL (< 0.028) 11/13/20 14:27 B-Natriuretic Peptide 197.5 pg/mL (0-100) H 11/13/20 14:27 Serum Total Protein 7.0 g/dL (5.8-8.1) 11/13/20 14:27 Albumin 3.7 g/dL (3.4-4.8) 11/13/20 14:27 Globulin 3.3 g/dL (2.4-3.5) 11/13/20 14:27 Albumin/Globulin Ratio 1.1 g/dL (1.2-2.2) L 11/13/20 14:27 Lipase 15 U/L (8-78) 11/13/20 14:27 Other Status: image reviewed by me Additional Comments: CT thoracic spine showing hemangioma ofT8 and T10 vertebral body CT lumbar spine showing L4-L5 neural foraminal stenosis Hospitalist H&P A/P (1) Intractable low back pain Code(s): M54.5 - LOW BACK PAIN Status: Acute (2) Atrial fibrillation with rapid ventricular response Code(s): I48.91 - UNSPECIFIED ATRIAL FIBRILLATION Status: Acute (3) Generalized weakness Code(s): R53.1 - WEAKNESS Status: Acute (4) Physical deconditioning Code(s): R53.81 - OTHER MALAISE Status: Acute (5) Diastolic congestive heart failure Code(s): I50.30 - UNSPECIFIED DIASTOLIC (CONGESTIVE) HEART FAILURE Status: Chronic Qualifiers: Heart failure chronicity: chronic Qualified Code(s): I50.32 - Chronic diastolic (congestive) heart failure (6) Essential (primary) hypertension Code(s): I10 - ESSENTIAL (PRIMARY) HYPERTENSION Status: Chronic (7) H/O TIA (transient ischemic attack) and stroke Code(s): Z86.73 - PRSNL HX OF TIA (TIA), AND CEREB INFRC W/O RESID DEFICITS Status: Chronic (8) H/O malignant neoplasm of breast Code(s): Z85.3 - PERSONAL HISTORY OF MALIGNANT NEOPLASM OF BREAST Status: Chronic Plan: Observation to telemetry floor Cardiology consultation for preoperative evaluation and atrial fibrillation, patient family member wants her to follow-up with pain management clinic for her back procedure, patient is on Eliquis as well as she has intermittent A. fib with RVR, will get preoperative evaluation so pain clinic decide if any procedure required to control her intractable back pain, will hold on Eliquis therapy in view of possible any procedure on her back We will consult pain management in this regard, family member concern about intractable back pain and overuse of tramadol and other pain medication, will defer any procedure to pain management I have reconciled her home medication Bedside sitter will be arranged per family request PT OT and pain control with morphine and muscle relaxant with Flexeril Stool softener for constipation DVT prophylaxis SCD GI prophylaxis Protonix CODE STATUS patient is full code Disposition plan based on clinical course likely within 24 hours
[2020-11-13] MEDS ORDERED: Ondansetron ODT 4 MG TAB PO PRN (17:52)
[2020-11-13] MEDS ORDERED: Loperamide HCl 2 MG CAP PO PRN (17:52)
[2020-11-13] MEDS ORDERED: Guaifenesin DM 100-10/5 ML UDCUP PO PRN (17:52)
[2020-11-13] MEDS ORDERED: Acetaminophen 325 MG TAB PO PRN (17:52)
[2020-11-13] MEDS ORDERED: Cyclobenzaprine 10 MG TAB PO PRN (17:52)
[2020-11-13] MEDS ORDERED: Zolpidem Tartrate 5 MG TAB PO PRN (17:52)
[2020-11-13] MEDS ORDERED: Cepastat Lozenges 1 LOZ PO PRN (17:52)
[2020-11-13] MEDS ORDERED: Senokot S 8.6-50 MG TAB PO PRN ×2 (17:52)
[2020-11-13] MEDS ORDERED: Morphine 2 MG/ML VIAL SLOW IVP PRN (17:52)
[2020-11-13] MEDS ORDERED: hydrALAZINE 20 MG/ML VIAL SLOW IVP PRN (17:52)
[2020-11-13] MEDS ORDERED: Bisacodyl 10 MG SUPP PR PRN (17:52)
[2020-11-13] MEDS ORDERED: HYDROcodone/Acetaminophen 7.5/325 mg Tablet PO PRN (17:52)
[2020-11-13] MEDS ORDERED: Sodium Chloride 0.65% Nasal 44 ML BOT EA NARE PRN (17:52)
[2020-11-13] MEDS ORDERED: Loratadine 10 MG TAB PO PRN (17:52)
[2020-11-13] MEDS ORDERED: Ondansetron PF 4 MG/2 ML Vial IVP PRN (17:52)
[2020-11-13] MEDS ORDERED: Calcium Carbonate 500 MG ChewTAB PO PRN (17:52)
[2020-11-13 21:44] VITALS: BMI 26.9
[2020-11-14 05:02] LABS: ALT (SGPT) 14 U/L (8-55); AST (SGOT) 16 U/L (5-34); Alkaline Phosphatase 112 U/L (40-110); Anion Gap 12 mmol/L (10-20); BUN (Urea Nitrogen) 14 mg/dL (9.8-20.1); Bilirubin, Total 0.4 mg/dL (0.2-1.2); Calc. Creatinine Clearance 45 mL/min (70-130); Carbon Dioxide 20 mmol/L (23-31); Chloride 110 mmol/L (98-107); Globulin 2.6 g/dL (2.4-3.5); Glucose 90 mg/dL (83-110); Potassium 4.5 mmol/L (3.5-5.1); Protein, Total 5.6 g/dL (5.8-8.1); Sodium 137 mmol/L (136-145)
[2020-11-14 05:15] LABS: SARS-CoV-2 PCR by NAA Not Detected (NotDetected)
--- NOTE | 2020-11-14 06:59 | PDOC.BPN ---
- Brief Progress Note Encounter Date: 11/14/20 Encounter Time: 06:56 Formal EP consult to follow. Ms. Huitron is well known to our practice, followed routinely for Chronic AF. Well documented hx of RVR during periods of stress/pain/infection. Typically rate well controlled. Increasing rate controlling medications usually results in hypotension and bradycardia as an outpatient. Agree with holding Eliquis as needed for any surgical/procedural interventions. Can use prn IV pushes of beta-kin, CCB or digoxin as needed during acute hospital stay. No further cardiac work-up needed prior to pain management interventions. Thank you for this consult.
[2020-11-14] MEDS ORDERED: Polyethylene Glycol 3350 17 GM Packet PO SCH (09:00)
--- NOTE | 2020-11-14 10:44 | CON ---
DATE OF CONSULTATION: 11/14/2020 PCP: Dr. Wolfgang Fair. HISTORY OF PRESENT ILLNESS: Ms. Huitron is a pleasant 85-year-old female patient of ours, whom we follow routinely in clinic. 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 She is admitted for intractable back pain. Also noted to have RVR in the setting of significant pain. She has repetitive history of inpatient admissions for atrial fibrillation with RVR. Typically these are with secondary issues of UTI, back pain, etc. In the ER, she was given pain medication as well as Ativan with subsequent improvement in her rate control. This morning, she is lying in bed comfortably with a heart rate of 67, chronic AF. Family member (Stephania), the [id number] is accompanying her as she is the primary caregiver. She has a long history of low back pain that flares up into severe pain. She is followed by Dr. Moctezuma locally for pain management. There were plans for outpatient procedure in last May, but due to episode of RVR, she was admitted instead of having the back injections. She has been reluctant to proceed with these due to concerns for repeat admission. On day of admission to the hospital, she was having significant back pain. Her [id number], Stephania, reports that she was screaming and crying at home, which prompted the ER evaluation. This is apparently a 2 to 3 times a year occurrence. In general, her rate is very well controlled. In fact, in the past, we have had issues with bradycardia and hypotension when we tried to escalate her rate-controlling medications. She remains on Eliquis 2.5 mg twice a day at home without any bleeding or black stools. Her most recent echocardiogram was in April, showing normal LV function with moderate LAE and minimal valve issues. REVIEW OF SYSTEMS: As per above, significant low back pain, chronic muscle weakness secondary to CVA, mild MCCLURE/shortness of breath. PAST MEDICAL HISTORY: Known hypertension, CKD stage 3, history of breast cancer, history of CVA as mentioned above, chronic AF, pronounced physical deconditioning. MEDICATIONS: As outpatient; 1. Diltiazem 180 mg twice a day. 2. Eliquis 2.5 mg twice a day. 3. Tramadol 50 mg p.r.n. 4. Flexeril 10 mg p.r.n. 5. Potassium 20 mEq daily. 6. She takes Senokot and Tylenol as needed. PHYSICAL EXAMINATION: GENERAL: Alert and pleasant, at present time difficulty with speech due to her expressive aphasia; however, very aware of her situation. HEENT: Sclerae are nonicteric. NECK: Soft and supple. No JVD. RESPIRATORY: Essentially clear throughout. Some mild bibasilar crackles. CARDIOVASCULAR: Known atrial fibrillation, rate is controlled. No audible murmur. ABDOMEN: Soft and nontender. EXTREMITIES: Trace peripheral edema at most. SKIN: She has a wound on her right elbow with an intact dressing. No active bleeding noted. NEUROPSYCH: As mentioned above, chronic issues are noted. No acute issues identified. She is appropriate in her judgment and thought today. DIAGNOSTIC STUDIES: Telemetry, atrial fibrillation with a rate of 72 at present time. PERTINENT LABORATORY DATA: Hemoglobin 14.7, white count 10.8, platelets 276. Creatinine 1.36. BNP 197. The remainder of her CBC and CMP are relatively benign. ASSESSMENT: 1. Chronic atrial fibrillation. 2. History of CVA. 3. Chronic low back pain with acute issues. 4. Hypertension. PLAN: We would not change her rate-controlling medications. She is cleared to proceed with any type of intervention warranted for her back pain. Her intractable back pain is often the source of her RVR. Treatment of the back pain is typically helpful in fixing her rate issues. Long discussion held with patient and family. Palliative Care would be of benefit to the patient, though she has some trepidation. I also think she would benefit from antianxiety medications, both in the hospital and long-term. She again expresses some reluctance, though family members agree. I have encouraged her to continue to have these conversations with her PCP and Pain Management Team. We will speak with Dr. Moctezuma to provide any reassurance as needed. I would proceed with outpatient treatments as needed, even with some baseline RVR as it is unlikely to be fully controlled. Aggressive rate controlling has led to hypotension and bradycardia in the past, so we would not increase these medications unless absolutely needed. We will follow along as long as she is in the hospital. Job ID: [id number]
[2020-11-14 11:12] LABS: #Basophils 0.1 thou/uL (0.0-0.2); #Eosinphils 0.2 thou/uL (0.0-0.7); #Monocytes 0.9 thou/uL (0.11-0.59); %Basophils 0.6 % (0.0-1.0); %Eosinophils 2.7 % (0.0-10.0); %Lymphocytes 32.3 % (21.0-51.0); %Monocytes 9.6 % (0.0-10.0); %Neutrophils 54.9 % (42.0-75.0); Hemoglobin 14.8 g/dL (12.0-16.0); Mean Corpuscular HGB CONC 31.8 g/dL (32.0-36.0); Mean Corpuscular Hemoglobin 29.7 pg (27.0-31.0); Mean Corpuscular Volume 93.5 fL (78.0-98.0); Mean Platelet Volume 7.1 fL (7.4-10.4); Platelet Count 255 thou/uL (130-400); RBC Distribution Width 12.4 % (11.5-14.5); Red Blood Cell (RBC) Count 4.98 mill/uL (4.20-5.40); White Blood Cell (WBC) Count 9.2 thou/uL (4.8-10.8)
[2020-11-14 12:54] VITALS: TEMP 97.2
--- NOTE | 2020-11-14 12:58 | PDOC.DS.DS ---
Provider Date of Admission: 11/13/20 15:55 Date of Discharge: 11/14/20 Admitting Provider: Aspen Nation MD Consultations: Cardiology Primary Care Physician: Wolfgang Fair MD Course Hospital Course: 85-year-old female who has chronic neck and back pain, patient is following pain specialist, last year in May patient was plan for intervention in her back but while doing procedure patient developed A. fib with RVR so procedure was postponed, since then patient has not seen pain management clinic, patient was controlling her pain with the tramadol and Flexeril, For last 1 and half week patient has worsening of pain, she was requiring several doses of tramadol and Flexeril without any pain relief, she has also on and off constipation, patient denies any fall, patient's pain was not controlled so family member decided to bring her to emergency room for evaluation. Initially in emergency room patient was found with A. fib with RVR, she was saturating normal, she was hemodynamically stable, she was given Cardizem 20 mg IV push and after that her rate was under control, patient is also on chronic anticoagulation with Eliquis, Today in the emergency room patient had routine blood test done which showed normal CBC, creatinine 1.36 which is baseline for patient, her BNP slightly elevated and her troponin is negative, thoracic spine CT scan showed no acute fracture or dislocation but patient was found with lytic lesions within T8 vertebral body which was consistent with hemangioma and similarly patient also had a similar lytic lesion at T10 vertebral body which was also consistent with hemangioma, patient had CT lumbar spine which showed L4-L5 foraminal stenosis, without any fracture or dislocation. In emergency room patient was given pain medicine and subsequently we decided to keep this patient in hospital for pain control. Family member reports that patient does not like to stay in hospital more than 1 midnight, patient gets more confused while in hospital, they prefer her to go home at least tomorrow. Patient's family member also requesting sitter bedside, patient has caregiver at her home. ED Course: Cardizem 20 mg IV push Ativan 2 mg and a fentanyl 100 mcg patient is given 500 mils IV fluid magnesium sulfate Resuscitation Status: 11/13/20 17:18 Resuscitation Status Routine Resuscitation Status: FULL: Full Resuscitation Lab Results: 11/14/20 11:02 11/14/20 04:34 Abnormal Lab Results - Last 48 hrs 11/13/20 14:27: B-Natriuretic Peptide 197.5 H 11/13/20 14:27: Chloride 108 H, Carbon Dioxide 17 L, Creatinine 1.36 H, Alkaline Phosphatase 137 H, Albumin/Globulin Ratio 1.1 L 11/13/20 14:27: MPV 7.3 L, Monocytes % 12.3 H, Monocytes # 1.3 H 11/14/20 04:34: Chloride 110 H, Carbon Dioxide 20 L, Creatinine 1.11 H, Alkaline Phosphatase 112 H, Serum Total Protein 5.6 L, Albumin 3.0 L 11/14/20 11:02: MCHC 31.8 L, MPV 7.1 L, Monocytes # 0.9 H Vitals: Vital Signs (12 hours) Temp Pulse Pulse Pulse Resp BP BP 11/14/20 09:05 74 99 145/67 H 133/63 11/14/20 07:59 97.4 F L 73 18 11/14/20 04:00 96.2 F L 74 18 BP Pulse Ox 11/14/20 09:05 11/14/20 07:59 133/61 96 11/14/20 04:00 124/58 L 94 L Weight Admit Weight 176 lb 14.4 oz Weight 176 lb 14.4 oz Physical Exam: The patient was seen and examined on the day of discharge. General Appearance: NAD, awake alert Eye: PERRL, anicteric sclera ENT: normocephalic atraumatic, no oropharyngeal lesions Neck: supple, symmetric, no JVD, no thyromegaly Respiratory: no wheezes, no rales, no ronchi Cardiovascular: no gallops, no rubs, irregular Gastrointestinal: soft, non-tender, non-distended, normal bowel sounds Extremities: no cyanosis, no clubbing, no edema Skin: normal turgor, no lesions Neurological: no focal deficits Musculoskeletal: normal tone, normal strength PSYCH: normal affect, normal behavior Problem (1) Intractable low back pain Code(s): M54.5 - LOW BACK PAIN Status: Acute (2) Atrial fibrillation with rapid ventricular response Code(s): I48.91 - UNSPECIFIED ATRIAL FIBRILLATION Status: Acute (3) Generalized weakness Code(s): R53.1 - WEAKNESS Status: Acute (4) Physical deconditioning Code(s): R53.81 - OTHER MALAISE Status: Acute (5) Diastolic congestive heart failure Code(s): I50.30 - UNSPECIFIED DIASTOLIC (CONGESTIVE) HEART FAILURE Status: Chronic Qualifiers: Heart failure chronicity: chronic Qualified Code(s): I50.32 - Chronic diastolic (congestive) heart failure (6) Essential (primary) hypertension Code(s): I10 - ESSENTIAL (PRIMARY) HYPERTENSION Status: Chronic (7) H/O TIA (transient ischemic attack) and stroke Code(s): Z86.73 - PRSNL HX OF TIA (TIA), AND CEREB INFRC W/O RESID DEFICITS Status: Chronic (8) H/O malignant neoplasm of breast Code(s): Z85.3 - PERSONAL HISTORY OF MALIGNANT NEOPLASM OF BREAST Status: Chronic Plan Home Medications: Medication Instructions Recorded Confirmed Type traMADol HCl [Tramadol HCl] 50 mg PO Q4HR PRN 09/23/16 11/13/20 History Omeprazole 40 mg PO DAILY 08/16/18 11/13/20 History Potassium Chloride [K-Dur] 20 meq PO QAM-WM tab 08/26/18 11/13/20 Rx Cyclobenzaprine [Flexeril] 5 mg PO TID PRN 11/09/19 11/13/20 History Docusate Sodium [Stool Softener] 100 mg PO BID 11/09/19 11/13/20 History Magnesium 250 mg PO Q2DAYS 11/09/19 11/13/20 History Apixaban [Eliquis] 2.5 mg PO BID #60 tab 11/13/19 11/13/20 Rx Diltiazem HCl [Cardizem CD] 180 mg PO Q12H #60 cap 02/01/20 11/13/20 Rx Polyethylene Glycol 3350 [Miralax] 17 gm PO DAILY #30 pk 02/01/20 11/13/20 Rx Acetaminophen [Tylenol Extra 500 mg PO BID 11/13/20 11/13/20 History Strength] Allergies: cefazolin [From Ancef] Allergy (Intermediate, Verified 04/21/20 18:17) Rash cephalexin Allergy (Verified 04/21/20 18:17) ibuprofen Allergy (Verified 04/21/20 18:14) NOT SURE OF REACTION nitrofurantoin [From Macrobid] Allergy (Verified 04/21/20 18:17) Activity:: Activity as Tolerated Nourishment:: Heart Healthy Diet Therapies:: Not Applicable Equipment/Supplies:: Not Applicable IV Therapy:: Not Applicable Referrals: Wolfgang Fair MD [Primary Care Provider] - 11/19/20 2:00 pm (SAM Madison, RN will be calling you approximately 72 hours after discharge to check on you. If you should need anything with regards to your healthcare prior to that time, please contact her directly at (Tuesday - Tuesday 8:00 a.m. to 5:00 p.m.)) Efrain Laboy MD [Active] - Leo Moctezuma MD [Active] - Disposition: HOME Quality CORE MEASURES:: N/A
--- NOTE | 2020-11-14 13:44 | CON ---
DATE OF CONSULTATION: 11/14/2020 REASON FOR CONSULTATION: Severe Back pain. HISTORY OF PRESENT ILLNESS: The patient is an 85-year-old female, known to our pain management clinic with history of lumbar foraminal stenosis, thoracic and cervical spondylosis, who has undergone interventional treatment in the past with Dr. Moctezuma. She was admitted through the ER yesterday for severe back pain as well as uncontrolled atrial fibrillation, which she currently takes Eliquis for. The RVR could have been prompted by the back pain, she has been seen by Cardiology. In speaking with the patient and her [id number]-[id number]-trg today, who is present with her, regarding her history of present illnesses, the exiwtftw-ey-ymh helps assist with the assessment. Apparently about a week and a half ago, she started to report some mebcjehc-vt-otsufe low back pain, which was intermittent. She was taking tramadol and Flexeril at home from her primary care provider, which was not controlling her pain. She was seen by her primary care physician earlier in the week and given an injection of Toradol, which seemed to improve her pain for a period of 2 to 3 days; however, her pain shortly returned following that. Her pain is described today as intermittent, moderate to severe, that radiates across the low back. It comes and goes throughout the day and is not typically exacerbated with any type of function or movement. Currently, her pain is 1/10, she appears comfortable. She denies any lower extremity radiating pain associated with the back pain, no lower extremity weakness, reported . Her family denies any recent falls, no trauma. She does live at home and requires 24-hour caregiver assist. Again, she was taking tramadol 50 mg tablets anywhere from 1 to 2 a day and Flexeril at home 1 to 2 a day with about 20% relief; however, the pain escalated. Prior to ER visit, she took 3 tramadol at one time and had no relief of her pain. Her family said she was disoriented, screaming out loud secondary to her pain. Upon admission to the ER room, CTs done of the lumbar and thoracic spine. Her lumbar CT indicate some right L4 foraminal stenosis as well as some central canal stenosis at L2-L3, L3-L4, and L4-L5 at varying degrees. There were no signs of vertebral compression fracture or other acute changes. CT of the thoracic spine indicated no acute fractures or dislocations. There were some hemangiomas reported at T8 intervertebral body; however, no other acute findings. During the hospital course, the patient has been given some hydrocodone 7.5 mg as well as some morphine 2 mg IV push and has responded well in regard to her pain relief. Her Eliquis was initially held due to possible interventional treatment; however, it appears Cardiology has restarted her Eliquis and we have been consulted for any interventional treatment and medication management, so the patient may be discharged home as soon as possible per family request. PAST MEDICAL HISTORY: Includes: 1. Hypertension. 2. Chronic kidney disease. 3. History of breast cancer. 4. History of CVA. 5. Chronic atrial fibrillation. 6. Cervical spondylosis. 7. Thoracic spondylosis. 8. Lumbar central canal and foraminal stenosis. PAST SURGICAL HISTORY: Positive for: 1. Tonsillectomy. 2. Mastectomy. 3. Hysterectomy. 4. Bladder suspension. 5. Cataracts. 6. Varicose veins. FAMILY HISTORY: Negative for any pertinent findings. SOCIAL HISTORY: The patient does live at home alone; however, she requires 24- hour caregiver assist with all activities of function and ADLs. She does have supportive family. There is no history of tobacco or alcohol or illicit drug use. Per the [id number], the patient is not ambulatory at home, again requires assist with all functional activities. MEDICATIONS: Reviewed per the MAR. Currently for pain, she has taken some Tylenol, hydrocodone 7.5 mg, as well as morphine 2 mg IV push as needed. ALLERGIES: REVIEWED. NSAIDS, CEPHALEXIN, IBUPROFEN, AND MACROBID. REVIEW OF SYSTEMS: See the HPI, no other pertinent findings. PHYSICAL EXAMINATION: VITAL SIGNS: Blood pressure is 145/67, heart rate 74, O2 saturations 96% on room air, temperature is 97.4, and pain is 1/10. GENERAL: She is alert and pleasant, cooperative to verbal commands, she does have difficulty with speech due to her expressive aphasia; however, she seems receptive to commands and follows all commands. She is in no distress. HEENT: Sclerae are not icteric. NECK: Supple and soft. No JVD. RESPIRATORY: No use of accessory muscles, no respiratory distress, on room air. SPINE: Cervical spine range of motion full, intact. No cervical pain with palpation. Thoracic spine has no discomfort with range of motion, no localized pain elicited with palpation of the thoracic vertebral bodies, no paraspinal muscle tenderness. Lumbar spine has some paraspinal tenderness bilaterally in the upper lumbar region, no SI joint pain with palpation. EXTREMITIES: Negative straight leg raise in bilateral lower extremities. Reflexes are diminished throughout. Bilateral lower extremity strength against resistance is 4/5, no deficits nor motor deficits on exam in lower extremities. There is some trace peripheral edema with a dressing on her right elbow noted. NEUROLOGIC: She seems alert and oriented x3. Again, she has some expressive aphasia; however, receptively she seems to be intact and follows commands. DIAGNOSTIC STUDIES: Including CT of the lumbar and thoracic spine reviewed, discussed with Dr. Moctezuma, noted in HPI for the findings. LABORATORY DATA: Reviewed. ASSESSMENT: 1. Intractable back pain. 2. Lumbar stenosis. 3. Cervical and thoracic spondylosis. 4. Chronic atrial fibrillation, currently on anticoagulant therapy. PLAN: The patient is planning to discharge home today per medicine team. Discussed with her family. We will discontinue her current treatment of tramadol at home and start her on hydrocodone 5mg/325 mg tablets to be used one p.o. q.4-6 h. as needed for pain. She can continue her cyclobenzaprine as previously prescribed by her primary care for muscle spasms; however, I did warn the family the use of Flexeril in elderly patients may cause increased risk of falls, family understands. I have also instructed them to use a stool softener and mild laxative to avoid opioid-induced constipation, the patient takes MiraLAX at home. We will plan to continue her Eliquis at this time as this was directed by Cardiology. We will call the patient on Tuesday from our outpatient pain clinic. The patient will follow up in outpatient clinic for lumbar epidural steroid injection with Dr. Moctezuma. Job ID: [id number] [facility]
[2020-11-14 16:41] VITALS: BP 146/72
== END 2020-11-14 16:00 | disposition home or self-care (01) ==
LOC: ERS 13:57 → 3SE 15:55 → 2NO 19:07
PROVIDERS: ADMIT Internal Medicine; ATTEND Internal Medicine
DX: G89.29 Other chronic pain (principal); M54.5 Low back pain; M54.2 Cervicalgia; I48.20 Chronic atrial fibrillation, unspecified; K59.00 Constipation, unspecified; M48.061 Spinal stenosis, lumbar region without neurogenic claudication; I13.0 Hypertensive heart and chronic kidney disease with heart failure and stage 1 through stage 4 chronic kidney disease, or unspecified chronic kidney disease; N18.30 Chronic kidney disease, stage 3 unspecified; I50.32 Chronic diastolic (congestive) heart failure; R53.81 Other malaise; I70.0 Atherosclerosis of aorta; M47.812 Spondylosis without myelopathy or radiculopathy, cervical region; M47.814 Spondylosis without myelopathy or radiculopathy, thoracic region; I69.320 Aphasia following cerebral infarction; I69.351 Hemiplegia and hemiparesis following cerebral infarction affecting right dominant side; Z85.3 Personal history of malignant neoplasm of breast; Z79.01 Long term (current) use of anticoagulants; Z79.899 Other long term (current) drug therapy; Z88.1 Allergy status to other antibiotic agents; Z88.6 Allergy status to analgesic agent; Z20.822 Contact with and (suspected) exposure to COVID-19
CPT/HCPCS: 72128; 72131; 80053 ×2; 82550; 83690; 83880; 84484; 85025 ×2; 93005; 96365; 96375; 97139 ×2; 97530; 99285; J2270; U0003; U0005; 36415; 87635; 96376; G0378; J2060; J3010; J3475

== ENCOUNTER 2020-11-21 14:52 | Inpatient (IN) | payer MEDICARE ==
[2020-11-21] MEDS ORDERED: Diltiazem 125 MG/25 ML ONE (15:25)
[2020-11-21] MEDS ORDERED: Morphine 4 MG/ML VIAL ONE ×2 (15:25→20:12)
[2020-11-21] MEDS ORDERED: Ondansetron PF 4 MG/2 ML Vial ONE (15:25)
[2020-11-21] MEDS ORDERED: Lorazepam 2 MG/ML VIAL ONE (15:34)
[2020-11-21 15:49] LABS: #Basophils 0.1 thou/uL (0.0-0.2); #Lymphocytes 2.7 thou/uL (1.20-3.40); #Monocytes 1.9 thou/uL (0.11-0.59); #Neutrophils 11.4 thou/uL (1.40-6.50); %Basophils 0.5 % (0.0-1.0); %Eosinophils 0.2 % (0.0-10.0); %Lymphocytes 16.7 % (21.0-51.0); %Neutrophils 70.7 % (42.0-75.0); Hemoglobin 15.3 g/dL (12.0-16.0); Mean Corpuscular HGB CONC 31.1 g/dL (32.0-36.0); Mean Corpuscular Hemoglobin 28.7 pg (27.0-31.0); Mean Corpuscular Volume 92.2 fL (78.0-98.0); Mean Platelet Volume 7.3 fL (7.4-10.4); Platelet Count 385 thou/uL (130-400); RBC Distribution Width 12.3 % (11.5-14.5); Red Blood Cell (RBC) Count 5.31 mill/uL (4.20-5.40); White Blood Cell (WBC) Count 16.1 thou/uL (4.8-10.8)
[2020-11-21 16:14] LABS: ALT (SGPT) 18 U/L (8-55); AST (SGOT) 11 U/L (5-34); Albumin 3.8 g/dL (3.4-4.8); Alkaline Phosphatase 122 U/L (40-110); Anion Gap 16 mmol/L (10-20); BUN (Urea Nitrogen) 36 mg/dL (9.8-20.1); Bilirubin, Total 0.7 mg/dL (0.2-1.2); Calc. Creatinine Clearance 0 mL/min (70-130); Carbon Dioxide 19 mmol/L (23-31); Chloride 108 mmol/L (98-107); Glucose 165 mg/dL (83-110); Potassium 4.4 mmol/L (3.5-5.1); Protein, Total 6.8 g/dL (5.8-8.1); Sodium 139 mmol/L (136-145)
[2020-11-21 16:22] LABS: Bilirubin Negative (Negative); Blood, Urine Negative (Negative); Clarity Turbid (Clear); Glucose, Urine (Dipstick) Normal (Negative); Ketone, Urine Negative (Negative); Leukocyte 500 Leu/uL (Negative); Nitrite Negative (Negative); Protein, Urine (Dipstick) 20 mg/dL (Neg-Trace); RBC/HPF 0-3 HPF (0-3); Specific Gravity, Urine 1.018 (1.002-1.036); Squamous Epithelial None Seen HPF (0-3); Urobilinogen Normal mg/dL (Less than 2); WBC/HPF Greater than 50 HPF (0-3)
[2020-11-21 16:37] LABS: Bacteria/HPF 1+ HPF (None Seen)
[2020-11-21] MEDS ORDERED: VANCOMYCIN 2 GRAM/400 ML BAG 2 GM in Premix Bag 1 BAG IVPB SCH (17:45)
[2020-11-21] MEDS ORDERED: Metoprolol Tartrate 5 MG/5 ML VIAL ONE (17:59)
[2020-11-21] MEDS ORDERED: Levofloxacin 500 mg/D5W 100 ml Premix Bag ONE (17:59)
[2020-11-21 18:44] LABS: Lactic Acid 1.7 mmol/L (0.5-2.2)
[2020-11-21] MEDS ORDERED: Ondansetron ODT 4 MG TAB SL PRN (21:00)
[2020-11-21] MEDS ORDERED: Acetaminophen 325 MG TAB PO PRN (21:00)
[2020-11-21] MEDS ORDERED: Ondansetron PF 4 MG/2 ML Vial IVP PRN (21:00)
[2020-11-21] MEDS ORDERED: Morphine 2 MG/ML VIAL SLOW IVP PRN (21:23)
[2020-11-21] MEDS ORDERED: HYDROcodone/Acetaminophen 5/325 mg Tablet PO PRN (21:25)
[2020-11-21] MEDS ORDERED: Acetaminophen 650 MG Suppository PR PRN (21:56)
[2020-11-22] VITALS: BMI 26.9
[2020-11-22] MEDS: Morphine 2 MG/ML VIAL SLOW IVP PRN ×6 (00:36→23:17)
[2020-11-22] MEDS: Sodium Chloride 0.9% 1,000 ML IV SCH ×2 (00:39→09:02)
[2020-11-22] MEDS ORDERED: VANCOMYCIN 1.25 GM/250 ML BAG 1.25 GM in Premix Bag 1 BAG IVPB SCH (06:00)
[2020-11-22] MEDS ORDERED: Diltiazem HCl 125 MG, Admixture Fee 1 EACH in Sodium Chloride 0.9% 100 ML IVPB SCH (06:45)
[2020-11-22] MEDS: Lidocaine 5% Patch TD SCH (09:00)
[2020-11-22] MEDS: Magnesium Oxide 250 MG TAB PO SCH (12:44)
[2020-11-22 13:05] LABS: Anion Gap 15 mmol/L (10-20); BUN (Urea Nitrogen) 26 mg/dL (9.8-20.1); Calc. Creatinine Clearance 53 mL/min (70-130); Calcium 9.3 mg/dL (7.8-10.44); Carbon Dioxide 13 mmol/L (23-31); Chloride 119 mmol/L (98-107); Glucose 94 mg/dL (83-110); Potassium 4.8 mmol/L (3.5-5.1); Sodium 142 mmol/L (136-145)
[2020-11-22] MEDS ORDERED: Metoprolol Tartrate 5 MG/5 ML VIAL IVP SCH (16:15)
[2020-11-22 16:41] LABS: #Eosinphils 0.1 thou/uL (0.0-0.7); #Lymphocytes 2.6 thou/uL (1.20-3.40); #Monocytes 2.1 thou/uL (0.11-0.59); #Neutrophils 12.6 thou/uL (1.40-6.50); %Basophils 0.1 % (0.0-1.0); %Eosinophils 0.8 % (0.0-10.0); %Lymphocytes 14.9 % (21.0-51.0); %Monocytes 11.9 % (0.0-10.0); %Neutrophils 72.4 % (42.0-75.0); Hemoglobin 14.4 g/dL (12.0-16.0); Mean Corpuscular HGB CONC 32.3 g/dL (32.0-36.0); Mean Corpuscular Hemoglobin 30.1 pg (27.0-31.0); Mean Corpuscular Volume 93.2 fL (78.0-98.0); Mean Platelet Volume 7.4 fL (7.4-10.4); Platelet Count 283 thou/uL (130-400); RBC Distribution Width 12.4 % (11.5-14.5); Red Blood Cell (RBC) Count 4.79 mill/uL (4.20-5.40); White Blood Cell (WBC) Count 17.4 thou/uL (4.8-10.8)
[2020-11-22] MEDS: Docusate 100 MG CAP PO SCH (21:07)
[2020-11-22] MEDS: Apixaban 2.5 MG TAB PO SCH (21:07)
[2020-11-22] MEDS: Zolpidem Tartrate 5 MG TAB PO SCH ×2 (21:07→21:24)
[2020-11-22] MEDS: Metoprolol Tartrate 25 MG TAB PO SCH (21:07)
[2020-11-22] MEDS: Lidocaine Patch Removal TOP SCH (21:08)
[2020-11-23] MEDS: Morphine 2 MG/ML VIAL SLOW IVP PRN ×3 (04:17→20:46)
[2020-11-23 06:07] LABS: #Basophils 0.1 thou/uL (0.0-0.2); #Eosinphils 0.3 thou/uL (0.0-0.7); #Monocytes 1.7 thou/uL (0.11-0.59); #Neutrophils 11.2 thou/uL (1.40-6.50); %Basophils 0.4 % (0.0-1.0); %Eosinophils 1.7 % (0.0-10.0); %Lymphocytes 13.3 % (21.0-51.0); %Monocytes 11.2 % (0.0-10.0); %Neutrophils 73.3 % (42.0-75.0); Hemoglobin 13.6 g/dL (12.0-16.0); Mean Corpuscular HGB CONC 32.1 g/dL (32.0-36.0); Mean Corpuscular Hemoglobin 30.2 pg (27.0-31.0); Mean Corpuscular Volume 94.1 fL (78.0-98.0); Mean Platelet Volume 7.3 fL (7.4-10.4); Platelet Count 238 thou/uL (130-400); RBC Distribution Width 12.3 % (11.5-14.5); White Blood Cell (WBC) Count 15.2 thou/uL (4.8-10.8)
[2020-11-23 06:25] LABS: Anion Gap 11 mmol/L (10-20); BUN (Urea Nitrogen) 28 mg/dL (9.8-20.1); Calc. Creatinine Clearance 52 mL/min (70-130); Calcium 8.7 mg/dL (7.8-10.44); Carbon Dioxide 18 mmol/L (23-31); Chloride 115 mmol/L (98-107); Glucose 84 mg/dL (83-110); Potassium 4.1 mmol/L (3.5-5.1); Sodium 140 mmol/L (136-145)
[2020-11-23] MEDS ORDERED: Morphine 2 MG/ML VIAL SLOW IVP PRN (08:23)
[2020-11-23] MEDS ORDERED: HYDROcodone/Acetaminophen 10/325 mg Tablet PO PRN (08:23)
[2020-11-23] MEDS: Lidocaine 5% Patch TD SCH (08:29)
[2020-11-23] MEDS: Apixaban 2.5 MG TAB PO SCH ×2 (08:30→20:46)
[2020-11-23] MEDS: Docusate 100 MG CAP PO SCH ×2 (08:30→20:46)
[2020-11-23] MEDS: Potassium Chloride 20 MEQ TAB PO SCH (08:30)
[2020-11-23] MEDS: Lorazepam 0.5 MG TAB PO SCH (08:31)
[2020-11-23] MEDS: Metoprolol Tartrate 25 MG TAB PO SCH (08:32)
[2020-11-23] MEDS: Polyethylene Glycol 3350 17 GM Packet PO SCH (08:33)
[2020-11-23] MEDS ORDERED: HYDROcodone/Acetaminophen 5/325 mg Tablet PO PRN (10:10)
[2020-11-23] MEDS ORDERED: Melatonin 3 MG TAB PO PRN (12:26)
[2020-11-23] MEDS ORDERED: Morphine IR Tab 15 MG TAB PO PRN (16:09)
[2020-11-23] MEDS: Lidocaine Patch Removal TOP SCH (21:02)
[2020-11-24] MEDS ORDERED: Polyethylene Glycol 3350 17 GM Packet PO PRN (01:39)
[2020-11-24] MEDS: Apixaban 2.5 MG TAB PO SCH (08:44)
[2020-11-24] MEDS: Potassium Chloride 20 MEQ TAB PO SCH (08:44)
[2020-11-24] MEDS: Lorazepam 0.5 MG TAB PO SCH (08:45)
[2020-11-24] MEDS: Docusate 100 MG CAP PO SCH (08:45)
[2020-11-24] MEDS: Lidocaine 5% Patch TD SCH (08:45)
[2020-11-24] MEDS: Polyethylene Glycol 3350 17 GM Packet PO SCH (08:46)
[2020-11-24] MEDS: Magnesium Oxide 250 MG TAB PO SCH (09:04)
[2020-11-24 10:41] LABS: #Basophils 0.1 thou/uL (0.0-0.2); #Eosinphils 0.2 thou/uL (0.0-0.7); #Lymphocytes 2.1 thou/uL (1.20-3.40); #Monocytes 1.6 thou/uL (0.11-0.59); #Neutrophils 9.2 thou/uL (1.40-6.50); %Eosinophils 1.2 % (0.0-10.0); %Lymphocytes 15.9 % (21.0-51.0); %Monocytes 12.1 % (0.0-10.0); %Neutrophils 69.8 % (42.0-75.0); Hemoglobin 14.4 g/dL (12.0-16.0); Mean Corpuscular HGB CONC 32.5 g/dL (32.0-36.0); Mean Corpuscular Hemoglobin 30.5 pg (27.0-31.0); Mean Corpuscular Volume 93.7 fL (78.0-98.0); Mean Platelet Volume 7.7 fL (7.4-10.4); Platelet Count 233 thou/uL (130-400); RBC Distribution Width 12.3 % (11.5-14.5); Red Blood Cell (RBC) Count 4.73 mill/uL (4.20-5.40); White Blood Cell (WBC) Count 13.2 thou/uL (4.8-10.8)
[2020-11-24] MEDS ORDERED: Lorazepam 2 MG/ML VIAL SLOW IVP ONE (11:27)
[2020-11-24] MEDS ORDERED: Morphine 2 MG/ML VIAL SLOW IVP PRN (15:42)
[2020-11-24 16:33] VITALS: TEMP 97.5
[2020-11-24 23:37] VITALS: BP 141/69
== END 2020-11-24 19:36 | disposition home or self-care (01) | DRG 871 ==
LOC: ERS 14:52 → 2NO 19:16
PROVIDERS: ADMIT Internal Medicine; ATTEND Internal Medicine
DX: A41.9 Sepsis, unspecified organism (principal); J18.9 Pneumonia, unspecified organism; N39.0 Urinary tract infection, site not specified; I48.21 Permanent atrial fibrillation; Z66 Do not resuscitate; Z20.822 Contact with and (suspected) exposure to COVID-19; M54.5 Low back pain; G89.29 Other chronic pain; I10 Essential (primary) hypertension; G62.9 Polyneuropathy, unspecified; Z88.1 Allergy status to other antibiotic agents; Z88.6 Allergy status to analgesic agent; Z85.3 Personal history of malignant neoplasm of breast; Z86.73 Personal history of transient ischemic attack (TIA), and cerebral infarction without residual deficits; Z79.01 Long term (current) use of anticoagulants; Z79.899 Other long term (current) drug therapy
CPT/HCPCS: 36415; 36416; 51701; 71045; 72148; 80048; 80053; 81003; 81015; 83605; 83880; 84484; 85025; 87040; 87077; 87086; 93005; 96365; 96366; 96368; 96375; 96376; J1956; J2060; J2270; J2405; J2920; J3370; J3490; Q9967; S0020

== ENCOUNTER 2020-11-27 14:58 | Inpatient (IN) | payer MEDICARE ==
[~2020-11-27 14:58] MED LIST changes: -Gadobenate Dimeglumine 529 MG/1 ML (20ML VIAL) ONE; +Iopamidol-370 76% 500 ML 1 ML ONE
[2020-11-27] MEDS ORDERED: Diltiazem 125 MG/25 ML ONE (15:16)
[2020-11-27 15:29] LABS: Hemoglobin 13.9 g/dL (12.0-16.0); Mean Corpuscular HGB CONC 32.3 g/dL (32.0-36.0); Mean Corpuscular Hemoglobin 30.3 pg (27.0-31.0); Mean Corpuscular Volume 94.1 fL (78.0-98.0); Mean Platelet Volume 7.8 fL (7.4-10.4); Platelet Count 254 thou/uL (130-400); RBC Distribution Width 12.6 % (11.5-14.5); Red Blood Cell (RBC) Count 4.58 mill/uL (4.20-5.40); White Blood Cell (WBC) Count 24.6 thou/uL (4.8-10.8)
[2020-11-27] MEDS ORDERED: Ondansetron PF 4 MG/2 ML Vial ONE ×4 (15:31→21:40)
[2020-11-27 15:36] LABS: INR-International Normal Ratio 1.5; PTT 34.7 sec (22.9-36.1); Prothrombin Time 18.2 sec (12.0-14.7)
[2020-11-27 15:47] LABS: Band 24 % (5-11); Lymphocytes 5 % (21-51); MDiff Complete? YES; Monocytes 8 % (0-10); Neutrophil 61 % (42-75); Platelet Morphology Comment Appears Adequate; Polychromasia SLIGHT = 2-3 cells (100X) (0-2/hpf); Reactive Lymphocytes 2 % (0-10)
[2020-11-27 15:48] LABS: ALT (SGPT) 18 U/L (8-55); AST (SGOT) 12 U/L (5-34); Albumin 3.3 g/dL (3.4-4.8); Alkaline Phosphatase 100 U/L (40-110); Anion Gap 13 mmol/L (10-20); BUN (Urea Nitrogen) 34 mg/dL (9.8-20.1); Bilirubin, Total 0.7 mg/dL (0.2-1.2); CK (CPK) 46 U/L (29-168); Calc. Creatinine Clearance 0 mL/min (70-130); Calcium 9.9 mg/dL (7.8-10.44); Carbon Dioxide 24 mmol/L (23-31); Chloride 110 mmol/L (98-107); Globulin 2.7 g/dL (2.4-3.5); Glucose 132 mg/dL (83-110); Sodium 142 mmol/L (136-145)
[2020-11-27] MEDS ORDERED: Morphine 4 MG/ML VIAL ONE (17:30)
[2020-11-27 18:08] LABS: Bilirubin Negative (Negative); Blood, Urine 2+ (Negative); Clarity Clear (Clear); Glucose, Urine (Dipstick) Normal (Negative); Ketone, Urine Negative (Negative); Leukocyte 250 Leu/uL (Negative); Nitrite Negative (Negative); Protein, Urine (Dipstick) 20 mg/dL (Neg-Trace); RBC/HPF 21-50 HPF (0-3); Squamous Epithelial 0-3 HPF (0-3); Urobilinogen Normal mg/dL (Less than 2); WBC/HPF 21-50 HPF (0-3)
[2020-11-27 18:11] LABS: Bacteria/HPF 2+ HPF (None Seen); Specific Gravity, Urine 1.051 (1.002-1.036)
[2020-11-27] MEDS ORDERED: Vancomycin 1 GM/200 ML BAG ONE (18:54)
[2020-11-27] MEDS ORDERED: Piperacillin/Tazobactam 3.375 GM VIAL ONE (18:54)
[2020-11-27] MEDS ORDERED: Sodium Chloride 0.9% 1,000 ML IV SCH (19:00)
[2020-11-27 19:50] LABS: SARS-CoV-2 NAA Rapid Test Not Detected (NotDetected)
[2020-11-27] MEDS ORDERED: Morphine 4 MG/ML VIAL SLOW IVP PRN (22:04)
[2020-11-27] MEDS ORDERED: Pantoprazole 40 MG VIAL IVP SCH (22:15)
[2020-11-27 22:36] VITALS: BMI 29.5
[2020-11-27] MEDS ORDERED: Promethazine HCl 25 MG/ML VIAL SLOW IVP PRN (22:42)
[2020-11-27] MEDS ORDERED: Guaifenesin DM 100-10/5 ML UDCUP PO PRN (22:58)
[2020-11-27] MEDS ORDERED: Acetaminophen 650 MG Suppository PR PRN (22:58)
[2020-11-27] MEDS ORDERED: Ondansetron ODT 4 MG TAB PO PRN (22:58)
[2020-11-27] MEDS ORDERED: Ondansetron PF 4 MG/2 ML Vial IVP PRN (22:58)
[2020-11-27] MEDS ORDERED: Acetaminophen 325 MG TAB PO PRN (22:58)
[2020-11-27] MEDS ORDERED: Loperamide HCl 2 MG CAP PO PRN (22:58)
[2020-11-27] MEDS ORDERED: Senokot S 8.6-50 MG TAB PO SCH (23:30)
[2020-11-28] MEDS ORDERED: Piperacillin/Tazobactam 2.25 GM in Sodium Chloride 0.9% 100 ML IVPB SCH (02:00)
[2020-11-28] MEDS: Morphine 4 MG/ML VIAL SLOW IVP PRN ×2 (02:51→22:42)
[2020-11-28] MEDS: Piperacillin/Tazobactam 2.25 GM in Sodium Chloride 0.9% 100 ML IVPB SCH ×3 (03:01→16:44)
[2020-11-28] MEDS ORDERED: Furosemide 20 MG/2 ML VIAL SLOW IVP SCH (03:45)
[2020-11-28] MEDS: Diltiazem 125 MG in Sodium Chloride 0.9% 100 ML IVPB SCH ×2 (03:59→16:44)
[2020-11-28 04:24] LABS: Anion Gap 16 mmol/L (10-20); BUN (Urea Nitrogen) 37 mg/dL (9.8-20.1); Calc. Creatinine Clearance 23 mL/min (70-130); Calcium 9.3 mg/dL (7.8-10.44); Carbon Dioxide 16 mmol/L (23-31); Chloride 114 mmol/L (98-107); Glucose 159 mg/dL (83-110); Potassium 5.6 mmol/L (3.5-5.1); Sodium 140 mmol/L (136-145)
[2020-11-28 04:42] LABS: Band 27 % (5-11); Hemoglobin 12.6 g/dL (12.0-16.0); Lymphocytes 5 % (21-51); MDiff Complete? YES; Mean Corpuscular HGB CONC 32.2 g/dL (32.0-36.0); Mean Corpuscular Hemoglobin 30.4 pg (27.0-31.0); Mean Corpuscular Volume 94.4 fL (78.0-98.0); Mean Platelet Volume 7.8 fL (7.4-10.4); Monocytes 1 % (0-10); Neutrophil 67 % (42-75); Platelet Count 221 thou/uL (130-400); RBC Distribution Width 12.7 % (11.5-14.5); Red Blood Cell (RBC) Count 4.15 mill/uL (4.20-5.40)
[2020-11-28] MEDS ORDERED: Ondansetron PF 4 MG/2 ML Vial IVP PRN (06:00)
[2020-11-28] MEDS ORDERED: Morphine 2 MG/ML VIAL SLOW IVP SCH (06:00)
[2020-11-28] MEDS ORDERED: Dextrose 5% in Water 1,000 ML IV SCH (07:30)
[2020-11-28] MEDS ORDERED: Pantoprazole 40 MG VIAL IVP SCH (09:00)
[2020-11-28] MEDS: Pantoprazole 40 MG VIAL IVP SCH ×2 (10:36→20:33)
[2020-11-28] MEDS: Senokot S 8.6-50 MG TAB PO SCH ×2 (10:36→20:23)
[2020-11-28] MEDS: Sodium Bicarbonate 150 MEQ in Dextrose 5% in Water 1,000 ML IV SCH (10:37)
[2020-11-28] MEDS ORDERED: Vancomycin HCl 1 GM in Admixture Fee 1 EACH IVPB SCH (18:00)
[2020-11-28 19:02] LABS: Vancomycin, Random 9.8 ug/mL (See Comment)
[2020-11-28] MEDS ORDERED: VANCOMYCIN 1.25 GM/250 ML BAG 1.25 GM in Premix Bag 1 BAG IVPB SCH (19:30)
[2020-11-29 00:07] LABS: Anion Gap 17 mmol/L (10-20); BUN (Urea Nitrogen) 37 mg/dL (9.8-20.1); Calc. Creatinine Clearance 29 mL/min (70-130); Calcium 9.6 mg/dL (7.8-10.44); Carbon Dioxide 21 mmol/L (23-31); Chloride 112 mmol/L (98-107); Glucose 122 mg/dL (83-110); Sodium 146 mmol/L (136-145)
[2020-11-29] MEDS: Sodium Bicarbonate 150 MEQ in Dextrose 5% in Water 1,000 ML IV SCH ×2 (01:47→11:47)
[2020-11-29] MEDS: Diltiazem 125 MG in Sodium Chloride 0.9% 100 ML IVPB SCH ×2 (02:42→12:11)
[2020-11-29] MEDS: Piperacillin/Tazobactam 2.25 GM in Sodium Chloride 0.9% 100 ML IVPB SCH ×3 (02:56→17:15)
[2020-11-29] MEDS: Morphine 4 MG/ML VIAL SLOW IVP PRN (03:48)
[2020-11-29 04:01] LABS: #Lymphocytes 1.3 thou/uL (1.20-3.40); #Monocytes 1.4 thou/uL (0.11-0.59); #Neutrophils 15.4 thou/uL (1.40-6.50); %Basophils 0.1 % (0.0-1.0); %Lymphocytes 7.1 % (21.0-51.0); %Monocytes 7.6 % (0.0-10.0); %Neutrophils 85.2 % (42.0-75.0); Hemoglobin 11.2 g/dL (12.0-16.0); Mean Corpuscular HGB CONC 32.5 g/dL (32.0-36.0); Mean Corpuscular Hemoglobin 30.5 pg (27.0-31.0); Mean Corpuscular Volume 93.9 fL (78.0-98.0); Mean Platelet Volume 7.7 fL (7.4-10.4); Platelet Count 199 thou/uL (130-400); RBC Distribution Width 12.5 % (11.5-14.5); Red Blood Cell (RBC) Count 3.66 mill/uL (4.20-5.40)
[2020-11-29 04:19] LABS: Anion Gap 14 mmol/L (10-20); BUN (Urea Nitrogen) 32 mg/dL (9.8-20.1); Calc. Creatinine Clearance 33 mL/min (70-130); Calcium 9.4 mg/dL (7.8-10.44); Carbon Dioxide 23 mmol/L (23-31); Chloride 110 mmol/L (98-107); Glucose 143 mg/dL (83-110); Potassium 3.6 mmol/L (3.5-5.1); Sodium 143 mmol/L (136-145)
[2020-11-29] MEDS: Docusate 100 MG CAP PO SCH ×2 (09:30→20:34)
[2020-11-29] MEDS: Polyethylene Glycol 3350 17 GM Packet PO SCH (09:30)
[2020-11-29] MEDS: Senokot S 8.6-50 MG TAB PO SCH ×2 (09:30→20:34)
[2020-11-29] MEDS: Metoprolol Tartrate 5 MG/5 ML VIAL IVP PRN ×3 (10:14→22:20)
[2020-11-29] MEDS: Pantoprazole 40 MG VIAL IVP SCH ×2 (10:14→20:34)
[2020-11-29] MEDS ORDERED: Bisacodyl 10 MG SUPP PR SCH (12:00)
[2020-11-29] MEDS ORDERED: Sodium Bicarbonate 150 MEQ in Dextrose 5% in Water 1,000 ML IV SCH (12:00)
[2020-11-29] MEDS ORDERED: Potassium Bicarbonate/Cit Ac 20 MEQ TAB PER TUBE SCH (12:30)
[2020-11-29] MEDS: Ziprasidone 20 MG CAP PO SCH (20:34)
[2020-11-29 22:24] LABS: Vancomycin, Random 12.2 ug/mL (See Comment)
[2020-11-29] MEDS ORDERED: VANCOMYCIN 1.25 GM/250 ML BAG 1.25 GM in Premix Bag 1 BAG IVPB SCH (22:45)
[2020-11-30] MEDS: Piperacillin/Tazobactam 2.25 GM in Sodium Chloride 0.9% 100 ML IVPB SCH (03:00)
[2020-11-30] MEDS: Diltiazem 125 MG in Sodium Chloride 0.9% 100 ML IVPB SCH ×4 (03:14→15:08)
[2020-11-30 04:18] LABS: Anion Gap 15 mmol/L (10-20); BUN (Urea Nitrogen) 26 mg/dL (9.8-20.1); Calc. Creatinine Clearance 46 mL/min (70-130); Calcium 9.7 mg/dL (7.8-10.44); Carbon Dioxide 24 mmol/L (23-31); Chloride 111 mmol/L (98-107); Glucose 144 mg/dL (83-110); Potassium 3.2 mmol/L (3.5-5.1); Sodium 147 mmol/L (136-145)
[2020-11-30 05:32] LABS: Band 10 % (5-11); Hemoglobin 12.2 g/dL (12.0-16.0); Lymphocytes 6 % (21-51); MDiff Complete? YES; Mean Corpuscular HGB CONC 31.9 g/dL (32.0-36.0); Mean Corpuscular Hemoglobin 29.7 pg (27.0-31.0); Mean Corpuscular Volume 93.1 fL (78.0-98.0); Mean Platelet Volume 7.9 fL (7.4-10.4); Monocytes 5 % (0-10); Neutrophil 79 % (42-75); Platelet Count 212 thou/uL (130-400); RBC Distribution Width 12.6 % (11.5-14.5); White Blood Cell (WBC) Count 21.4 thou/uL (4.8-10.8)
[2020-11-30 05:53] LABS: Phosphorus 1.7 mg/dL (2.3-4.7)
[2020-11-30] MEDS: Metoprolol Tartrate 5 MG/5 ML VIAL IVP PRN ×2 (06:02→15:07)
[2020-11-30] MEDS: Potassium Bicarbonate/Cit Ac 20 MEQ TAB PER TUBE SCH ×2 (06:04→09:57)
[2020-11-30] MEDS ORDERED: Potassium Chloride 20 MEQ in Premix Bag 1 BAG IVPB SCH (06:45)
[2020-11-30] MEDS ORDERED: Electrolyte Replacement Protocol FS PRN (06:45)
[2020-11-30] MEDS ORDERED: Magnesium 2 GM/50 ML 2 GM in Premix Bag 1 BAG IVPB SCH (07:00)
[2020-11-30] MEDS ORDERED: Potassium Phosphate 15 MMOL in Sodium Chloride 0.9% 100 ML IVPB SCH (07:00)
[2020-11-30] MEDS: Dextrose 5% in Water 1,000 ML IV SCH ×2 (09:55→17:29)
[2020-11-30] MEDS: Docusate 100 MG CAP PO SCH ×2 (09:55→21:16)
[2020-11-30] MEDS: Senokot S 8.6-50 MG TAB PO SCH ×2 (09:55→21:23)
[2020-11-30] MEDS: Polyethylene Glycol 3350 17 GM Packet PO SCH (09:55)
[2020-11-30] MEDS: Pantoprazole 40 MG VIAL IVP SCH ×2 (09:55→23:45)
[2020-11-30] MEDS ORDERED: Ziprasidone 20 MG CAP PO SCH (10:00)
[2020-11-30] MEDS ORDERED: Amiodarone 150 MG in Dextrose 5% in Water 100 ML IVPB SCH (11:45)
[2020-11-30] MEDS: Amiodarone 450 MG in Dextrose 5% in Water 250 ML IVPB SCH ×2 (12:47→21:17)
[2020-11-30] MEDS ORDERED: Meropenem 1 GM in Sodium Chloride 0.9% 100 ML IVPB SCH (14:00)
[2020-11-30] MEDS: methylPREDNISolone Sod Succ 40 MG VIAL IVP SCH ×2 (15:07→21:17)
[2020-11-30] MEDS: MEROPENEM 1 GM/50 ML 1 GM in Premix Bag 1 BAG IVPB SCH ×2 (15:11→23:45)
[2020-11-30] MEDS: Ziprasidone 20 MG CAP PO SCH (21:16)
[2020-11-30] MEDS: Morphine 4 MG/ML VIAL SLOW IVP PRN (21:58)
[2020-11-30] MEDS ORDERED: Fentanyl 100 MCG/2 ML VIAL SLOW IVP SCH (23:30)
[2020-12-01 00:08] LABS: Vancomycin, Random 13.1 ug/mL (See Comment)
[2020-12-01] MEDS ORDERED: Vancomycin 1 GM in Premix Bag 1 BAG IVPB SCH (01:00)
[2020-12-01] MEDS: Diltiazem 125 MG in Sodium Chloride 0.9% 100 ML IVPB SCH ×2 (01:53→09:53)
[2020-12-01] MEDS: Morphine 4 MG/ML VIAL SLOW IVP PRN ×4 (03:17→16:23)
[2020-12-01 04:11] LABS: Band 4 % (5-11); Hemoglobin 12.3 g/dL (12.0-16.0); Lymphocytes 5 % (21-51); MDiff Complete? YES; Mean Corpuscular HGB CONC 31.8 g/dL (32.0-36.0); Mean Corpuscular Hemoglobin 29.7 pg (27.0-31.0); Mean Corpuscular Volume 93.6 fL (78.0-98.0); Mean Platelet Volume 7.4 fL (7.4-10.4); Monocytes 4 % (0-10); Neutrophil 87 % (42-75); Platelet Count 207 thou/uL (130-400); RBC Distribution Width 12.5 % (11.5-14.5); Red Blood Cell (RBC) Count 4.15 mill/uL (4.20-5.40)
[2020-12-01 04:13] LABS: Anion Gap 16 mmol/L (10-20); BUN (Urea Nitrogen) 24 mg/dL (9.8-20.1); Calc. Creatinine Clearance 45 mL/min (70-130); Carbon Dioxide 24 mmol/L (23-31); Chloride 107 mmol/L (98-107); Glucose 229 mg/dL (83-110); Potassium 3.5 mmol/L (3.5-5.1); Sodium 143 mmol/L (136-145)
[2020-12-01 04:56] VITALS: BP 122/88
[2020-12-01] MEDS ORDERED: Potassium Chloride 20 MEQ TAB PO SCH (05:00)
[2020-12-01] MEDS: methylPREDNISolone Sod Succ 40 MG VIAL IVP SCH ×2 (06:06→16:10)
[2020-12-01] MEDS: MEROPENEM 1 GM/50 ML 1 GM in Premix Bag 1 BAG IVPB SCH ×2 (06:07→16:08)
[2020-12-01] MEDS ORDERED: Ziprasidone 20 MG CAP PO SCH (08:00)
[2020-12-01] MEDS: Metoprolol Tartrate 5 MG/5 ML VIAL IVP PRN (09:55)
[2020-12-01] MEDS: Senokot S 8.6-50 MG TAB PO SCH (10:09)
[2020-12-01] MEDS: Polyethylene Glycol 3350 17 GM Packet PO SCH (10:10)
[2020-12-01] MEDS: Pantoprazole 40 MG VIAL IVP SCH (10:10)
[2020-12-01] MEDS: Docusate 100 MG CAP PO SCH (10:10)
[2020-12-01 11:22] VITALS: TEMP 99.2
[2020-12-01] MEDS: Lorazepam 2 MG/ML VIAL SLOW IVP PRN ×2 (12:05→16:09)
[2020-12-01] MEDS: Dextrose 5% in Water 1,000 ML IV SCH ×2 (12:14→16:07)
[2020-12-01] MEDS: Amiodarone 450 MG in Dextrose 5% in Water 250 ML IVPB SCH (12:16)
== END 2020-12-01 18:07 | disposition hospice, inpatient (51) | DRG 871 ==
LOC: ERS 14:58 → IMCU/EMU 20:54
PROVIDERS: ADMIT Internal Medicine; ATTEND Family Medicine
DX: A41.9 Sepsis, unspecified organism (principal); J69.0 Pneumonitis due to inhalation of food and vomit; G93.41 Metabolic encephalopathy; I48.20 Chronic atrial fibrillation, unspecified; N17.9 Acute kidney failure, unspecified; K92.0 Hematemesis; E87.2 Acidosis; N30.00 Acute cystitis without hematuria; I50.32 Chronic diastolic (congestive) heart failure; I13.0 Hypertensive heart and chronic kidney disease with heart failure and stage 1 through stage 4 chronic kidney disease, or unspecified chronic kidney disease; F03.91 Unspecified dementia, unspecified severity, with behavioral disturbance; F05 Delirium due to known physiological condition; Z51.5 Encounter for palliative care; N18.30 Chronic kidney disease, stage 3 unspecified; Z66 Do not resuscitate; D64.9 Anemia, unspecified; K27.9 Peptic ulcer, site unspecified, unspecified as acute or chronic, without hemorrhage or perforation; G89.29 Other chronic pain; I95.9 Hypotension, unspecified; R33.9 Retention of urine, unspecified; E83.39 Other disorders of phosphorus metabolism; Z88.6 Allergy status to analgesic agent; Z88.1 Allergy status to other antibiotic agents; Z79.01 Long term (current) use of anticoagulants; Z85.3 Personal history of malignant neoplasm of breast; Z86.73 Personal history of transient ischemic attack (TIA), and cerebral infarction without residual deficits; Z90.710 Acquired absence of both cervix and uterus; Z98.49 Cataract extraction status, unspecified eye; Z90.13 Acquired absence of bilateral breasts and nipples
CPT/HCPCS: 0240U; 36415; 36416; 71045; 74018; 74177; 80048; 80053; 80202; 81003; 81015; 82040; 82550; 83735; 83880; 84100; 84484; 85025; 85610; 85730; 86850; 86900; 86901; 87040; 87086; 93005; 94640; 94760; C9113; J0282; J1940; J2060; J2185; J2270; J2405; J2543; J2550; J2920; J3010; J3370; J3475; J3480; J3490; J7070; J7620; Q9967